=== PATIENT | male | born 1985 | race African-American/Black ===

== ENCOUNTER → 2019-05-29 | Outpatient (CLI) | payer SELFPAY ==
[~2019-05-29] MED LIST: BENZ200C70 PO; MUCI600T31 PO; VENTAER INH
== END ==
LOC: M OUTALCOH 08:19
PROVIDERS: ATTEND Psychiatry & Neurology Psychiatry
DX: Z13.39 Encounter for screening examination for other mental health and behavioral disorders (principal); F15.20 Other stimulant dependence, uncomplicated; F12.20 Cannabis dependence, uncomplicated

== ENCOUNTER 2019-07-02 16:00 | Outpatient (RCR) | payer SELFPAY | END 2019-07-03 | LOC: M OUTALCOH 16:00 | PROVIDERS: ATTEND Psychiatry & Neurology Psychiatry | DX: F15.20 Other stimulant dependence, uncomplicated (principal); F12.10 Cannabis abuse, uncomplicated ==

== ENCOUNTER 2019-07-08 15:48 | Outpatient (RCR) | payer MEDICAID, SELFPAY | END 2019-08-02 | LOC: M OUTALCOH 15:48 | PROVIDERS: ATTEND Psychiatry & Neurology Psychiatry | DX: F15.20 Other stimulant dependence, uncomplicated (principal); F12.10 Cannabis abuse, uncomplicated ==

== ENCOUNTER 2019-08-07 06:42 | Emergency (ER) | payer MEDICAID ==
[~2019-08-07] VITALS: Ht 180.3 cm; Wt 95.5 kg
--- NOTE | 2019-08-07 08:18 | REP ---
Two-view chest: 08/07/2019. Indication: Cough. Comparison: None. Findings: There is no air space consolidation. No pleural effusion or pneumothorax are detected. The cardiomediastinal silhouette is unremarkable. Impression: Clear lungs. Electronically Signed by Brian Gordon DO 08/07/2019 08:09 A
[2019-08-07] MEDS ORDERED: VENTAER INH (08:40)
[2019-08-07] MEDS ORDERED: BENZ200C70 PO (08:40)
[2019-08-07] MEDS ORDERED: MUCI600T31 PO (08:40)
[2019-08-07 08:46] VITALS: BP 154/102
== END 2019-08-07 08:54 | disposition home or self-care (01) ==
LOC: M ED 06:42
DX: J20.9 Acute bronchitis, unspecified (principal); F17.200 Nicotine dependence, unspecified, uncomplicated; F12.20 Cannabis dependence, uncomplicated; Z88.2 Allergy status to sulfonamides

== ENCOUNTER 2019-08-13 08:20 | Emergency (ER) | payer MEDICAID ==
[~2019-08-13] VITALS: Ht 180.3 cm; Wt 97.5 kg
[2019-08-13 08:21] VITALS: BP 167/110
== END 2019-08-13 09:42 | disposition left against medical advice (07) ==
LOC: M ED 08:20
DX: Z53.21 Procedure and treatment not carried out due to patient leaving prior to being seen by health care provider (principal)

== ENCOUNTER 2019-12-05 18:20 | Emergency (ER) | payer MEDICAID ==
[~2019-12-05] VITALS: Ht 185.4 cm; Wt 90.4 kg
[2019-12-05] MEDS ORDERED: NS 1,000 ML IV ONE ×2 (18:30→19:45)
[2019-12-05 18:44] LABS: BASO % 0.6 % (0.0-1.0); EOS % 0.6 % (0.0-3.0); HEMATOCRIT 40.6 % (42.0-52.0); HEMOGLOBIN 14.2 g/dl (13.5-17.5); LYMPH # 1.3 10^3/uL (1.5-5.0); LYMPH % 27.2 % (24.0-44.0); MEAN CORPUSCULAR HEMOGLOBIN 32.3 pg (27.0-33.0); MEAN CORPUSCULAR VOLUME 92.3 fl (80.0-96.0); MONO # 0.6 10^3/uL (0.0-0.8); MONO % 13.3 % (0.0-5.0); NEUTROPHILS # 2.8 10^3/uL (1.5-8.5); NEUTROPHILS % 58.1 % (36.0-66.0); PLATELET COUNT, AUTOMATED 238 10^3/uL (150-450); WHITE BLOOD COUNT 4.8 10^3/uL (4.0-10.0)
[2019-12-05 19:28] LABS: ACETAMINOPHEN LEVEL < 2.0 UG/ML (10.0-30.0); ALBUMIN 4.3 GM/DL (3.2-5.2); ALT/SGPT 20 U/L (12-78); BILIRUBIN,DIRECT 0.2 MG/DL (0.0-0.2); BILIRUBIN,TOTAL 0.7 MG/DL (0.2-1.0); BLOOD UREA NITROGEN 15 MG/DL (7-18); CALCIUM LEVEL 9.3 MG/DL (8.5-10.1); CARBON DIOXIDE LEVEL 29 MEQ/L (21-32); CHLORIDE LEVEL 105 MEQ/L (98-107); CPK CREATINE PHOSPHOKINASE 428 U/L (39-308); CREATININE FOR GFR 1.04 MG/DL (0.70-1.30); ETHYL ALCOHOL (ETHANOL) < 0.003 % (0.000-0.010); GLOMERULAR FILTRATION RATE > 60.0 (>60); GLUCOSE, FASTING 111 MG/DL (70-100); POTASSIUM SERUM 3.7 MEQ/L (3.5-5.1); SALICYLATE LEVEL < 1.7 MG/DL (5.0-30.0); SODIUM LEVEL 139 MEQ/L (136-145); THYROID STIMULATING HORMONE 0.574 uIU/ML (0.358-3.740); TOTAL PROTEIN 7.9 GM/DL (6.4-8.2)
[2019-12-05 20:10] LABS: AMPHETAMINES LEVEL URINE POSITIVE (NEGATIVE); BARBITURATES URINE NEGATIVE (NEGATIVE); BENZODIAZEPINES URINE NEGATIVE (NEGATIVE); CANNABINOIDS URINE POSITIVE (NEGATIVE); COCAINE METABOLITE URINE NEGATIVE (NEGATIVE); METHADONE URINE NEGATIVE (NEGATIVE); OPIATES URINE NEGATIVE (NEGATIVE); PHENCYCLIDINE URINE NEGATIVE (NEGATIVE)
[2019-12-05 21:53] VITALS: BP 168/103
--- NOTE | 2019-12-06 06:35 | REP ---
CT BRAIN WITHOUT IV CONTRAST: CT brain performed without IV contrast. Coronal reconstruction images are performed. Ventricles are normal in size and position with no midline shift of mass effect. Tinajero-white differentiation is well maintained. There is no acute intracranial hemorrhage. There is no extra-axial fluid collection. No skull fracture is seen. Paranasal sinuses and mastoid air cells are well aerated and clear. IMPRESSION: Negative noncontrast CT brain. A preliminary report was provided by [facility] at the time of the exam. Electronically Signed by Nick Tinajero MD 12/06/2019 12:34 P
== END 2019-12-05 21:56 | disposition home or self-care (01) ==
LOC: M ED 18:20
DX: F12.10 Cannabis abuse, uncomplicated (principal); F15.10 Other stimulant abuse, uncomplicated; Z88.1 Allergy status to other antibiotic agents; Z88.2 Allergy status to sulfonamides; F17.210 Nicotine dependence, cigarettes, uncomplicated
CPT/HCPCS: 70450; 80048; 80076; 80307; 82550; 84443; 85025; 93041; 94760; 96360; 96361; 99284; G0480

== ENCOUNTER 2019-12-06 03:25 | Inpatient (IN) | payer MEDICAID ==
[2019-12-06] VITALS (18 sets, daily range): BP systolic 133–163; BP diastolic 86–116; O2SAT 100
[~2019-12-06] VITALS: Ht 170.2 cm; Wt 92.1 kg
[2019-12-06] MEDS ORDERED: PROPOFOL 1,000 MG/100 ML VIAL As Ordered ONE ×2 (03:31→20:12)
[2019-12-06 03:57] LABS: ABG BASE EXCESS -4.5 (-2.0-2.0); ABG HCO3 21.6 MEQ/L (22.0-26.0); ABG O2 SATURATION 98.8 % (95.0-99.0); ABG PARTIAL PRESSURE CO2 43.1 mmHg (35.0-45.0); ABG PARTIAL PRESSURE O2 139.8 mmHg (75.0-100.0); ABG STANDARD HCO3 20.8 MEQ/L (22.0-26.0); ABG TOTAL CO2 22.9 MEQ/L (22.0-29.0); ABG pH (ARTERIAL) 7.317 UNITS (7.350-7.450)
[2019-12-06] MEDS ORDERED: ETOMIDATE INJ 20MG/10ML VIAL IV ONE (04:00)
[2019-12-06] MEDS ORDERED: SUCCINYLCHOLINE INJ 200 MG/10 ML VIAL (J0330) IV ONE (04:00)
[2019-12-06] MEDS ORDERED: LIDOCAINE 2% 5ML JELLY UROJET TOP ONE (04:00)
[2019-12-06] MEDS: propofoL 1,000 MG in IV 1 EA IV SCH ×9 (04:34→22:58)
[2019-12-06] MEDS ORDERED: AMIODARONE HCL 150 MG in IV 1 EA IV STA (04:44)
[2019-12-06] MEDS ORDERED: VECURONIUM BROMIDE 10 MG VIAL IV ONE ×2 (04:45)
[2019-12-06 04:57] LABS: APPEARANCE, CSF CLEAR (CLEAR); COLOR, CSF COLORLESS (COLORLESS); CSF TUBE# CELL CNT TUBE 2
[2019-12-06 04:58] LABS: APPEARANCE, CSF CLEAR (CLEAR); COLOR, CSF COLORLESS (COLORLESS); CSF TUBE# CELL CNT TUBE 4
[2019-12-06 05:05] LABS: BASO % 0.6 % (0.0-1.0); EOS % 0.4 % (0.0-3.0); HEMOGLOBIN 14.1 g/dl (13.5-17.5); LYMPH # 1.8 10^3/uL (1.5-5.0); LYMPH % 26.8 % (24.0-44.0); MEAN CORPUSCULAR HEMOGLOBIN 31.9 pg (27.0-33.0); MEAN CORPUSCULAR HGB CONC 34.4 g/dl (32.0-36.5); MEAN CORPUSCULAR VOLUME 92.8 fl (80.0-96.0); MONO # 0.7 10^3/uL (0.0-0.8); MONO % 10.9 % (0.0-5.0); NEUTROPHILS # 4.1 10^3/uL (1.5-8.5); PLATELET COUNT, AUTOMATED 274 10^3/uL (150-450); RED BLOOD COUNT 4.42 10^6/uL (4.30-6.10); WHITE BLOOD COUNT 6.7 10^3/uL (4.0-10.0)
[2019-12-06 05:15] LABS: AMORPHOUS SEDIMENT SMALL (NEGATIVE); APPEARANCE, URINE HAZY (CLEAR); BACTERIA, URINE AUTO NEGATIVE (NEGATIVE); BILIRUBIN, URINE AUTO NEGATIVE (NEGATIVE); BLOOD, URINE BLOOD 1+ (NEGATIVE); COLOR, URINE YELLOW (YELLOW); GLUCOSE, URINE (UA) AUTO NEGATIVE (NEGATIVE); KETONE, URINE AUTO TRACE mg/dL (NEGATIVE); LEUKOCYTE ESTERASE, URINE AUTO NEGATIVE (NEGATIVE); MUCUS, URINE SMALL (NEGATIVE); NITRITE, URINE AUTO NEGATIVE (NEGATIVE); PROTEIN, URINE AUTO NEGATIVE (NEGATIVE); RBC, URINE AUTO 8 /HPF (0-3); SPECIFIC GRAVITY URINE AUTO 1.011 (1.002-1.035); SQUAMOUS EPITHELIAL CELL UR AU 0 /HPF (0-6); UROBILINOGEN, URINE AUTO 0.2 mg/dL (0.0-2.0); WBC, URINE AUTO 5 /HPF (0-3)
[2019-12-06 05:17] LABS: CSF TUBE# GLU TUBE 1; CSF TUBE# TP TUBE 1; GLUCOSE CSF 75 MG/DL (40-75); TOTAL PROTEIN,CSF 34 MG/DL (15-45)
[2019-12-06 05:21] LABS: ALBUMIN 4.3 GM/DL (3.2-5.2); ALT/SGPT 19 U/L (12-78); BILIRUBIN,DIRECT 0.3 MG/DL (0.0-0.2); BLOOD UREA NITROGEN 11 MG/DL (7-18); CALCIUM LEVEL 8.8 MG/DL (8.5-10.1); CARBON DIOXIDE LEVEL 24 MEQ/L (21-32); CHLORIDE LEVEL 104 MEQ/L (98-107); CPK CREATINE PHOSPHOKINASE 477 U/L (39-308); CREATININE FOR GFR 1.21 MG/DL (0.70-1.30); ETHYL ALCOHOL (ETHANOL) < 0.003 % (0.000-0.010); GLOMERULAR FILTRATION RATE > 60.0 (>60); GLUCOSE, FASTING 114 MG/DL (70-100); POTASSIUM SERUM 3.5 MEQ/L (3.5-5.1); SODIUM LEVEL 137 MEQ/L (136-145)
[2019-12-06] MEDS ORDERED: NS 1,000 ML IV ONE ×2 (05:30→05:45)
[2019-12-06 05:34] LABS: AMPHETAMINES LEVEL URINE POSITIVE (NEGATIVE); BARBITURATES URINE NEGATIVE (NEGATIVE); BENZODIAZEPINES URINE NEGATIVE (NEGATIVE); CANNABINOIDS URINE POSITIVE (NEGATIVE); COCAINE METABOLITE URINE NEGATIVE (NEGATIVE); METHADONE URINE NEGATIVE (NEGATIVE); OPIATES URINE NEGATIVE (NEGATIVE); PHENCYCLIDINE URINE NEGATIVE (NEGATIVE)
[2019-12-06] MEDS ORDERED: MIDAZOLAM INJ 2 MG/2 ML VIAL (J2250) IV STA (06:10)
[2019-12-06] MEDS ORDERED: ALBUTEROL SULFATE 2.5 MG/0.5 ML INH NEB SOLN NEB PRN (06:45)
[2019-12-06] MEDS: NS 1,000 ML IV SCH ×3 (06:53→20:18)
[2019-12-06] MEDS: PANTOPRAZOLE 40MG INJ (PROTONIX) (C9113) IV SCH (08:27)
[2019-12-06] MEDS: ENOXAPARIN 30 MG/0.3 ML SYR (J1650) SC SCH (08:28)
[2019-12-06] MEDS: CHLORHEXIDINE GLUCONATE 0.12 % 15ML UDC (PERIDEX ORAL RINSE) MT SCH ×2 (08:28→20:16)
--- NOTE | 2019-12-06 08:36 | ECGEPIP ---
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
[2019-12-06 09:16] LABS: INFLUENZA A AMPLIFICATION NEGATIVE (NEGATIVE); INFLUENZA B AMPLIFICATION NEGATIVE (NEGATIVE)
--- NOTE | 2019-12-06 09:44 | HPE ---
DATE OF ADMISSION: 12/06/2019 HISTORY OF PRESENT ILLNESS: Mr. Miguel a 34-year-old male who was brought to the emergency department this evening by the police, he was very combative, he was very agitated in the emergency department and was spitting at staff. Decision was made to intubate. Because of his combativeness, it was felt necessary to intubate him to protect himself from harm. He was so combative that the police had him in four-points and he had to be paralyzed for intubation. Mr. Miguel had previously been to the emergency department this afternoon for altered mental status, felt secondary to amphetamines abuse. After he had been observed for a period of time and given an IV fluid bolus, he was felt ready for discharge and was discharged to home. His tox screen at that time was positive for amphetamine and cannabinoids but otherwise negative. Alcohol was less than 0.03. PAST MEDICAL HISTORY: No other history is obtainable secondary to agitation. MEDICATIONS ON ADMISSION: No known medications, but again history is not obtainable secondary to intubation. ALLERGIES: SULFA. SOCIAL HISTORY, FAMILY HISTORY AND REVIEW OF SYSTEMS: Unobtainable secondary to intubation. PHYSICAL EXAMINATION: General: Mr. Miguel is lying in bed synchronous with the ventilator. He is sedated. Vital signs: Temperature 99.9 with a maximum temperature (t-max) of 101, pulse 72, respiratory rate 16, blood pressure 152/91 with a MAP of 111, SPO2 100% on FIO2 of 0.4. HEENT: Anicteric, pupils 2-3 mm and reactive (had been reported as dilated when he came in). Nares: Patent bilaterally. Oropharynx: ET tube in place. Neck: Supple, without thyromegaly or masses. Without jugular venous distention (JVD), trachea is midline. Lymphatics: Without cervical or supraclavicular lymphadenopathy. Chest: Normal shape. Lungs: Symmetric excursion, good air entry. No wheeze, rhonchi, rhonchi or crackle on tidal excursion. Normal I to E. No accessory muscle usage or retractions. Cardiovascular: Regular rate and rhythm with normal S1, S2. No murmur, rub or gallop appreciated. Abdomen: Positive bowel sounds, soft, nondistended. No hepatosplenomegaly or masses appreciated. Extremities: Without clubbing, cyanosis or edema. Palpable pedal pulses bilaterally. Skin: Notable for some tattoos. No track weinbegr seen. LABORATORY DATA: CBC showed a hemoglobin of 14.1, hematocrit 41, platelet count 274,000, white blood cell count 6700 with a differential 61% neutrophils, 27% lymphocytes, 11% monocytes. Chemistries shows sodium 137, potassium 3.5, chloride 104, bicarbonate 24, anion gap 9, BUN 11, creatinine 1.2, glucose 114, lactic acid 6.3, calcium 8.8, total bilirubin 1.0, tract bilirubin 0.3, AST 23, ALT 19, alkaline phosphatase 43, CK 477, total protein 8.0, albumin 4.3. Urinalysis showed a pH of 6, specific gravity 1.01, trace ketones, 1+ blood, 5 WBCs, 8 RBCs, and negative for bacteria. CSF on the first tube was clear with 2 WBCs and less than two RBCs, glucose 75 and total protein of 34. Urine toxicology screen is again positive for amphetamines and cannabinoids. Alcohol was less than 0.0003. Arterial blood gas was 7.32 / 43/140 with a measured saturation of 99%, a base excess of -4.5. I do not know how much oxygen this was on, but I believe this was shortly after intubation. I reviewed his chest x-ray, which shows normal-appearing cardiac silhouette and pulmonary vascular shadows. No acute infiltrates. ET tube is in good position. His head CT reportedly showed no pathology, and I did not see any in my review of the film. IMPRESSION: 1. Acute respiratory failure leading to mechanical ventilation secondary to need for sedation. 2. Severe agitation leading to need for intubation, there is likely a contribution from amphetamines but given his level of agitation, I question if there is not a synthetic involved as well. 3. Amphetamine abuse. RECOMMENDATIONS: We will continue with intubation and sedation. Given his level of agitation, I would not be surprised that he does not require sedation for 1-2 days. We will follow lung protective strategy with the ventilator. Follow VAP protocol for the ventilator. Critical care time of 40 minutes, not including procedure time.
--- NOTE | 2019-12-06 10:41 | REP ---
CT BRAIN WITHOUT CONTRAST: CT brain performed without IV contrast. Coronal reconstruction images are performed. Comparison made with prior study of 12/05/2019. Ventricles are again normal in size and position. There is no midline shift or mass effect. Tinajero-white differentiation is well maintained. There is no acute intracranial hemorrhage. There is no extra-axial fluid collection. Bone window examination is unremarkable. IMPRESSION: Negative noncontrast CT brain. Preliminary report provided by [facility] at the time of the exam. Electronically Signed by Nick Tinajero MD 12/06/2019 12:36 P
--- NOTE | 2019-12-06 11:26 | REP ---
CHEST, SINGLE VIEW: Single view of the chest is performed and compared to a prior study of 08/07/2019. There is no acute infiltrate or pulmonary edema. Heart is normal in size. Mediastinal silhouette is unremarkable. Endotracheal tube is seen with the tip approximately 5 cm above the orion. Electronically Signed by Nick Tinajero MD 12/06/2019 12:48 P
[2019-12-06 11:47] LABS: ABG BASE EXCESS 0.4 (-2.0-2.0); ABG HCO3 25.3 MEQ/L (22.0-26.0); ABG O2 SATURATION 99.3 % (95.0-99.0); ABG PARTIAL PRESSURE CO2 41.9 mmHg (35.0-45.0); ABG PARTIAL PRESSURE O2 198.5 mmHg (75.0-100.0); ABG STANDARD HCO3 24.9 MEQ/L (22.0-26.0); ABG TOTAL CO2 26.6 MEQ/L (22.0-29.0); ABG pH (ARTERIAL) 7.399 UNITS (7.350-7.450)
[2019-12-06 17:29] LABS: CK-MB VALUE MASS 3.7 NG/ML (<3.6); CPK CREATINE PHOSPHOKINASE 377 U/L (39-308); MB/CK RELATIVE INDEX 0.98 (< OR =4); TROPONIN I < 0.02 NG/ML (< 0.10)
[2019-12-06] MEDS: MIDAZOLAM INJ 2 MG/2 ML VIAL (J2250) IV PRN ×2 (18:36→22:12)
[2019-12-07] VITALS (26 sets, daily range): BP systolic 113–181; BP diastolic 65–115; O2SAT 100
[2019-12-07] MEDS: propofoL 1,000 MG in IV 1 EA IV SCH ×10 (01:05→21:53)
[2019-12-07] MEDS: MIDAZOLAM INJ 2 MG/2 ML VIAL (J2250) IV PRN ×7 (02:07→16:03)
[2019-12-07 04:29] LABS: BASO % 0.7 % (0.0-1.0); EOS # 0.1 10^3/uL (0.0-0.5); EOS % 1.2 % (0.0-3.0); HEMATOCRIT 37.5 % (42.0-52.0); HEMOGLOBIN 12.8 g/dl (13.5-17.5); LYMPH # 1.1 10^3/uL (1.5-5.0); LYMPH % 25.8 % (24.0-44.0); MEAN CORPUSCULAR HEMOGLOBIN 31.9 pg (27.0-33.0); MEAN CORPUSCULAR HGB CONC 34.1 g/dl (32.0-36.5); MEAN CORPUSCULAR VOLUME 93.5 fl (80.0-96.0); MONO # 0.4 10^3/uL (0.0-0.8); NEUTROPHILS # 2.6 10^3/uL (1.5-8.5); NEUTROPHILS % 63.3 % (36.0-66.0); PLATELET COUNT, AUTOMATED 208 10^3/uL (150-450); RED BLOOD COUNT 4.01 10^6/uL (4.30-6.10); WHITE BLOOD COUNT 4.1 10^3/uL (4.0-10.0)
[2019-12-07 05:14] LABS: ALBUMIN 3.1 GM/DL (3.2-5.2); ALT/SGPT 13 U/L (12-78); BILIRUBIN,TOTAL 0.4 MG/DL (0.2-1.0); BLOOD UREA NITROGEN 6 MG/DL (7-18); CALCIUM LEVEL 8.3 MG/DL (8.5-10.1); CARBON DIOXIDE LEVEL 29 MEQ/L (21-32); CHLORIDE LEVEL 110 MEQ/L (98-107); CHOLESTEROL LEVEL 143 MG/DL (< 200); CPK CREATINE PHOSPHOKINASE 249 U/L (39-308); CREATININE FOR GFR 0.76 MG/DL (0.70-1.30); GLOMERULAR FILTRATION RATE > 60.0 (>60); GLUCOSE, FASTING 75 MG/DL (70-100); LDH LACTATE DEHYDROGENASE 172 U/L (87-241); MAGNESIUM LEVEL 2.2 MG/DL (1.8-2.4); PHOSPHORUS LEVEL 3.2 MG/DL (2.5-4.9); POTASSIUM SERUM 3.3 MEQ/L (3.5-5.1); SODIUM LEVEL 141 MEQ/L (136-145); TOTAL PROTEIN 6.4 GM/DL (6.4-8.2); TRIGLYCERIDES LEVEL 70 MG/DL (<150)
[2019-12-07] MEDS: MORPHINE 2 MG/ML 1ML VIAL (J2270) IV PRN ×2 (06:04→12:04)
[2019-12-07] MEDS: CHLORHEXIDINE GLUCONATE 0.12 % 15ML UDC (PERIDEX ORAL RINSE) MT SCH ×2 (08:09→20:11)
[2019-12-07] MEDS: PANTOPRAZOLE 40MG INJ (PROTONIX) (C9113) IV SCH (08:09)
[2019-12-07] MEDS: NS 1,000 ML IV SCH (08:10)
[2019-12-07] MEDS: ENOXAPARIN 30 MG/0.3 ML SYR (J1650) SC SCH (08:10)
--- NOTE | 2019-12-07 09:17 | ECGEPIP ---
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
--- NOTE | 2019-12-07 10:12 | REP ---
CHEST, SINGLE VIEW: Single view of the chest is performed. Comparison 12/06/2019. An endotracheal tube is seen with the tip 1.7 cm above the orion. Nasogastric tube traverses into the stomach. Heart is normal in size. No infiltrate is seen in either lung. Electronically Signed by Nick Tinajero MD 12/07/2019 11:01 A
[2019-12-07] MEDS ORDERED: REFRIGERATOR IV KEYS XX PRN (13:00)
[2019-12-07] MEDS ORDERED: MIDAZOLAM HCL 100 MG in D5W 80 ML IV SCH (14:00)
[2019-12-07] MEDS: KCL 20MEQ IN D5/0.45NS 1000ML 1,000 ML IV SCH (14:21)
[2019-12-07] MEDS: KCL 10MEQ/100ML SWI (KRUN) 10 MEQ in IV 1 EA IV SCH ×2 (14:21→15:25)
--- NOTE | 2019-12-07 17:56 | CCN ---
DATE: 12/07/2019 NOTE: Mr. Miguel remains critically ill with acute respiratory failure secondary to the need for sedation given agitation. He had some difficulty with hypertension throughout the day yesterday that was, in part, responsive to benzodiazepine. It is not known whether or not he has hypertension at baseline. This morning, on his sedation holiday, he actively struck out at nursing . It appeared to be a conscious movement. One of the therapists asking him if he had taken Dariana and he looked her in the eyes and nodded yes. It is not known if this is a true response to a synthetic. He has minimal secretions. No other events overnight. OBJECTIVE: PHYSICAL EXAMINATION: GENERAL: Mr. Miguel is lying in bed. He had a few moments of agitation when I was there that responded to increased sedation. VITAL SIGNS: Temperature 97.8, which is his maximum temperature (T-max), most recent blood pressure 162/106, which was around the time of his sedation trial, pulse 72, respiratory rate 18, SpO2 100% on FiO2 of 0.3. HEENT: Anicteric, pupils 3-4 mm and sluggish. Nares: Patent bilaterally. Oropharynx: Endotracheal (ET) tube and orogastric (OG) tube in place. NECK: Supple, without jugular venous distention (JVD), thyromegaly or masses, trachea is midline. LYMPHATICS: Without cervical or supraclavicular lymphadenopathy. LUNGS: Symmetric excursion, good air entry, no wheeze, rhonchi or crackle on tidal excursion. Normal inspiratory to expiratory ratio (I:E). No accessory muscle use retractions. CARDIOVASCULAR: Regular rate and rhythm with a normal S1, S2. No murmur, rub or gallop appreciated. ABDOMEN: Positive bowel sounds, soft, nondistended, no hepatosplenomegaly or masses appreciated. EXTREMITIES: Without clubbing, cyanosis or significant edema. Warm and well-perfused. LABORATORY DATA: Complete blood count (CBC) from this morning showed a hemoglobin of 12.8, hematocrit 37.5, platelet count 209,000, white blood cell count 4100, with a differential of 63% neutrophils, 26% lymphocytes, 9% monocytes. Chemistries from this morning showed a sodium 141, potassium 3.3, chloride 110, bicarbonate 29, anion gap 2, BUN 6, creatinine 0.8, glucose 75, calcium 8.3, phosphorus 3.2, magnesium 2.2. Total bilirubin 0.4, AST 17, ALT 13, alkaline phosphatase 34, LDH 172, CK 249, total protein 6.4, albumin 3.1. Yesterday afternoon, he had a CK of 377 (down from 477) and a troponin-I of less than 0.02. He had an EKG done yesterday afternoon which showed a sinus rhythm with a rate of 67. There were findings of early repolarization and no change compared to his EKG that was obtained at the time of admission. Yesterdays intake and output (I and O): 3567 in and 3625 out, making him negative 58. Thus far today, 69 in and 750 out, making him a negative 281. I reviewed his chest x-ray as well as the report from earlier today. That x-ray showed normal-appearing cardiac silhouette and pulmonary vascular shadows. Normal-appearing mediastinal and hilar regions. No consolidated regions. ET tube in good position. IMPRESSION: 1. Acute respiratory failure secondary to sedation needed for agitation related to an overdose. 2. Agitation felt secondary to drug usage. Toxicology screen was positive for amphetamines. It is suspected based on his level of agitation that he also has a synthetic involved as well. He appeared to indicate that is the case this morning when respiratory therapy was asking him questions. 3. Known amphetamine abuse. 4. Hypertension. RECOMMENDATIONS: 1. With his level of agitation, he is not yet ready for extubation. 2. He is maxed out on propofol. Therefore, we will add a Versed drip. I have asked that not be titrated, but rather be kept at 2 mg per hour with use of boluses on top of that. 3. In regards to his hypertension, would start with increasing benzodiazepine usage. 4. Hypertension. This may be in part secondary to amphetamine usage. It is also unknown whether he has underlying hypertension at baseline. Critical care time: 35 minutes.
[2019-12-08] VITALS (13 sets, daily range): BP systolic 119–159; BP diastolic 64–87
[2019-12-08] MEDS: propofoL 1,000 MG in IV 1 EA IV SCH ×4 (00:09→07:13)
[2019-12-08] MEDS: MIDAZOLAM INJ 2 MG/2 ML VIAL (J2250) IV PRN ×3 (00:32→06:03)
[2019-12-08] MEDS: KCL 20MEQ IN D5/0.45NS 1000ML 1,000 ML IV SCH (03:59)
[2019-12-08 06:17] LABS: BASO % 0.3 % (0.0-1.0); EOS % 0.6 % (0.0-3.0); HEMATOCRIT 36.9 % (42.0-52.0); HEMOGLOBIN 13.1 g/dl (13.5-17.5); LYMPH # 0.6 10^3/uL (1.5-5.0); LYMPH % 8.5 % (24.0-44.0); MEAN CORPUSCULAR HEMOGLOBIN 34.1 pg (27.0-33.0); MEAN CORPUSCULAR HGB CONC 35.5 g/dl (32.0-36.5); MEAN CORPUSCULAR VOLUME 96.1 fl (80.0-96.0); MONO # 0.5 10^3/uL (0.0-0.8); MONO % 7.2 % (0.0-5.0); NEUTROPHILS # 5.7 10^3/uL (1.5-8.5); NEUTROPHILS % 83.1 % (36.0-66.0); PLATELET COUNT, AUTOMATED 205 10^3/uL (150-450); RED BLOOD COUNT 3.84 10^6/uL (4.30-6.10); WHITE BLOOD COUNT 6.8 10^3/uL (4.0-10.0)
--- NOTE | 2019-12-08 07:58 | REP ---
Portable chest x-ray: Single view. History: Intubated patient. Comparison study December 07, 2019. Findings: The patient is rotated slightly to the left. Endotracheal tube is seen in good position just above the level of the transverse aorta. An NG tube is seen coursing into the gastric fundus. The lungs are symmetrically aerated and free of infiltrate. Pleural angles are sharp. Heart size is normal. No infiltrate is seen. Impression: No acute disease. Electronically Signed by Carroll Allen MD 12/08/2019 07:50 A
[2019-12-08 08:18] LABS: ALBUMIN 3.2 GM/DL (3.2-5.2); ALT/SGPT 16 U/L (12-78); BILIRUBIN,TOTAL 0.4 MG/DL (0.2-1.0); BLOOD UREA NITROGEN 3 MG/DL (7-18); CALCIUM LEVEL 8.5 MG/DL (8.5-10.1); CARBON DIOXIDE LEVEL 30 MEQ/L (21-32); CHLORIDE LEVEL 107 MEQ/L (98-107); CHOLESTEROL LEVEL 153 MG/DL (< 200); CPK CREATINE PHOSPHOKINASE 150 U/L (39-308); CREATININE FOR GFR 0.99 MG/DL (0.70-1.30); GLOMERULAR FILTRATION RATE > 60.0 (>60); GLUCOSE, FASTING 100 MG/DL (70-100); LDH LACTATE DEHYDROGENASE 197 U/L (87-241); MAGNESIUM LEVEL 1.9 MG/DL (1.8-2.4); PHOSPHORUS LEVEL 2.7 MG/DL (2.5-4.9); POTASSIUM SERUM 3.5 MEQ/L (3.5-5.1); SODIUM LEVEL 141 MEQ/L (136-145); TOTAL PROTEIN 6.6 GM/DL (6.4-8.2); TRIGLYCERIDES LEVEL 159 MG/DL (<150)
[2019-12-08] MEDS: PANTOPRAZOLE 40MG INJ (PROTONIX) (C9113) IV SCH (09:00)
[2019-12-08] MEDS: ENOXAPARIN 30 MG/0.3 ML SYR (J1650) SC SCH (09:00)
--- NOTE | 2019-12-08 11:45 | CCN ---
DATE: 12/08/2019 NOTE: Mr. Miguel stayed well overnight. He had improved blood pressures, either secondary to being on a Versed drip or time. He did have a temperature of 100.6. He had a small amount of discolored sputum this morning. On his sedation holiday he was alert, awake and following commands. He had a strong cough. At bedside, he was placed on a weaning trial with a pressure support of 5 and a PEEP of 5 and did well, taking in tidal volumes of 350-400, and rapid shallow breathing index in the 60s. It was therefore felt that he could be extubated. OBJECTIVE: PHYSICAL EXAMINATION: GENERAL: Mr. Miguel is intubated and synchronous with the ventilator. VITAL SIGNS: Temperature 98.7, pulse 86, respiratory rate 15, blood pressure 140/85. SPO2 100% on FiO2 of 0.3. HEENT: Anicteric, pupils 3 mm and brisk. Nares: Patent bilaterally. Oropharynx: ET tube and OG tube in place. NECK: Supple, without JVD, without thyromegaly or masses, trachea is midline. LYMPH: Without cervical or supraclavicular lymphadenopathy. LUNGS: Symmetric excursion, good air entry. No wheeze, rhonchi or crackle on tidaled excursion. Normal I:E. ABDOMEN: Positive bowel sounds, soft, no hepatosplenomegaly or masses appreciated. EXTREMITIES: Warm and well-perfused, palpable pedal pulses bilaterally. LABORATORY DATA: CBC from this morning showed a hemoglobin of 13.1, hematocrit 36.9, platelet count 205,000, white blood cell count 6800 with a differential of 83% neutrophils, 9% lymphocytes, and 7% monocytes. Chemistry showed sodium 141, potassium 3.5, chloride 107, bicarbonate 30, anion gap 4, BUN 3, creatinine 1.0, glucose 100, calcium 8.5, phosphorus 2.7, magnesium 1.9, total bilirubin 0.4, AST 20, ALT 16, alkaline phosphatase 42, LDH 197, CK 150 (down from 249), total protein 6.66, albumin 3.2. Yesterday's intake and output show 1730 in and 2425 out making him negative 695. Thus far today 1326 in and 1425 out making him negative 99. Weight 92.1 kg. I reviewed his chest x-ray was well as the report from earlier today. That x-ray showed normal appearing cardiac silhouette and pulmonary vascular shadows. Normal appearing mediastinal and hilar regions. No acute infiltrates. Endotracheal tube in good position. IMPRESSION: 1. Acute respiratory failure secondary to sedation required for agitation. 2. Agitation felt secondary did drug usage. Toxicology screen was positive for amphetamines. It was also suspected, based on his level agitation, that he also took a synthetic. 3. Known amphetamine abuse. 4. Hypertension. RECOMMENDATIONS: 1. As noted above, on a bedside weaning trial he appeared ready for extubation and we will proceed with extubation. 2. Given that there are reports that he was found in the community asking people to shoot, we will obtain a psychiatry consult. 3. In regards to his hypertension, will continue to monitor now once he is no longer on benzodiazepines. We will also be able to determine whether or not he has ever carried a diagnosis of hypertension. ADDENDUM: I saw Mr. Miguel a couple of hours after he was extubated. He is doing well. He passed his bedside swallow evaluation and is asking for food. He is beginning to recall the events that led up to his admission. He is hemodynamically stable following extubation with a blood pressure 139/80 (103), pulse 92, SPO2 98% on room air. CRITICAL CARE TIME: 35 minutes not including procedure time.
[2019-12-08] MEDS ORDERED: ACETAMINOPHEN TAB 650MG DOSE (2X325MG) PO PRN (12:15)
[2019-12-08] MEDS: DOXYCYCLINE HYCLATE 100 MG TAB PO SCH ×2 (12:44→21:25)
--- NOTE | 2019-12-08 13:47 | MHCRPDOC ---
[facility] Consultation Consultation DATE OF CONSULTATION: 12/08/19 CONSULTATION REQUESTED BY: REASON FOR CONSULTATION: . RELEVANT HISTORY: . PAST PSYCHIATRIC HISTORY: PAST MEDICAL HISTORY: FAMILY HISTORY: Mother: Father: Siblings: Children: PERSONAL AND SOCIAL HISTORY: The patient was born and raised in [place]. 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 MENTAL STATUS EXAMINATION: Patient is a [AGE]-year old male, who is . Speech is . Language skills are . Thought processes including: . Thought content: . Abstract reasoning, and computation: . Description of associations: . Description of abnormal or psychotic thoughts: . Judgment: . Insight: . Orientation to . Recent and remote memory: . Attention span and concentration: . Language: . Fund of knowledge: . Mood: . Affect: . DIAGNOSIS: 1. . PLAN: 1. . 2. . Vital Signs Vital Signs Date Time Temp Pulse Resp B/P (MAP) Pulse Ox O2 Delivery O2 Flow Rate FiO2 12/08/19 12:00 101.5 89 143/81 (101) 96 Room Air 12/08/19 09:00 28 12/08/19 07:13 15 Laboratory Data 24H Labs Laboratory Tests 2 12/08/19 05:47: Immature Granulocyte % (Auto) 0.3, Neutrophils (%) (Auto) 83.1H, Lymphocytes (%) (Auto) 8.5L, Monocytes (%) (Auto) 7.2H, Eosinophils (%) (Auto) 0.6, Basophils (%) (Auto) 0.3, Neutrophils # (Auto) 5.7, Lymphocytes # (Auto) 0.6L, Monocytes # (Auto) 0.5, Eosinophils # (Auto) 0.0, Basophils # (Auto) 0.0, Nucleated Red Blood Cells % (auto) 0.0 12/08/19 07:35: Anion Gap 4L, Glomerular Filtration Rate > 60.0, Calcium Level 8.5, Phosphorus Level 2.7, Magnesium Level 1.9, Total Bilirubin 0.4, Aspartate Amino Transf (AST/SGOT) 20, Alanine Aminotransferase (ALT/SGPT) 16, Alkaline Phosphatase 42L, Lactate Dehydrogenase 197, Total Creatine Kinase 150, Total Protein 6.6, Albumin 3.2, Albumin/Globulin Ratio 0.94L, Triglycerides Level 159H, Cholesterol Level 153 Home Medications Current Medications Current Medications Medications (Trade) Dose Ordered Sig/Elbert Route PRN Reason Start Time Stop Time Status Last Admin Dose Admin Acetaminophen (Tylenol Tab) 650 mg Q4HP PRN PO PAIN OR FEVER 12/08/19 12:15 12/08/19 12:20 Albuterol Sulfate (Proventil Neb) 2.5 mg Q6HP PRN NEB SHORTNESS OF BREATH 12/06/19 06:45 Amiodarone HCl 150 mg/IV Miscellaneous Supplies 100 ml @ 600 mls/hr STAT STAT IV 12/06/19 04:44 12/06/19 04:51 DC Chlorhexidine Gluconate (Peridex Oral Rinse) SWAB/BRUSH ORAL CAVITY BID MT 12/06/19 09:00 12/08/19 09:15 DC 12/07/19 20:11 Doxycycline Hyclate (Vibramycin) 100 mg BID PO 12/08/19 09:00 12/14/19 08:59 12/08/19 12:44 Enoxaparin Sodium (Lovenox) 30 mg DAILY SC 12/06/19 09:00 12/07/19 08:10 Home Med (Med Rec Complete!) ASDIRECTED XX 12/06/19 06:15 12/06/19 06:13 DC Midazolam HCl (Versed) 2 mg Q15MP PRN IV AGITATION 12/06/19 06:45 12/08/19 09:15 DC 12/08/19 06:03 Midazolam HCl (Versed) 5 mg STAT STAT IV 12/06/19 06:10 12/06/19 06:11 DC 12/06/19 06:16 Midazolam HCl 100 mg/Dextrose 100 ml @ 2 mls/hr Q24H IV 12/07/19 14:00 12/08/19 09:15 DC 12/07/19 13:40 Morphine Sulfate (Morphine Sulfate Inj) 2 mg Q2H PRN IV PAIN 12/06/19 06:45 12/08/19 09:15 DC 12/07/19 12:04 Non-Formulary Medication (Refrigerator Schaeffer) Q1M PRN XX SEE LABEL COMMENTS 12/07/19 13:00 Pantoprazole Sodium (Protonix) 40 mg DAILY IV 12/06/19 09:00 12/07/19 08:09 Potassium Chloride 10 meq/ IV Miscellaneous Supplies 100 ml @ 100 mls/hr Q1H IV 12/07/19 14:00 12/07/19 15:59 DC 12/07/19 15:25 Potassium Chloride/Dextrose/ Sod Cl 1,000 ml @ 75 mls/hr [id number] IV 12/07/19 16:00 12/08/19 09:15 DC 12/08/19 03:59 Propofol 1000 mg/ IV Miscellaneous Supplies 100 ml @ 5.37 mls/hr [id number] IV 12/06/19 06:43 12/08/19 09:15 DC 12/08/19 07:13 Propofol 1000 mg/ IV Miscellaneous Supplies 100 ml @ 13.425 mls/ hr [id number] IV 12/06/19 04:00 12/06/19 06:50 DC 12/06/19 06:11 Sodium Chloride 1,000 ml @ 75 mls/hr [id number] IV 12/06/19 06:43 12/07/19 13:23 DC 12/07/19 08:10 No Active Prescriptions or Reported Meds Allergies Coded Allergies: Sulfa (Sulfonamide Antibiotics) (Verified Allergy, Unknown, 08/07/19) SAMMIE WARREN DO Dec 08, 2019 13:47
--- NOTE | 2019-12-08 19:26 | MHCRPDOC ---
[facility] Consultation Consultation DATE OF CONSULTATION: 12/08/19 Initial Evaluation Justin Miguel Age 34 Male Date of : 1985 Date of Service: 12/08/2019 Chief Complaint "I don't remember anything" History of Present Illness Justin Miguel is a 34-year-old man with altered mental status in the context of substance use. He had been in the ER the day before this current presentation, arriving via EMS on 12/05/19. He presented with paranoid and bizarre delusions at that time. He was making comments such as that he was an "alien". He was not admitted to the hospital at that time. His toxicology was positive for cannabis and amphetamines. He is positive for these substances in this current presentation as well. He presented again the following day (12/06/19). sr. social media & mobile manager assessment indicated that the patient was "approaching people on the street and asking them to shoot him." The [facility] mental health evaluation on 12/06/19 reports that the patient was "found in community to be acting bizarre and agitated". While in the ER, he was markedly agitated to the point of requiring intubation. There was some initial difficulty extubating him due to trying to hit others during extubation trials. He was eventually successfully extubated and was awake and alert. On evaluation, Justin said that he was unable to remember what had transpired before coming to the hospital. He initially stated that he has ADHD when he was told of the circumstances of his presentation to the ER, including his urine toxicology being positive for cannabis and amphetamines. He later said that someone must have laced his coffee. Wil denies SI and HI at this time. He denies perceptual abnormalities, but does endorse paranoid thoughts of "people out to get me". Past Psychiatry History No controlled substance prescriptions were found reviewing I-STOP (reference number [id number]). Patient denied ever being in psychiatric treatment. However, he had presented to [facility] outpatient clinic for substance counseling in 2010. No evidence of inpatient hospitalizations were found in the EMR or in [facility]. Past Medical History Denies medical conditions, current prescription medications, or known drug allergies. Family, Social History (PFSH) Endorses a pervasive history of family substance use. Reports that he had been released from halfway around a week ago. He states that he has been in halfway "more than half my life". He says that his family is in [place] and [place]. Review of Systems Depression: Denies depressed mood, SI, or HI. Anxiety: Screened negative. PTSD: Screened negative. Colleen: Screened negative BPD: Screened negative Psychosis: Denies AVH, endorses paranoid thoughts. Physical Exam Vitals: See below General appearance: Appears staged age with good hygiene and grooming; dressed in seasonally-appropriate attire Speech: Within normal limits for volumes and amount, decreased rate Thought process (logical vs. illogical or disorganized): logical Thought content: No SI/HI/AVH elicited. Paranoid thoughts present Affect: euthymic Mood: "I'm not homicidal or suicidal" Orientation: AOx3 Memory: retrieval memory 2/3 objects, encoding memory intact, long-term and short-term memory intact Attention/concentration: Unable to spell the word "house" backwards, but he is able to name or list the days of the week backwards Insight: Fair in that he recognizes that he needs treatments Judgment: Poor Data Medical Records/Labs/Diagnostic Tests Reviewed Medical Decision Making Assessment: Justin presents with delusional thinking in the context of amphetamine, cannabis, and possibly other undetectable substance use. His prior suicidal thoughts were in the context of intoxication, and he denies these thoughts at this time. However, he still has paranoia. He is agreeable to go to [facility] once medically stabilized for continued treatment of paranoia with outpatient referral for substance use treatment. Diagnoses: 1. substance/medication-induced psychotic disorder 2. stimulant (amphetamine) use disorder, severe 3. cannabis use disorder, unspecified 4. rule-out primary psychotic disorder Plan: Reassess paranoia once medically stabilized (has one more day of observation); if still present, admit to [facility] Consultation Time Spent: 70 minutes, with greater than 50% of time spent in counseling/coordination of care. Nick Sanchez MD Vital Signs Vital Signs Date Time Temp Pulse Resp B/P (MAP) Pulse Ox O2 Delivery O2 Flow Rate FiO2 12/08/19 16:28 100.6 12/08/19 12:00 89 143/81 (101) 96 Room Air 12/08/19 09:00 28 12/08/19 07:13 15 Laboratory Data 24H Labs Laboratory Tests 2 12/08/19 05:47: Immature Granulocyte % (Auto) 0.3, Neutrophils (%) (Auto) 83.1H, Lymphocytes (%) (Auto) 8.5L, Monocytes (%) (Auto) 7.2H, Eosinophils (%) (Auto) 0.6, Basophils (%) (Auto) 0.3, Neutrophils # (Auto) 5.7, Lymphocytes # (Auto) 0.6L, Monocytes # (Auto) 0.5, Eosinophils # (Auto) 0.0, Basophils # (Auto) 0.0, Nucleated Red Blood Cells % (auto) 0.0 12/08/19 07:35: Anion Gap 4L, Glomerular Filtration Rate > 60.0, Calcium Level 8.5, Phosphorus Level 2.7, Magnesium Level 1.9, Total Bilirubin 0.4, Aspartate Amino Transf (AST/SGOT) 20, Alanine Aminotransferase (ALT/SGPT) 16, Alkaline Phosphatase 42L, Lactate Dehydrogenase 197, Total Creatine Kinase 150, Total Protein 6.6, Albumin 3.2, Albumin/Globulin Ratio 0.94L, Triglycerides Level 159H, Cholesterol Level 153 Home Medications Current Medications Current Medications Medications (Trade) Dose Ordered Sig/Elbert Route PRN Reason Start Time Stop Time Status Last Admin Dose Admin Acetaminophen (Tylenol Tab) 650 mg Q4HP PRN PO PAIN OR FEVER 12/08/19 12:15 12/08/19 12:20 Albuterol Sulfate (Proventil Neb) 2.5 mg Q6HP PRN NEB SHORTNESS OF BREATH 12/06/19 06:45 Amiodarone HCl 150 mg/IV Miscellaneous Supplies 100 ml @ 600 mls/hr STAT STAT IV 12/06/19 04:44 12/06/19 04:51 DC Chlorhexidine Gluconate (Peridex Oral Rinse) SWAB/BRUSH ORAL CAVITY BID MT 12/06/19 09:00 12/08/19 09:15 DC 12/07/19 20:11 Doxycycline Hyclate (Vibramycin) 100 mg BID PO 12/08/19 09:00 12/14/19 08:59 12/08/19 12:44 Enoxaparin Sodium (Lovenox) 30 mg DAILY SC 12/06/19 09:00 12/07/19 08:10 Home Med (Med Rec Complete!) ASDIRECTED XX 12/06/19 06:15 12/06/19 06:13 DC Midazolam HCl (Versed) 2 mg Q15MP PRN IV AGITATION 12/06/19 06:45 12/08/19 09:15 DC 12/08/19 06:03 Midazolam HCl (Versed) 5 mg STAT STAT IV 12/06/19 06:10 12/06/19 06:11 DC 12/06/19 06:16 Midazolam HCl 100 mg/Dextrose 100 ml @ 2 mls/hr Q24H IV 12/07/19 14:00 12/08/19 09:15 DC 12/07/19 13:40 Morphine Sulfate (Morphine Sulfate Inj) 2 mg Q2H PRN IV PAIN 12/06/19 06:45 12/08/19 09:15 DC 12/07/19 12:04 Non-Formulary Medication (Refrigerator Schaeffer) Q1M PRN XX SEE LABEL COMMENTS 12/07/19 13:00 Pantoprazole Sodium (Protonix) 40 mg DAILY IV 12/06/19 09:00 12/07/19 08:09 Potassium Chloride 10 meq/ IV Miscellaneous Supplies 100 ml @ 100 mls/hr Q1H IV 12/07/19 14:00 12/07/19 15:59 DC 12/07/19 15:25 Potassium Chloride/Dextrose/ Sod Cl 1,000 ml @ 75 mls/hr [id number] IV 12/07/19 16:00 12/08/19 09:15 DC 12/08/19 03:59 Propofol 1000 mg/ IV Miscellaneous Supplies 100 ml @ 5.37 mls/hr [id number] IV 12/06/19 06:43 12/08/19 09:15 DC 12/08/19 07:13 Propofol 1000 mg/ IV Miscellaneous Supplies 100 ml @ 13.425 mls/ hr [id number] IV 12/06/19 04:00 12/06/19 06:50 DC 12/06/19 06:11 Sodium Chloride 1,000 ml @ 75 mls/hr [id number] IV 12/06/19 06:43 12/07/19 13:23 DC 12/07/19 08:10 No Active Prescriptions or Reported Meds Allergies Coded Allergies: Sulfa (Sulfonamide Antibiotics) (Verified Allergy, Unknown, 08/07/19) GME ATTESTATION GME ATTESTATION My faculty preceptor for this patient encounter was physically present during the encounter and was fully available. All aspects of the patient interview, examination, medical decision making process, and medical care plan development were reviewed and approved by the faculty preceptor. The faculty preceptor is aware and concurs with the plan as stated in the body of this note and will attest to such by his/her cosignature. NICK SANCHEZ MD Dec 08, 2019 19:26
[2019-12-08] MEDS: guaiFENesin ER 600 MG TAB PO SCH (21:25)
[2019-12-09 04:00] VITALS: BP 146/82
[2019-12-09 04:50] LABS: BASO % 0.5 % (0.0-1.0); EOS % 0.3 % (0.0-3.0); HEMATOCRIT 38.1 % (42.0-52.0); HEMOGLOBIN 13.2 g/dl (13.5-17.5); LYMPH # 0.9 10^3/uL (1.5-5.0); LYMPH % 10.6 % (24.0-44.0); MEAN CORPUSCULAR HGB CONC 34.6 g/dl (32.0-36.5); MEAN CORPUSCULAR VOLUME 92.3 fl (80.0-96.0); MONO # 0.8 10^3/uL (0.0-0.8); MONO % 8.6 % (0.0-5.0); NEUTROPHILS % 79.4 % (36.0-66.0); PLATELET COUNT, AUTOMATED 212 10^3/uL (150-450); RED BLOOD COUNT 4.13 10^6/uL (4.30-6.10); WHITE BLOOD COUNT 8.9 10^3/uL (4.0-10.0)
[2019-12-09 05:16] LABS: ALBUMIN 3.1 GM/DL (3.2-5.2); ALT/SGPT 21 U/L (12-78); BILIRUBIN,TOTAL 0.9 MG/DL (0.2-1.0); BLOOD UREA NITROGEN 5 MG/DL (7-18); CALCIUM LEVEL 8.5 MG/DL (8.5-10.1); CARBON DIOXIDE LEVEL 26 MEQ/L (21-32); CHLORIDE LEVEL 108 MEQ/L (98-107); CHOLESTEROL LEVEL 143 MG/DL (< 200); CPK CREATINE PHOSPHOKINASE 131 U/L (39-308); GLOMERULAR FILTRATION RATE > 60.0 (>60); GLUCOSE, FASTING 91 MG/DL (70-100); LDH LACTATE DEHYDROGENASE 172 U/L (87-241); MAGNESIUM LEVEL 1.8 MG/DL (1.8-2.4); PHOSPHORUS LEVEL 2.7 MG/DL (2.5-4.9); SODIUM LEVEL 140 MEQ/L (136-145); TOTAL PROTEIN 7.2 GM/DL (6.4-8.2); TRIGLYCERIDES LEVEL 85 MG/DL (<150)
[2019-12-09] MEDS ORDERED: POTASSIUM CHLORIDE 10 MEQ SR TABLET PO ONE (05:45)
[2019-12-09] MEDS ORDERED: KCL 10MEQ/100ML SWI (KRUN) 10 MEQ in IV 1 EA IV ONE (05:45)
--- NOTE | 2019-12-09 07:58 | REP ---
REASON: Followup. COMPARISON: Multiple, the latest a portable examination of 12/08/2019. The endotracheal tube and nasogastric tube have been removed. There is a subtle opacity in the left lower lobe. This potentially represents a change from the prior portable exam, which poorly evaluates retrocardiac opacities due to no lateral view. The pleural angles are sharp and the lung limon are otherwise clear. The osseous structures are within normal limits. IMPRESSION: Subtle finding of possible left retrocardiac opacity seen today and best on the lateral view. Subtle subsegmental atelectatic change versus subtle pneumonia. This should correlated clinically with appropriate followup. Electronically Signed by Joseph Sumner DO 12/09/2019 11:37 A
[2019-12-09 08:00] VITALS: BP 141/80
[2019-12-09] MEDS: PANTOPRAZOLE 40MG INJ (PROTONIX) (C9113) IV SCH (09:00)
[2019-12-09] MEDS: ENOXAPARIN 30 MG/0.3 ML SYR (J1650) SC SCH (09:00)
[2019-12-09] MEDS: guaiFENesin ER 600 MG TAB PO SCH (10:05)
[2019-12-09] MEDS: DOXYCYCLINE HYCLATE 100 MG TAB PO SCH (10:06)
--- NOTE | 2019-12-09 10:14 | MHIPNPDOC ---
[facility] Progress Note Progress Note DATE OF SERVICE: 12/09/19 HISTORY: . VITAL SIGNS: See below. NEW TEST RESULTS: . CURRENT MEDICATIONS: See below. MENTAL STATUS EXAMINATION: Patient is a -year old male, who is . Speech: Is . Language skills are . Thought processes including: . Thought content: . Abstract reasoning, and computation: . Description of associations: . Description of abnormal or psychotic thoughts: . Judgment: . Insight: [very limited, good, fair. poor]. Orientation: . Recent and remote memory: . Attention span and concentration: . Language: . Fund of knowledge: . Mood: . Affect: . DIAGNOSES: 1. . 2. . 3. . ASSESSMENT: MANAGEMENT PLAN: . TIME SPENT: minutes. Vital Signs Vital Signs Date Time Temp Pulse Resp B/P (MAP) Pulse Ox O2 Delivery O2 Flow Rate FiO2 12/09/19 08:00 99.1 90 20 141/80 (100) 95 Room Air 12/08/19 09:00 28 Laboratory Data 24H Labs Laboratory Tests 2 12/09/19 04:26: Immature Granulocyte % (Auto) 0.6, Neutrophils (%) (Auto) 79.4H, Lymphocytes (%) (Auto) 10.6L, Monocytes (%) (Auto) 8.6H, Eosinophils (%) (Auto) 0.3, Basophils (%) (Auto) 0.5, Neutrophils # (Auto) 7.0, Lymphocytes # (Auto) 0.9L, Monocytes # (Auto) 0.8, Eosinophils # (Auto) 0.0, Basophils # (Auto) 0.0, Nucleated Red Blood Cells % (auto) 0.0, Anion Gap 6L, Glomerular Filtration Rate > 60.0, Calcium Level 8.5, Phosphorus Level 2.7, Magnesium Level 1.8, Total Bilirubin 0.9#, Aspartate Amino Transf (AST/SGOT) 19, Alanine Aminotransferase (ALT/SGPT) 21, Alkaline Phosphatase 45, Lactate Dehydrogenase 172, Total Creatine Kinase 131, Total Protein 7.2, Albumin 3.1L, Albumin/Globulin Ratio 0.76L, Triglycerides Level 85, Cholesterol Level 143 CBC/BMP Laboratory Tests 12/09/19 04:26 Current Medications Current Medications Medications (Trade) Dose Ordered Sig/Elbert Route PRN Reason Start Time Stop Time Status Last Admin Dose Admin Acetaminophen (Tylenol Tab) 650 mg Q4HP PRN PO PAIN OR FEVER 12/08/19 12:15 12/08/19 12:20 Albuterol Sulfate (Proventil Neb) 2.5 mg Q6HP PRN NEB SHORTNESS OF BREATH 12/06/19 06:45 Amiodarone HCl 150 mg/IV Miscellaneous Supplies 100 ml @ 600 mls/hr STAT STAT IV 12/06/19 04:44 12/06/19 04:51 DC Chlorhexidine Gluconate (Peridex Oral Rinse) SWAB/BRUSH ORAL CAVITY BID MT 12/06/19 09:00 12/08/19 09:15 DC 12/07/19 20:11 Doxycycline Hyclate (Vibramycin) 100 mg BID PO 12/08/19 09:00 12/14/19 08:59 12/09/19 10:06 Enoxaparin Sodium (Lovenox) 30 mg DAILY SC 12/06/19 09:00 12/07/19 08:10 Guaifenesin (Mucinex Tab Er) 1,200 mg BID PO 12/08/19 21:00 12/09/19 10:05 Home Med (Med Rec Complete!) ASDIRECTED XX 12/06/19 06:15 12/06/19 06:13 DC Midazolam HCl (Versed) 2 mg Q15MP PRN IV AGITATION 12/06/19 06:45 12/08/19 09:15 DC 12/08/19 06:03 Midazolam HCl (Versed) 5 mg STAT STAT IV 12/06/19 06:10 12/06/19 06:11 DC 12/06/19 06:16 Midazolam HCl 100 mg/Dextrose 100 ml @ 2 mls/hr Q24H IV 12/07/19 14:00 12/08/19 09:15 DC 12/07/19 13:40 Morphine Sulfate (Morphine Sulfate Inj) 2 mg Q2H PRN IV PAIN 12/06/19 06:45 12/08/19 09:15 DC 12/07/19 12:04 Non-Formulary Medication (Refrigerator Schaeffer) Q1M PRN XX SEE LABEL COMMENTS 12/07/19 13:00 Pantoprazole Sodium (Protonix) 40 mg DAILY IV 12/06/19 09:00 12/07/19 08:09 Potassium Chloride 10 meq/ IV Miscellaneous Supplies 100 ml @ 100 mls/hr Q1H IV 12/07/19 14:00 12/07/19 15:59 DC 12/07/19 15:25 Potassium Chloride/Dextrose/ Sod Cl 1,000 ml @ 75 mls/hr [id number] IV 12/07/19 16:00 12/08/19 09:15 DC 12/08/19 03:59 Propofol 1000 mg/ IV Miscellaneous Supplies 100 ml @ 5.37 mls/hr [id number] IV 12/06/19 06:43 12/08/19 09:15 DC 12/08/19 07:13 Propofol 1000 mg/ IV Miscellaneous Supplies 100 ml @ 13.425 mls/ hr [id number] IV 12/06/19 04:00 12/06/19 06:50 DC 12/06/19 06:11 Sodium Chloride 1,000 ml @ 75 mls/hr [id number] IV 12/06/19 06:43 12/07/19 13:23 DC 12/07/19 08:10 Allergies Coded Allergies: Sulfa (Sulfonamide Antibiotics) (Verified Allergy, Unknown, 08/07/19) SAMMIE WARREN DO Dec 09, 2019 10:14
[2019-12-09] MEDS ORDERED: DOXY100T PO (10:34)
[2019-12-09] MEDS ORDERED: MUCI600T31 PO (10:34)
--- NOTE | 2019-12-09 13:01 | DSES ---
DATE OF ADMISSION: 12/06/2019 DATE OF DISCHARGE: 12/09/2019 DISCHARGE DIAGNOSES: 1. Acute respiratory failure secondary to sedation required because of significant agitation leading to mechanical ventilation. 2. Significant agitation felt secondary to amphetamine overdose with possible synthetic on board. 3. Psychosis. HOSPITAL COURSE: Mr. Miguel was brought to the emergency department on the morning of 12/06/2019 by the police in restraints after being found on the street apparently stating that he wanted someone to shoot him. In the emergency department, he was very agitated, swinging and spitting at healthcare providers. Because of his agitation, it was felt necessary for his safety to sedate him heavily, and that required intubation. Mr. Miguel continued to show some level agitation until the morning 12/08/2019. He was maxed out on propofol and also required a Versed drip and as needed Versed dosages. By the morning of 12/08/2019, his symptoms had resolved, and he was able to be successfully extubated. Additional difficulties that he had while intubated were hypertension possibly related to his overdose, and he appeared to respond appropriately to benzodiazepines. Not surprisingly, after extubation, he had a cough productive of a small amount of greenish sputum that has decreased over the past 24 hours. He also had fevers starting 12/08/2019 with a maximum temperature (Tmax) of 101.5. He was started on antibiotics. A chest x-ray was obtained which showed possibly a left retrocardiac infiltrate. His fever curve had improved, and that was not secondary to antipyretics. He was moving easily around his room and eating a regular diet, and he was felt medically cleared to be discharged to inpatient mental health unit (IM). DISCHARGE MEDICATIONS: - doxycycline 100 mg by mouth twice a day for a total 7 days - guaifenesin 1200 mg by mouth twice a day DISPOSITION: [facility]. edited: 12/10/2019 0721 tkleo RAMÍREZ
[2019-12-09 14:00] VITALS: BP 141/81
== END 2019-12-09 14:39 | DRG 812 ==
LOC: M ED 03:25 → M ED INP 06:32 → M ICU 08:10
PROVIDERS: ADMIT Internal Medicine Pulmonary Disease; ATTEND Internal Medicine Pulmonary Disease
PROC: 5A1945Z Respiratory Ventilation, 24-96 Consecutive Hours (ICD-10-PCS; principal; 2019-12-06)
PROC: 0BH17EZ Insertion of Endotracheal Airway into Trachea, Via Natural or Artificial Opening (ICD-10-PCS; 2019-12-06)
DX: T43.621A Poisoning by amphetamines, accidental (unintentional), initial encounter (principal); J96.00 Acute respiratory failure, unspecified whether with hypoxia or hypercapnia; F15.259 Other stimulant dependence with stimulant-induced psychotic disorder, unspecified; F15.229 Other stimulant dependence with intoxication, unspecified; I10 Essential (primary) hypertension; R45.1 Restlessness and agitation; Z65.2 Problems related to release from prison

== ENCOUNTER 2019-12-09 11:23 | Inpatient (IN) | payer MEDICAID ==
[~2019-12-09 11:23] MED LIST changes: +DOXY100T PO
[2019-12-09] MEDS ORDERED: ACETAMINOPHEN TAB 650MG DOSE (2X325MG) PO PRN (11:30)
[2019-12-09] MEDS ORDERED: MOM 30ML SUSPENSION UDC PO PRN (11:30)
[2019-12-09] MEDS ORDERED: MAALOX 30 ML SUSP *UDC PO PRN (11:30)
[2019-12-09] MEDS ORDERED: OLANZapine ORAL DISINTEGRATING TAB 5MG PO PRN (11:30)
[2019-12-09] MEDS ORDERED: ALBUTEROL SULFATE 2.5 MG/0.5 ML INH NEB SOLN NEB PRN (11:30)
[2019-12-09 15:30] VITALS: BP 140/88
--- NOTE | 2019-12-09 15:32 | IPN ---
DATE: 12/09/2019 NOTE: Mr. Miguel did well overnight. He still has an occasional cough and it can be productive of greenish sputum. This morning, he did not cough during our evaluation, he had small cough for nursing that produced a very tiny piece of mucus. He denies shortness of breath. No chest pain or pressure. He has had no nausea or emesis. He had a maximum temperature (t-max) of 100.8 at midnight. He has not taken any Tylenol since noon yesterday. He is very concerned with his cough. No other concerns expressed except that he stated that he wants to treat his drug usage and live in a nursing home house. There are times when he was not making sense in terms of the doctors he thought had visited him. He also mentioned being in detention and it should be known that this was in October. OBJECTIVE: PHYSICAL EXAMINATION General: Mr. Miguel is lying in bed in no acute distress. He can complete full sentences. No cough during our evaluation. Vital signs: Temperature 99.1, pulse 90, respiratory rate 20, blood pressure 141/80 with a MAP of 100, SPO2 95% on room air. Maximum temperature (t-max) 100.8. HEENT: Anicteric Lungs: Symmetric excursion, good air entry. No wheeze, rhonchi or crackle on tidal excursion. Normal I to E. No accessory muscle usage or retractions. Cardiovascular: Regular rate and rhythm with a normal S1, S2. No murmur, rub or gallop appreciated. Abdomen: Positive bowel sounds. Soft, nondistended, nontender. No hepatosplenomegaly or mass appreciated. Extremities: Warm and well-perfused, without clubbing, cyanosis or edema, palpable pedal pulses bilaterally. LABORATORY DATA: CBC from this morning showed a hemoglobin of 13.2, hematocrit 38.1, platelet count 212,000, white blood cell count 8900. Differential was 79% neutrophils, 11% lymphocytes, 9% monocytes. Chemistry shows sodium 140, potassium 3.0, chloride 108, bicarbonate 26, anion gap 6, BUN 5, creatinine 0.9, glucose 91, calcium 8.5, phosphorus 2.7, magnesium 1.8, total bilirubin 0.9, AST 19, ALT 21, alkaline phosphatase 45, LDH 172, CK 131, total protein 7.2, albumin 3.1. Yesterday's input and output showed 2583 in and 2200 out making him positive 383. Weight 92.1 kg. I reviewed his chest x-ray as well as report. X-ray showed normal-appearing cardiac silhouette and pulmonary vascular shadows. Normal-appearing mediastinal and hilar region. No consolidated region. There may be a retrocardiac infiltrate, though that cannot be definitively stated. Sputum culture from 12/06/2019 showed many WBCs, few gram-positive cocci and a few gram-negative rods. IMPRESSION: 1. Acute respiratory failure secondary to agitation requiring significant sedation that led to mechanical ventilation. Doing well post extubation yesterday. He has had no agitation since extubation. 2. Agitation felt secondary to drug use. 3. Known amphetamine abuse. 4. Hypertension. 5. Cough. Differential would include just clearing of his secretions that would be expected post mechanical ventilation, particularly when it required heavy sedation. A differential would also include bronchitis. There is a possible small retrocardiac infiltrate on chest x-ray from today. 6. Decreased potassium. RECOMMENDATIONS: 1. At this time, Mr. Miguel is doing well and I feel he is medically cleared to go to inpatient mental health unit. 2. Would recommend continuing doxycycline for a total of 7 days. 3. His potassium was replaced this morning and he is now eating regular diet. 4. He does not require a pulmonary follow up after discharge from inpatient mental health unit.
--- NOTE | 2019-12-09 15:57 | HPEPDOC ---
General Date of Admission Dec 09, 2019 at 14:40 Date of Service: Dec 09, 2019 Chief Complaint The patient is a 34-year-old male who was transferred to inpatient mental health after an inpatient stay for drug overdose History of Present Illness Patient is a 34-year-old male with no significant past medical history who was admitted to [facility] on 12/06/19 after he was found to be intoxicated with methamphetamine. In the emergency room, patient was agitated and combative. He was subsequently sedated and intubated. Patient was admitted to ICU under the care of the director of search engine optimization. Patient remained there and was ultimately extubated on 12/08/2019 and transferred to [facility] on 12/09/2019. It was noted the patient began to experience fevers throughout the inpatient hospitalization while in ICU. Patient was started on doxycycline for suspected upper respiratory tract infection. His blood cultures and urinalysis have all been negative. And x-ray on 12/09/2019 does reveal a questionable opacification that was noted retrocardiac. Patient was admitted to the inpatient mental health unit on 12/09/2019 and hospitalist service was consult for medical screening evaluation. Currently patient denies any chest pain, shortness of breath or palpitations. He does report a productive cough with yellowish sputum. Patient denies nausea, vomiting, abdominal pain, constipation, diarrhea, or urinary discomfort. Reports that his appetite is normal and denies any significant changes in his weight. Home Medications Scheduled Doxycycline Hyclate (Doxycycline Hyclate) 100 Mg Tablet, 100 MG PO BID Guaifenesin (Mucinex) 600 Mg Tab.er.12h, 1,200 MG PO BID Allergies Coded Allergies: Sulfa (Sulfonamide Antibiotics) (Verified Allergy, Unknown, 08/07/19) Past Medical History Medical History No significant past medical history Surgical History Patient has denied any prior surgeries Family History - No history of malignancies Social History - Denies the use of alcohol, reports that he smokes 2-3 cigarettes a day, reports that he uses illicit substances, most recent of which was methamphetamine - Denies recent travel or sick contacts - Lives with roommate Review of Systems Other systems 10 point review of systems complete, all negative otherwise stated in HPI Vital Signs - Vitals: BP 141/81, HR 80, RR 20, Sat 95%RA, Temp 98.4F - General: Lying in bed, No acute distress, Speaking in full sentences, AAOx3 - HEENT: NC, AT, PERRLA - CVS: RRR, +S1S2 - Lungs: Fair air entry bilaterally, No appreciable wheezing / rales / rhonchi - Abdomen: Soft, Non-distended, Non-tender - Extremities: No lower extremity edema, No calf tenderness - Neuro: No focal motor or sensory deficit - Skin: No visible rashes Plan / VTE VTE Prophylaxis Ordered?: Yes Plan Plan Fever / Productive cough - possibly 2/2 URTI / possibly 2/2 subtle retrocardiac PNA - Was transferred to inpatient mental health unit after requiring mechanical ventilation in the ICU for drug overdose - Currently patient reports a productive cough. He denies any shortness of breath - No fevers documented since arrival at [facility] - Saturations have been well at 95% on room air - Will continue with the doxycycline Drug overdose with methamphetamines - Patient has completed an inpatient course in the ICU - Was intubated on 12/05 and extubated on 12/07 Normocytic anemia - No evidence of bleeding - Hemoglobin appears to be stable over last reviewed hours DVT prophylaxis - Will start early ambulation Female district claims manager was present throughout the duration of this history and physical examination Thank you for this consultation; please reconsult as needed RABIA CLARKE MD Dec 09, 2019 15:57
[2019-12-09] MEDS: guaiFENesin ER 600 MG TAB PO SCH (21:00)
[2019-12-09] MEDS: DOXYCYCLINE HYCLATE 100MG TABLET PO SCH (21:00)
[2019-12-10 06:29] VITALS: BP 150/86
[2019-12-10] MEDS: DOXYCYCLINE HYCLATE 100MG TABLET PO SCH ×2 (10:24→21:34)
[2019-12-10] MEDS: guaiFENesin ER 600 MG TAB PO SCH ×2 (10:24→21:33)
[2019-12-10] MEDS ORDERED: OLANZapine ORAL DISINTEGRATING TAB 5MG PO ONE (10:30)
--- NOTE | 2019-12-10 14:45 | MHHPEPDOC ---
[facility] History & Physical History and Physical DATE OF ADMISSION: Dec 09, 2019 at 14:40 LEGAL STATUS AT ADMISSION: 9.39 Date of : 1985 Date of Service: 12/10/2019 Chief Complaint "I want to get help." History of Present Illness Justin Miguel is a 34-year-old man who presented sequentially on 12/04 and 12/05 for AMS in the setting of substance use. He was admitted to medicine due to intubation for agitation with subsequent difficulty in extubation. Once extubated, he continued to demonstrate paranoid delusions. He was medically- cleared for psychiatry, being managed with doxycycline for PNA. Today, staff note that Justin continues to demonstrate paranoia regarding things such as eating or taking medications. On evaluation, he reports improvement in paranoia, minimizing the reports from staff. Nonetheless, he was focused on receiving substance use treatment upon discharge. He endorsed Flakka use in addition to amphetamine and cannabis. He also agreed to begin olanzapine to treat his paranoid thoughts. Review of Systems 1. Constitutional: Denies fever and chills. 2. Eyes: negative. 3. Ears/Nose/Mouth/Throat: negative. 4. Cardiovascular: negative. 5. Respiratory: Positive for cough. 6. Gastrointestinal: negative. 7. Genitourinary: negative. 8. Muscular: negative. 9. Integumentary: negative. 10. Neurological: negative. 11. Endocrine: negative. 12. Hemotologic/Lymphatic: negative. 13. Allergies/Immune: negative. 14. Psychiatric: denies SI/HI/AVH. Endorses paranoia. Past History Self, family and social history reviewed. No change in all areas from consultation. Physical Exam Vitals: See below General appearance: Appears staged age with good hygiene and grooming; dressed in seasonally-appropriate attire Speech: Within normal limits for volumes and amount, decreased rate Thought process: linear Thought content: No SI/HI/AVH elicited. Paranoid thoughts present Affect: euthymic Mood: "better" Cognition: grossly intact Insight: [id number] Judgment: [id number] Data Medical Records/Labs/Diagnostic Tests Reviewed Medical Decision Making Assessment: Justin presents with delusional thinking in the context of amphetamine, cannabis, and possibly other undetectable substance use. He continues to have paranoia, though with less salience than before. He is agree able with outpatient referral for substance use treatment. Diagnoses: 1. substance/medication-induced psychotic disorder 2. stimulant (amphetamine) use disorder, severe 3. cannabis use disorder, unspecified 4. rule-out primary psychotic disorder Plan: continue doxycycline for PNA, start olanzapine ODT 5mg QHS The patient was informed of the possible side effects of antipsychotic medications, namely GI upset, weight gain, blood sugar and cholesterol problems, tremors and muscle stiffness and sexual dysfunction. They were additionally warned of rare complications of Tardive dyskinesia, and NMS especially in combination with other antipsychotics and prolonged use over time. They were advised that illegal drugs could effect their medications in unpredictable ways and could be potentially dangerous. Additionally, advised patient to report all natural supplements and herbs as they could also effect their medicine in atypical ways. Consultation Time Spent: 60 minutes, with greater than 50% of time spent in counseling/coordination of care. INITIAL TREATMENT PLAN: 1. Patient was admitted on a 9.39 2. Complete history was obtained. 3. With patients permission, family will be contacted and database will be expanded. 4. Patients medication regimen will be reviewed and changed accordingly. 5. Patient will be provided with protected environment. 6. Patient will be treated with individual, group, and milieu therapies. 7. Patient will receive supportive psych-education. 8. Discharge planning will commence immediately. 9. Outpatient follow-up treatment will be strongly recommended. 10. The initial treatment plan will focus initially on: * Depression. * Risk for suicide. * Substance abuse. ESTIMATED LENGTH OF STAY: 2-3 DAYS. Vital Signs Vital Signs Date Time Temp Pulse Resp B/P (MAP) Pulse Ox O2 Delivery O2 Flow Rate FiO2 12/10/19 06:29 98.9 78 14 150/86 (107) 97 Room Air Medications Scheduled Doxycycline Hyclate (Doxycycline Hyclate) 100 Mg Tablet, 100 MG PO BID Guaifenesin (Mucinex) 600 Mg Tab.er.12h, 1,200 MG PO BID Allergies Coded Allergies: Sulfa (Sulfonamide Antibiotics) (Verified Allergy, Unknown, 08/07/19) GME ATTESTATION GME ATTESTATION My faculty preceptor for this patient encounter was physically present during the encounter and was fully available. All aspects of the patient interview, examination, medical decision making process, and medical care plan development were reviewed and approved by the faculty preceptor. The faculty preceptor is aware and concurs with the plan as stated in the body of this note and will attest to such by his/her cosignature. HAYES CHILDRESS MD Dec 10, 2019 10:26
[2019-12-10 16:00] VITALS: BP 141/91
[2019-12-10] MEDS ORDERED: OLANZapine ORAL DISINTEGRATING TAB 5MG PO SCH (21:00)
[2019-12-11 06:28] VITALS: BP 132/88
[2019-12-11] MEDS: DOXYCYCLINE HYCLATE 100MG TABLET PO SCH (08:57)
[2019-12-11] MEDS: guaiFENesin ER 600 MG TAB PO SCH (08:57)
[2019-12-11] MEDS ORDERED: OLAN5ZYD PO (11:02)
[2019-12-11] MEDS ORDERED: DOXY100T PO (11:02)
--- NOTE | 2019-12-11 14:12 | MHDSPDOC ---
[facility] Discharge Summary Discharge Summary DATE OF ADMISSION: Dec 09, 2019 at 14:40 DATE OF DISCHARGE: 12/11/19 Reason for Admission Substance-induced psychosis. Discharge Diagnoses Substance/medication-induced psychotic disorder. Stimulant use disorder, severe. Treatment and progress on the unit: Justin was admitted on a 9.39 legal status. He was continued on doxycycline for pneumonia. Olanzapine was initiated for paranoid delusions in the setting of substance use. Justin endorsed subjective fever and chills, but his temperature remained afebrile. His blood pressure had also begun to stabilize and was in the prehypertensive range on the day of discharge. When Justin was initially admitted, he had refused medications and was suspicious with regards to eating. There was a noticeable improvement in these signs, and Justin also reported improvement in his thinking. He stated that he could still get somewhat suspicious, but he believed that it was at a level that was appropriate for outpatient follow up. He denied safety concerns going home. Discharge assessment: Justin denied SI/HI/AVH. He denied explicit paranoid thoughts, such as people trying to track him or harm him. He did endorse some subjective feeling of suspiciousness while on the unit, but he reported that these were not particularly distressing. He denied safety concerns. He was agreeable to arranging DSS housing if he decided not to stay with another friend (not the friend that he was doing drugs with). He was counseled on the need to take his prescriptions he would be sent home with, namely the doxycycline and olanzapine. He would then follow up with his primary care doctor that will be arranged for him. He was also counseled on the need to continue treatment with the olanzapine until outpatient follow-up so that his mental status could be reassessed at that time. On the day of discharge, the patient denied any further symptoms of depression, terrell, anxiety and psychosis, including changes in sleep, mood, anhedonia, fatigue, anxiety, active/passive SI, HI, AH, VH, and PI. Patient denied any side effects from medications, including CALVERT, n/v, rash, etc and stated that the medications had helped. Understanding was expressed of the risks and benefits. The patient at the time of discharge did not meet criteria for involuntary admission/extension due to having a normal mental status exam, fair insight into the situation, They are engaged in the discharge process, as well as being friendly and amenable in behavioral control and havent been engaging in any observed concerning behavior or ideation recently. They decline voluntary extension/admission at this time and must be discharged in good shania, as Im unable to make a case for holding the patient against their will. They may have historical risk factors of admissions and other interactions with psychiatry however, those are not modifiable from a clinical perspective. The patient will need to be discharged in good shania. Psychiatric Review of Systems Depression: negative Anxiety: negative Terrell: negative Psychosis: negative Physical Exam Vitals: See below General appearance: Appears staged age with good hygiene and grooming; dressed in seasonally-appropriate attire Speech: Within normal limits for volume, amount, and rate Thought process: linear Thought content: No SI/HI/AVH elicited. Paranoid thoughts present with improved saliency Affect: euthymic Mood: "good" Cognition: grossly intact Insight: fair Judgment: good Medical Review of Systems Constitutional: Negative Cardiovascular: Negative Respiratory: Negative Gastrointestinal: Negative Genitourinary: Negative Muscular: Negative Neurological: Negative Endocrine: Negative Allergies/Immune: Negative The amount of time spent in the coordination of care for this patient was approximately 30 minutes. Vital Signs/I&Os Vital Signs Date Time Temp Pulse Resp B/P (MAP) Pulse Ox O2 Delivery O2 Flow Rate FiO2 12/11/19 06:28 98.6 78 16 132/88 (103) 98 Room Air Medications Scheduled Doxycycline Hyclate (Doxycycline Hyclate) 100 Mg Tablet, 100 MG PO BID for infection for 4 Days, #14 Guaifenesin (Mucinex) 600 Mg Tab.er.12h, 1,200 MG PO BID, #10 Olanzapine (Olanzapine Odt) 5 Mg Tab.rapdis, 5 MG PO QHS for thought for 7 Days, #7 Allergies Coded Allergies: Sulfa (Sulfonamide Antibiotics) (Verified Allergy, Unknown, 08/07/19) GME ATTESTATION GME ATTESTATION My faculty preceptor for this patient encounter was physically present during the encounter and was fully available. All aspects of the patient interview, examination, medical decision making process, and medical care plan development were reviewed and approved by the faculty preceptor. The faculty preceptor is aware and concurs with the plan as stated in the body of this note and will attest to such by his/her cosignature. ATTENDING NOTE I agree with Dr. Sanchez's assessment and plan for discharge, my assessment as below The patient at the time of discharge did not meet criteria for involuntary admission/extension due to having a normal mental status exam, fair insight into the situation, They are engaged in the discharge process, as well as being friendly and amenable in behavioral control and havent been engaging in any observed concerning behavior or ideation recently. They decline voluntary extension/admission at this time and must be discharged in good shania, as Im unable to make a case for holding the patient against their will. They may have historical risk factors of admissions and other interactions with psychiatry however, those are not modifiable from a clinical perspective. The patient will need to be discharged in good shania. HAYES SANCHEZ MD Dec 11, 2019 11:07 SAMMIE WARREN DO Dec 11, 2019 16:08
[2019-12-12] MEDS ORDERED: OLAN5TAB PO (09:41)
== END 2019-12-11 13:04 | disposition home or self-care (01) | DRG 776 ==
LOC: M PSY 14:40 → EEVIPCON 14:40
PROVIDERS: ADMIT Psychiatry & Neurology Addiction Medicine; ATTEND Psychiatry & Neurology Addiction Medicine
DX: F19.94 Other psychoactive substance use, unspecified with psychoactive substance-induced mood disorder (principal); J18.9 Pneumonia, unspecified organism; F15.90 Other stimulant use, unspecified, uncomplicated; Z88.2 Allergy status to sulfonamides; Z79.899 Other long term (current) drug therapy; D64.9 Anemia, unspecified

== ENCOUNTER 2019-12-13 14:55 | Emergency (ER) | payer MEDICAID, OTHER ==
[~2019-12-13] VITALS: Ht 177.8 cm; Wt 90.9 kg
[~2019-12-13 14:55] MED LIST changes: +OLAN5TAB PO; +OLAN5ZYD PO
[2019-12-13] MEDS ORDERED: LORazepam 1 MG TAB PO STA (15:07)
[2019-12-13 15:23] LABS: HEMATOCRIT 41.7 % (42.0-52.0); HEMOGLOBIN 14.4 g/dl (13.5-17.5); MEAN CORPUSCULAR HEMOGLOBIN 31.7 pg (27.0-33.0); MEAN CORPUSCULAR HGB CONC 34.5 g/dl (32.0-36.5); MEAN CORPUSCULAR VOLUME 91.9 fl (80.0-96.0); PLATELET COUNT, AUTOMATED 353 10^3/uL (150-450); RED BLOOD COUNT 4.54 10^6/uL (4.30-6.10); WHITE BLOOD COUNT 6.7 10^3/uL (4.0-10.0)
[2019-12-13 15:58] LABS: AMPHETAMINES LEVEL URINE POSITIVE (NEGATIVE); BARBITURATES URINE NEGATIVE (NEGATIVE); BENZODIAZEPINES URINE NEGATIVE (NEGATIVE); CANNABINOIDS URINE POSITIVE (NEGATIVE); COCAINE METABOLITE URINE NEGATIVE (NEGATIVE); METHADONE URINE NEGATIVE (NEGATIVE); OPIATES URINE NEGATIVE (NEGATIVE); PHENCYCLIDINE URINE NEGATIVE (NEGATIVE)
[2019-12-13 16:14] LABS: ACETAMINOPHEN LEVEL < 2.0 UG/ML (10.0-30.0); ALT/SGPT 35 U/L (12-78); BILIRUBIN,DIRECT 0.2 MG/DL (0.0-0.2); BILIRUBIN,TOTAL 0.6 MG/DL (0.2-1.0); BLOOD UREA NITROGEN 14 MG/DL (7-18); CALCIUM LEVEL 9.1 MG/DL (8.5-10.1); CARBON DIOXIDE LEVEL 28 MEQ/L (21-32); CHLORIDE LEVEL 101 MEQ/L (98-107); CREATININE FOR GFR 1.04 MG/DL (0.70-1.30); ETHYL ALCOHOL (ETHANOL) < 0.003 % (0.000-0.010); GLOMERULAR FILTRATION RATE > 60.0 (>60); GLUCOSE, FASTING 97 MG/DL (70-100); POTASSIUM SERUM 4.1 MEQ/L (3.5-5.1); SALICYLATE LEVEL < 1.7 MG/DL (5.0-30.0); SODIUM LEVEL 137 MEQ/L (136-145); TOTAL PROTEIN 8.5 GM/DL (6.4-8.2)
[2019-12-13 17:31] VITALS: BP 158/90
--- NOTE | 2019-12-13 19:30 | ECGEPIP ---
[facility] - ED Test Date: 2019-12-13 Pat Name: JOÃO VILLA Department: Room: - Gender: Male Spud Driller: cherryian : 1985 Requested By: Romaine He Order Number: [id number] Reading MD: Catrachita Roldan Measurements Intervals Henderson Rate: 92 P: 57 MN: 178 QRS: 48 QRSD: 85 T: 14 QT: 343 QTc: 424 Interpretive Statements SINUS RHYTHM INCREASED RATE 12/06/19 Electronically Signed on 12-13-2019 19:29:46 EDT by Catrachita Roldan
== END 2019-12-13 17:55 | disposition home or self-care (01) ==
LOC: EDBD 14:55 → M ED 14:55
DX: F15.129 Other stimulant abuse with intoxication, unspecified (principal); Z88.1 Allergy status to other antibiotic agents; Z88.2 Allergy status to sulfonamides; F17.210 Nicotine dependence, cigarettes, uncomplicated
CPT/HCPCS: 36415; 80048; 80076; 80307; 84443; 85027; 93005; 99284; G0480

== ENCOUNTER 2019-12-14 20:31 | Emergency (ER) | payer MEDICAID ==
[~2019-12-14] VITALS: Ht 177.8 cm; Wt 90.9 kg
[2019-12-14 20:48] VITALS: BP 118/75
== END 2019-12-14 22:39 | disposition home or self-care (01) ==
LOC: M ED 20:31
DX: F15.10 Other stimulant abuse, uncomplicated (principal); Z59.5 Extreme poverty; Z88.1 Allergy status to other antibiotic agents; Z88.2 Allergy status to sulfonamides

== ENCOUNTER 2019-12-15 02:02 | Emergency (ER) | payer MEDICAID | END 2019-12-15 02:29 | disposition home or self-care (01) | LOC: M ED 02:02 | DX: Z60.9 Problem related to social environment, unspecified (principal); Z59.5 Extreme poverty; F19.10 Other psychoactive substance abuse, uncomplicated; Z79.899 Other long term (current) drug therapy; Z88.2 Allergy status to sulfonamides ==

== ENCOUNTER → 2019-12-24 | Outpatient (REF) | payer MEDICAID ==
[2019-12-24 18:57] LABS: BASO # 0.1 10^3/uL (0.0-0.2); BASO % 1.5 % (0.0-1.0); EOS % 0.7 % (0.0-3.0); HEMATOCRIT 41.1 % (42.0-52.0); HEMOGLOBIN 14.4 g/dl (13.5-17.5); LYMPH % 37.4 % (24.0-44.0); MEAN CORPUSCULAR HEMOGLOBIN 32.2 pg (27.0-33.0); MEAN CORPUSCULAR VOLUME 91.9 fl (80.0-96.0); MONO # 0.6 10^3/uL (0.0-0.8); MONO % 11.8 % (0.0-5.0); NEUTROPHILS # 2.6 10^3/uL (1.5-8.5); NEUTROPHILS % 48.4 % (36.0-66.0); PLATELET COUNT, AUTOMATED 424 10^3/uL (150-450); RED BLOOD COUNT 4.47 10^6/uL (4.30-6.10); WHITE BLOOD COUNT 5.4 10^3/uL (4.0-10.0)
[2019-12-24 19:14] LABS: ALBUMIN 4.2 GM/DL (3.2-5.2); ALT/SGPT 21 U/L (12-78); BILIRUBIN,TOTAL 0.6 MG/DL (0.2-1.0); BLOOD UREA NITROGEN 16 MG/DL (7-18); CALCIUM LEVEL 9.3 MG/DL (8.5-10.1); CARBON DIOXIDE LEVEL 28 MEQ/L (21-32); CHLORIDE LEVEL 100 MEQ/L (98-107); CHOLESTEROL LEVEL 201 MG/DL (<200); CHOLESTEROL RISK RATIO 2.392 (<5); CREATININE FOR GFR 1.12 MG/DL (0.70-1.30); GLOMERULAR FILTRATION RATE > 60.0 (>60); GLUCOSE, FASTING 106 MG/DL (70-100); HDL CHOLESTEROL 84 MG/DL (>40); HEMOGLOBIN A1c 5.7 %; LDL CHOLESTEROL 108 MG/DL (<100); NON-HDL-C 117 MG/DL; SODIUM LEVEL 134 MEQ/L (136-145); THYROID STIMULATING HORMONE 0.717 uIU/ML (0.358-3.740); TOTAL 25(OH) VITAMIN D 15.7 NG/ML (30.0-100.0); TOTAL PROTEIN 8.2 GM/DL (6.4-8.2); TRIGLYCERIDES LEVEL 46 MG/DL (<150)
== END ==
LOC: M LAB REF 18:42
PROVIDERS: ATTEND Nurse Practitioner Family
DX: F12.10 Cannabis abuse, uncomplicated (principal); F41.1 Generalized anxiety disorder; K02.9 Dental caries, unspecified

== ENCOUNTER 2020-01-29 19:51 | Inpatient (IN) | payer MEDICAID ==
[~2020-01-29] VITALS: Ht 160 cm; Wt 82.0 kg
[2020-01-29 20:33] LABS: HEMATOCRIT 41.3 % (42.0-52.0); HEMOGLOBIN 14.1 g/dl (13.5-17.5); MEAN CORPUSCULAR HEMOGLOBIN 31.1 pg (27.0-33.0); MEAN CORPUSCULAR HGB CONC 34.1 g/dl (32.0-36.5); PLATELET COUNT, AUTOMATED 297 10^3/uL (150-450); RED BLOOD COUNT 4.54 10^6/uL (4.30-6.10); WHITE BLOOD COUNT 6.6 10^3/uL (4.0-10.0)
[2020-01-29 21:03] LABS: AMPHETAMINES LEVEL URINE NEGATIVE (NEGATIVE); BARBITURATES URINE NEGATIVE (NEGATIVE); BENZODIAZEPINES URINE NEGATIVE (NEGATIVE); CANNABINOIDS URINE POSITIVE (NEGATIVE); COCAINE METABOLITE URINE NEGATIVE (NEGATIVE); METHADONE URINE NEGATIVE (NEGATIVE); OPIATES URINE NEGATIVE (NEGATIVE); PHENCYCLIDINE URINE NEGATIVE (NEGATIVE)
[2020-01-29 21:09] LABS: ACETAMINOPHEN LEVEL < 2.0 UG/ML (10.0-30.0); ALBUMIN 4.3 GM/DL (3.2-5.2); ALT/SGPT 26 U/L (12-78); BILIRUBIN,DIRECT 0.3 MG/DL (0.0-0.2); BILIRUBIN,TOTAL 1.1 MG/DL (0.2-1.0); BLOOD UREA NITROGEN 25 MG/DL (7-18); CALCIUM LEVEL 9.4 MG/DL (8.5-10.1); CARBON DIOXIDE LEVEL 26 MEQ/L (21-32); CHLORIDE LEVEL 105 MEQ/L (98-107); CREATININE FOR GFR 1.18 MG/DL (0.70-1.30); ETHYL ALCOHOL (ETHANOL) < 0.003 % (0.000-0.010); GLOMERULAR FILTRATION RATE > 60.0 (>60); GLUCOSE, FASTING 107 MG/DL (70-100); SALICYLATE LEVEL < 1.7 MG/DL (5.0-30.0); SODIUM LEVEL 139 MEQ/L (136-145); THYROID STIMULATING HORMONE 0.908 uIU/ML (0.358-3.740)
[2020-01-29] MEDS ORDERED: MOM 30ML SUSPENSION UDC PO PRN (23:15)
[2020-01-29] MEDS ORDERED: ACETAMINOPHEN TAB 650MG DOSE (2X325MG) PO PRN (23:15)
[2020-01-29] MEDS ORDERED: MAALOX 30 ML SUSP *UDC PO PRN (23:15)
[2020-01-29] MEDS ORDERED: OLANZapine ORAL DISINTEGRATING TAB 5MG PO PRN (23:15)
[2020-01-29] MEDS ORDERED: traZODone 50 MG TAB PO PRN (23:15)
[2020-01-30 01:30] VITALS: BP 118/76
--- NOTE | 2020-01-30 09:36 | MHHPEPDOC ---
General Date Of Admission: January 29, 2020 Legal Status: 9.39 Chief Complaint "Your trying to alter my thoughts" History of Present Illness HISTORY OF THE PRESENT ILLNESS: Patient is a 34 -year-old , male, who Presents to [facility] after becoming bizarre and delusional. He had attempted to hand a merchant police a bag of powder claiming it was fentanyl. He was brought in and admitted as he was quite psychotic. In the patient was met with the interview was wholly unproductive, as he was so paranoid and agitated that he nearly needed to be sedated in order to be removed from the room. He is extraordinarily psychotic talking about bizarre delusions and conspiracy theories. Information is taken from previous chart. Psychiatric Review of Systems Colleen (4 or more days of): expansive mood, grandiosity, decreased need for sleep Psychosis: delusions, paranoia, disorganization Past Psychiatric History Previous Psychiatric Diagnosis: substance abuse psychosis. Previous Psychiatric Admissions: multiple previous admissions. Suicide Attempts: unknown. Psychiatric Follow-up: none. Psychiatric medications: none. Past Medical History Medical Problems Noncontributory Family Medical/Psychiatric HX Medical Problems Unknown at this time Addiction History amphetamines, methamphetamines Social History Current Living Situation: lives with mother. Education: high school. Employment: unemployed. Social Support: unknown. Legal: unknown. Marital: unknown. Mental Status Examination General Appearance: disheveled Build: average Demeanor: hostile Eye Contact: intense Activity: agitated Behavior: aggressive Speech: pressured Mood: angry Affect: labile Thought Process: incoherent Thought Content (Delusions): grandiose, persecutory, bizarre, paranoia Thought Content (Other): preoccupied Insight: improving Psychosis: Psychotic Perceptions A-FIB/CHADSVASC A-FIB History Current/History of A-Fib/PAF?: No Assessment 34-year-old man with history of psychotic episodes related to substance use presents horribly psychotic, he will likely need to be treated as he is highly distorted Problem List Problems: (1) Psychosis Status: Acute Response to Treatment: Uncontrolled Problem Text: Will offer Zyprexa 5 mg nightly (2) Amphetamine abuse Status: Chronic Problem Text: Referral to outpatient substance abuse once stable (3) Cannabis abuse Status: Chronic Problem Text: Referral to outpatient substance abuse once stable Initial Treatment Plan 1. Patient was admitted on a [9.39] status. 2. Complete history was obtained. 3. With patients permission, family will be contacted and database will be expanded. 4. Patients medication regimen will be reviewed and changed accordingly. 5. Patient will be provided with protected environment. 6. Patient will be treated with individual, group, and milieu therapies. 7. Patient will receive supportive psych-education. 8. Discharge planning will commence immediately. 9. Outpatient follow-up treatment will be strongly recommended. 10. The initial treatment plan will focus initially on: * altered thoughts ESTIMATED LENGTH OF STAY: 4-5 DAYS. TIME SPENT COUNSELING AND COORDINATING INITIAL CARE:70 minutes. Vital Signs Vital Signs Date Time Temp Pulse Resp B/P (MAP) Pulse Ox O2 Delivery O2 Flow Rate FiO2 01/30/20 01:30 96.9 77 16 118/76 (90) 91 Room Air Laboratory Data 24H Labs Laboratory Tests 2 01/29/20 20:11: Nucleated Red Blood Cells % (auto) 0.0, Anion Gap 8, Glomerular Filtration Rate > 60.0, Calcium Level 9.4, Total Bilirubin 1.1H, Direct Bilirubin 0.3H, Aspartate Amino Transf (AST/SGOT) 22, Alanine Aminotransferase (ALT/SGPT) 26, Alkaline Phosphatase 41L, Total Protein 8.0, Albumin 4.3, Albumin/Globulin Ratio 1.2, Thyroid Stimulating Hormone (TSH) 0.908, Salicylates Level < 1.7L, Urine Opiates Screen NEGATIVE, Urine Methadone Screen NEGATIVE, Acetaminophen Level < 2.0L, Urine Barbiturates Screen NEGATIVE, Urine Phencyclidine Screen NEGATIVE, Urine Amphetamines Screen NEGATIVE, Urine Benzodiazepines Screen NEGATIVE, Urine Cocaine Metabolite Screen NEGATIVE, Urine Cannabinoids Screen POSITIVEH, Ethyl Alcohol Level < 0.003 CBC/BMP Laboratory Tests 01/29/20 20:11 Medications Unable to Obtain Active Prescriptions or Reported Meds Allergies Coded Allergies: Sulfa (Sulfonamide Antibiotics) (Verified Allergy, Unknown, 08/07/19) SAMMIE WARREN DO January 30, 2020 09:36
[2020-01-30] MEDS ORDERED: LORazepam 2 MG TAB PO STA (13:33)
--- NOTE | 2020-01-30 13:44 | HPEPDOC ---
[facility] Medical History & Physical Date of Admission January 30, 2020 Date of Service: January 30, 2020 Attending Physician: SCOTT CORTEZ MD History and Physical CHIEF COMPLAINT: Psychosis HISTORY OF PRESENT ILLNESS: 34-year-old M who was recently admitted to [facility] substance induced psychosis (met hamphetamine) in 12/2019 requiring intubation and later discharge to the [facility], with no other significant past medical history for whom hospitalist service is consulted for medical screening evaluation. He is currently agitated and has security present and uncooperative. Briefly this encounter began with the patient approaching police and handing them a substance that he asked them to test it for fentanyl and then went on asking them to kill him. He was brought to the ED where he was paranoid and refusing care citing that people were trying to harm him. CBC, BMP were wnl and tox screen was positive for marijuana. He is now admitted to the [facility] where he is actively agitated and psychotic, at times speaking to himself. Past Medical History No significant past medical history Surgical History No note prior surgeries in [facility] records, and patient currently not cooperative Family History - No history of malignancies per EMR Social History per EMR - Denies the use of alcohol, smokes cigarettes, noted history of prior methamphetamine and currently positive for marijuana Review of Systems: could not complete given agitation Vital Signs - Vitals: HDS, afebrile - General: Standing up, breathing comfortably - HEENT: NCAT, EOMI, MMM - CVS: not examined due to agitation - Lungs: breathing comfortably on room air, speaking in full sentences - Abdomen: non distended. - Extremities: No lower extremity edema - Neuro: No focal motor or sensory deficit from observation, no droops, asymmetry, normal gait - Skin: No visible rashes Assessment: 34 yo M with a history of PSUD who presents with likely substance induced psychosis with agitation. Plan Psychosis with agitation: likely 2/2 substances with tox screen positive for marijuana -plan per primary psych team Thank you for this consultation; please reconsult as needed Vital Signs Vital Signs Date Time Temp Pulse Resp B/P (MAP) Pulse Ox O2 Delivery O2 Flow Rate FiO2 01/30/20 01:30 96.9 77 16 118/76 (90) 91 Room Air Laboratory Data Labs 24H Laboratory Tests 2 01/29/20 20:11: Nucleated Red Blood Cells % (auto) 0.0, Anion Gap 8, Glomerular Filtration Rate > 60.0, Calcium Level 9.4, Total Bilirubin 1.1H, Direct Bilirubin 0.3H, Aspartate Amino Transf (AST/SGOT) 22, Alanine Aminotransferase (ALT/SGPT) 26, Alkaline Phosphatase 41L, Total Protein 8.0, Albumin 4.3, Albumin/Globulin Ratio 1.2, Thyroid Stimulating Hormone (TSH) 0.908, Salicylates Level < 1.7L, Urine Opiates Screen NEGATIVE, Urine Methadone Screen NEGATIVE, Acetaminophen Level < 2.0L, Urine Barbiturates Screen NEGATIVE, Urine Phencyclidine Screen NEGATIVE, U rine Amphetamines Screen NEGATIVE, Urine Benzodiazepines Screen NEGATIVE, Urine Cocaine Metabolite Screen NEGATIVE, Urine Cannabinoids Screen POSITIVEH, Ethyl Alcohol Level < 0.003 CBC/BMP Laboratory Tests 01/29/20 20:11 Home Medications Unable to Obtain Active Prescriptions or Reported Meds Allergies Coded Allergies: Sulfa (Sulfonamide Antibiotics) (Verified Allergy, Unknown, 08/07/19) A-FIB/CHADSVASC A-FIB History Current/History of A-Fib/PAF?: No Current PO Anticoag Therapy: No Age/Risk Factor Scoring CHADSVASC: CHADSVASC Response (Comments) Value Age Risk Factor Age < 65 years old 0 Gender Risk Factor Male 0 Hx of CHF No 0 Hx of HTN No 0 Hx of Stroke/TIA/or VTE No 0 Hx of Diabetes No 0 Hx of Vascular Disease No 0 Total 0 Treatment Treatment ordered: NONE Reason Anticoagulant not given: Not indicated/[id number] SCOTT CORTEZ MD January 30, 2020 13:44
[2020-01-30] MEDS ORDERED: diphenhydrAMINE 50MG CAP PO ONE (13:45)
[2020-01-30 17:07] VITALS: BP 161/95
[2020-01-30] MEDS: OLANZapine ORAL DISINTEGRATING TAB 5MG PO SCH (20:14)
[2020-01-31 06:05] VITALS: BP 144/82
[2020-01-31] MEDS: OLANZapine ORAL DISINTEGRATING TAB 5MG PO SCH (20:28)
[2020-02-01 16:42] VITALS: BP 139/85
[2020-02-01] MEDS: OLANZapine ORAL DISINTEGRATING TAB 5MG PO SCH ×2 (20:55→21:00)
[2020-02-02 06:33] VITALS: BP 116/66
--- NOTE | 2020-02-02 08:37 | MHIPN ---
DATE: 01/31/2020 This is a video assessment that is being done because of the virus pandemic, he is aware of it. CHIEF COMPLAINT: Feels upset. SUBJECTIVE: Seen for followup in the presence of staff. He is upset, says he is incarcerated, wishes to leave, but then unable to engage in a conversation as he gets quite irritated, agitated, verbally so, and later somewhat physically, with staff, also asking to leave. MENTAL STATUS EXAMINATION: He is lying in bed. He is easily irritated. Speech somewhat rapid, tangential, labile affect. Denies suicidal thoughts or intents. Denies any overt thoughts of harming anyone else. He is deluded. No fluctuation of consciousness. Does not appear to be internally preoccupied. Judgment and insight remain quite compromised. ASSESSMENT: Psychotic disorder, not otherwise specified. Rule out substance induced psychosis. Given past history, it is quite possible that the current state is not wholly the result of substance abuse. PLAN: Continue current care, observations, precautions. He has been offered olanzapine 5 mg at night, has refused it. He displays quite poor judgment and insight. Will continue with current observations. VITAL SIGNS: Blood pressure 144/82, pulse 68, temperature 98.1.
--- NOTE | 2020-02-02 10:04 | MHDSPDOC ---
[facility] Discharge Summary Discharge Summary DATE OF ADMISSION: January 30, 2020 at 01:20 DATE OF DISCHARGE: Feb 02, 2020 at 13:00 DISCHARGE DIAGNOSES: 1. Unspecified psychotic disorder/likely substance induced. 2. Methamphetamine use disorder, severe. REASON FOR ADMISSION: 34-year-old well-known individual presents psychotic distorted after likely using synthetics CONSULTANTS INVOLVED: none TREATMENT AND PROGRESS ON THE UNIT : patient was admitted to the inpatient unit where he was notably agitated, as would be expected with stimulant/synthetic intoxication. He was offered Zyprexa but she generally refused and required as needed medication in order to calm down. The patient eventually start taking the Zyprexa and calmed down significantly and resolved down to a normal mental status exam where he was pleasant and engaged. DISCHARGE ASSESSMENT: 34-year-old man with a notable substance use problem presents after likely becoming intoxicated on synthetics, he resolves with the tincture of time in addition to a very small dose of Zyprexa. he patient at the time of discharge did not meet criteria for involuntary admission/extension due to having a normal mental status exam, fair insight into the situation, They are engaged in the discharge process, as well as being friendly and amenable in behavioral control and havent been engaging in any observed concerning behavior or ideation recently. They decline voluntary extension/admission at this time and must be discharged in good shania, as Im unable to make a case for holding the patient against their will. They may have historical risk factors of admissions and other interactions with psychiatry however, those are not modifiable from a clinical perspective. The patient will need to be discharged in good shania. MENTAL STATUS EXAMINATION ON DISCHARGE: General: Well dressed with good hygiene Speech: Spontaneous and fluid Thought processes: Linear and logical Thought content: Future orientated Abstract reasoning, and computation: Intact Description of associations: Intact Description of abnormal or psychotic thoughts:Denies any suicidal or homicidal ideation. Denies any auditory or visual hallucinations. Does not appear to be responding to internal stimuli. Does not appear to be endorsing any bizarre or paranoid ideation. Judgment: fair Insight: fair Orientation: Alert and orientated 3 Recent and remote memory: Intact Attention span and concentration: Intact Fund of knowledge: Adequate Mood: "okay" Affect: Euthymic with a full range PLAN/FOLLOWUP ARRANGEMENTS: follow-up appointments made. The amount of time spent in the coordination of care for this patient was approximately 45 minutes. Vital Signs/I&Os Vital Signs Date Time Temp Pulse Resp B/P (MAP) Pulse Ox O2 Delivery O2 Flow Rate FiO2 02/02/20 06:33 97.6 53 14 116/66 (83) 96 Room Air Medications Scheduled Olanzapine (Zyprexa) 5 Mg Tablet, 1 TAB PO QPM for mood for 7 Days, #7 Allergies Coded Allergies: Sulfa (Sulfonamide Antibiotics) (Verified Allergy, Unknown, 08/07/19) SAMMIE WARREN DO Feb 02, 2020 10:04
[2020-02-02] MEDS ORDERED: ZYPR5TAB2 PO (10:23)
--- NOTE | 2020-02-02 13:53 | MHIPN ---
DATE OF SERVICE: 02/01/2020 VITAL SIGNS: Blood pressure 139/85, pulse 83, temperature 98.7. CHIEF COMPLAINT: Says feels okay. SUBJECTIVE: He is seen for followup in the presence of staff. This is a telemedicine video assessment. The patient is aware of this. He says he has been doing okay and apologized for his being upset yesterday. He says he was going through a lot. I informed him that an apology is not necessary but appreciated. Acknowledges he had been going through quite a bit. Says had been using marijuana but that his drug of choice is methamphetamines. Denies he was using any prior to coming in. Says the last time he did any was just before last admission. This was in December. He suggests slept okay. MENTAL STATUS EXAMINATION: Fair hygiene. Cooperative but is a bit guarded. Less irritable. No psychomotor retardation. Coherent for the most part. Somewhat tangential at times. Denies any suicidal thoughts or intents. No evidence of any thoughts of harming anyone else. No overt delusions elicited. Judgment and insight remain compromised. 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 Consider substance-induced psychosis. Cannabis use disorder. Amphetamine use disorder. PLAN: Continue current care. Continue offering antipsychotic, in this case olanzapine, which he has continued to refuse, and says he is not interested in taking medicines. 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 We will continue to offer him olanzapine. He will see the assigned psychiatrist tomorrow, and further recommendations will be made, including the discharge planning and followup will be important.
== END 2020-02-02 13:00 | disposition home or self-care (01) | DRG 776 ==
LOC: M ED 19:51 → M PSY 01-30 01:20
PROVIDERS: ADMIT Psychiatry & Neurology Psychiatry; ATTEND Psychiatry & Neurology Addiction Medicine
DX: F19.94 Other psychoactive substance use, unspecified with psychoactive substance-induced mood disorder (principal); F17.210 Nicotine dependence, cigarettes, uncomplicated; F15.90 Other stimulant use, unspecified, uncomplicated

== ENCOUNTER 2020-02-10 17:48 | Inpatient (IN) | payer MEDICAID ==
[~2020-02-10] VITALS: Ht 177.8 cm; Wt 86.1 kg
[~2020-02-10 17:48] MED LIST changes: +ZYPR5TAB2 PO
[2020-02-10] MEDS ORDERED: LORazepam 2 MG TAB PO ONE (18:00)
[2020-02-10] MEDS ORDERED: OLANZapine ORAL DISINTEGRATING TAB 5MG PO ONE (18:00)
[2020-02-10 18:58] LABS: HEMATOCRIT 37.8 % (42.0-52.0); HEMOGLOBIN 13.1 g/dl (13.5-17.5); MEAN CORPUSCULAR HEMOGLOBIN 31.4 pg (27.0-33.0); MEAN CORPUSCULAR HGB CONC 34.7 g/dl (32.0-36.5); MEAN CORPUSCULAR VOLUME 90.6 fl (80.0-96.0); PLATELET COUNT, AUTOMATED 238 10^3/uL (150-450); RED BLOOD COUNT 4.17 10^6/uL (4.30-6.10); WHITE BLOOD COUNT 5.8 10^3/uL (4.0-10.0)
[2020-02-10 19:27] LABS: AMPHETAMINES LEVEL URINE NEGATIVE (NEGATIVE); BARBITURATES URINE NEGATIVE (NEGATIVE); BENZODIAZEPINES URINE NEGATIVE (NEGATIVE); CANNABINOIDS URINE POSITIVE (NEGATIVE); COCAINE METABOLITE URINE NEGATIVE (NEGATIVE); METHADONE URINE NEGATIVE (NEGATIVE); OPIATES URINE NEGATIVE (NEGATIVE); PHENCYCLIDINE URINE NEGATIVE (NEGATIVE)
[2020-02-10 19:34] LABS: ACETAMINOPHEN LEVEL < 2.0 UG/ML (10.0-30.0); ALBUMIN 4.2 GM/DL (3.2-5.2); ALT/SGPT 23 U/L (12-78); BILIRUBIN,DIRECT 0.2 MG/DL (0.0-0.2); BILIRUBIN,TOTAL 0.8 MG/DL (0.2-1.0); BLOOD UREA NITROGEN 10 MG/DL (7-18); CALCIUM LEVEL 9.1 MG/DL (8.5-10.1); CARBON DIOXIDE LEVEL 28 MEQ/L (21-32); CHLORIDE LEVEL 106 MEQ/L (98-107); CREATININE FOR GFR 0.98 MG/DL (0.70-1.30); ETHYL ALCOHOL (ETHANOL) < 0.003 % (0.000-0.010); GLOMERULAR FILTRATION RATE > 60.0 (>60); GLUCOSE, FASTING 97 MG/DL (70-100); POTASSIUM SERUM 3.5 MEQ/L (3.5-5.1); SALICYLATE LEVEL < 1.7 MG/DL (5.0-30.0); SODIUM LEVEL 139 MEQ/L (136-145); THYROID STIMULATING HORMONE 0.463 uIU/ML (0.358-3.740); TOTAL PROTEIN 7.5 GM/DL (6.4-8.2)
[2020-02-11] MEDS ORDERED: NEOSPORIN OINT 0.9 GM PKT TOP ONE (14:30)
[2020-02-11 16:11] LABS: CPK CREATINE PHOSPHOKINASE 224 U/L (39-308)
[2020-02-11] MEDS ORDERED: ACETAMINOPHEN TAB 650MG DOSE (2X325MG) PO PRN (16:45)
[2020-02-11] MEDS ORDERED: IBUPROFEN 400 MG TAB PO PRN (16:45)
[2020-02-11 20:30] VITALS: BP 133/90
[2020-02-11] MEDS: OLANZapine ORAL DISINTEGRATING TAB 5MG PO PRN (21:05)
[2020-02-12 06:37] VITALS: BP 138/97
--- NOTE | 2020-02-12 15:47 | MHHPEPDOC ---
[facility] History & Physical History and Physical DATE OF ADMISSION: Feb 11, 2020 at 16:34 THE PATIENT REFUSED TO MEET WITH ME, I COULDN'T ASSESS HIM TIME SPENT COUNSELING AND COORDINATING INITIAL CARE: 0 minutes. Vital Signs Vital Signs Date Time Temp Pulse Resp B/P (MAP) Pulse Ox O2 Delivery O2 Flow Rate FiO2 02/12/20 06:37 97.2 53 14 138/97 (111) 100 Room Air Medications No Active Prescriptions or Reported Meds Allergies Coded Allergies: Sulfa (Sulfonamide Antibiotics) (Verified Allergy, Unknown, 08/07/19) A-FIB/CHADSVASC A-FIB History Current/History of A-Fib/PAF?: No Current PO Anticoag Therapy: No Age/Risk Factor Scoring CHADSVASC: CHADSVASC Response (Comments) Value Age Risk Factor Age < 65 years old 0 Gender Risk Factor Male 0 Hx of CHF No 0 Hx of HTN No 0 Hx of Stroke/TIA/or VTE No 0 Hx of Diabetes No 0 Hx of Vascular Disease No 0 Total 0 Treatment Treatment ordered: NONE Reason Anticoagulant not given: Not indicated/[id number] JULIANNA OROZCO MD Feb 12, 2020 15:47
[2020-02-12 17:54] VITALS: BP 144/77
[2020-02-13 06:48] VITALS: BP 134/100
[2020-02-13] MEDS: OLANZapine ORAL DISINTEGRATING TAB 5MG PO SCH ×2 (09:00→20:26)
--- NOTE | 2020-02-13 09:23 | MHIPNPDOC ---
[facility] Progress Note Progress Note DOS: 02/13/2020 Patient met with today with nurse present for telehealth evaluation due to COVID Crisis Events Overnight:[none] Group Attendance:: none Symptom changes (psych ROS): Affective: unable to determine Psychotic: bizarre or paranoid Anxiety: none. Notable Staff Report: bizarre and paranoid her staff Medical ROS: complaints of scratch MSE: Vitals: Below General: poor Speech: rapid Thought processes: tangential Thought content: psychotic delusions Abstract reasoning, and computation: impaired Description of associations: imparied Description of abnormal or psychotic thoughts:Unclear, appears to have psychotic processes going on. Judgment: poor Insight: poor Orientation: Alert and orientated 3 Recent and remote memory: Intact Attention span and concentration: impaired secondary to thought process Fund of knowledge: unable to determine Mood: "my skin" Affect: flat, little reactivity Vital Signs Vital Signs Date Time Temp Pulse Resp B/P (MAP) Pulse Ox O2 Delivery O2 Flow Rate FiO2 02/13/20 06:48 97.7 63 16 134/100 (111) 99 Room Air Current Medications Current Medications Medications (Trade) Dose Ordered Sig/Elbert Route PRN Reason Start Time Stop Time Status Last Admin Dose Admin Acetaminophen (Tylenol Tab) 650 mg Q6HP PRN PO HEADACHE or DISCOMFORT 02/11/20 16:45 Home Med (Med Rec Complete!) ASDIRECTED XX 02/11/20 14:30 02/11/20 14:27 DC Ibuprofen (Advil) 400 mg Q6HP PRN PO PAIN 02/11/20 16:45 Olanzapine (ZyPREXA ZYDIS) 10 mg Q4HP PRN PO AGITATION 02/11/20 16:45 02/11/20 21:05 Trazodone HCl (Desyrel) 50 mg QHSP PRN PO INSOMNIA 02/11/20 16:45 Allergies Coded Allergies: Sulfa (Sulfonamide Antibiotics) (Verified Allergy, Unknown, 08/07/19) Problems (1) Psychosis Status: Acute Response to Treatment: Improving Problem Text: Continue to offer Zyprexa (2) Amphetamine abuse Status: Chronic (3) Cannabis abuse Status: Chronic Plan / VTE VTE Prophylaxis Ordered?: No Plan Diet: Continue Current Activity: Continue Current Anticipated Discharge: Home With Services (Once he resolves, likely in a few days) SAMMIE WARREN DO Feb 13, 2020 09:23
[2020-02-13 17:21] VITALS: BP 134/81
[2020-02-14] MEDS: OLANZapine ORAL DISINTEGRATING TAB 5MG PO SCH ×2 (08:54→20:23)
[2020-02-14 16:22] VITALS: BP 122/84
--- NOTE | 2020-02-14 18:15 | MHIPNPDOC ---
[facility] Progress Note Progress Note DATE OF SERVICE: 02/14/20 HISTORY: As per ED report: "Pt brought to ED by EMS, was found in the community acting bizarre/agitated, has long hx of polysubstance abuse and psychosis with prior psych admissions. Pt making bizarre statements prior to and after arrival to ED, fairly agitated and was provided with Ativan and Zyprexa." VITAL SIGNS: See below. NEW TEST RESULTS: See below CURRENT MEDICATIONS: See below. MENTAL STATUS EXAMINATION: Patient is a 35-year old male, who is alert, cooperative, dressed in hospital clothes. Speech: Is tangential Language skills are fair Thought processes including: tangential, disorganized. Thought content: positive for paranoid and bizarre delusions, reports visual hallucinations, he says he sees the "vibes" from people Description of associations: Loose Description of abnormal or psychotic thoughts: Paranoid, bizarre delusions, he says he sees other people vibrations Judgment: poor Insight: poor Orientation: Recent and remote memory: Patient is not able to focus, he is internally preoccupied and his thought process is disorganized Attention span and concentration: Poor Fund of knowledge: Unable to assess, patient is too disorganized Mood: " I'm worried" Affect: Congruent with mood, labile, anxious DIAGNOSES: 1. Unspecified Psychotic disorder 2. Amphetamine abuse 3. Cannabis abuse 4. R/O Amphetamine induced psychotic disorder ASSESSMENT: The patient continues to be psychotic. He is paranoid and he explains this is because he feels "the vibes" and that, he can see other people's "vibes". It scares him most of the time because when he feels their "vibes" he realizes if they are good or not good people. He starts talking about Budhism and meditation and he says he practices meditation because it cleanses him from other people's "vibes". MANAGEMENT PLAN: Continue with current treatment plan TIME SPENT: 20 minutes. Vital Signs Vital Signs Date Time Temp Pulse Resp B/P (MAP) Pulse Ox O2 Delivery O2 Flow Rate FiO2 02/13/20 17:21 98.0 79 16 134/81 (98) 02/13/20 06:48 99 Room Air Current Medications Current Medications Medications (Trade) Dose Ordered Sig/Elbert Route PRN Reason Start Time Stop Time Status Last Admin Dose Admin Acetaminophen (Tylenol Tab) 650 mg Q6HP PRN PO HEADACHE or DISCOMFORT 02/11/20 16:45 Home Med (Med Rec Complete!) ASDIRECTED XX 02/11/20 14:30 02/11/20 14:27 DC Ibuprofen (Advil) 400 mg Q6HP PRN PO PAIN 02/11/20 16:45 Olanzapine (ZyPREXA ZYDIS) 5 mg BID PO 02/13/20 09:00 02/13/20 20:26 Olanzapine (ZyPREXA ZYDIS) 10 mg Q4HP PRN PO AGITATION 02/11/20 16:45 02/11/20 21:05 Trazodone HCl (Desyrel) 50 mg QHSP PRN PO INSOMNIA 02/11/20 16:45 Allergies Coded Allergies: Sulfa (Sulfonamide Antibiotics) (Verified Allergy, Unknown, 08/07/19) JULIANNA OROZCO MD Feb 14, 2020 12:23
[2020-02-15] MEDS: OLANZapine ORAL DISINTEGRATING TAB 5MG PO SCH (08:48)
--- NOTE | 2020-02-15 13:09 | MHIPNPDOC ---
[facility] Progress Note Progress Note DATE OF SERVICE: 02/15/20 HISTORY: As per ED report: "Pt brought to ED by EMS, was found in the community acting bizarre/agitated, has long hx of polysubstance abuse and psychosis with prior psych admissions. Pt making bizarre statements prior to and after arrival to ED, fairly agitated and was provided with Ativan and Zyprexa." VITAL SIGNS: See below. NEW TEST RESULTS: See below CURRENT MEDICATIONS: See below. MENTAL STATUS EXAMINATION: Patient is a 35-year old male, who is alert, cooperative, dressed in hospital clothes. Speech: Is tangential Language skills are fair Thought processes including: less tangential and less circumstantial today, he is not talking very fast today. His speech is less pressured Thought content: positive for paranoid and bizarre delusions, he felt as if the "feds" are following him and he feels as if he feel the vibes of other people. Description of associations: Loose Description of abnormal or psychotic thoughts: Paranoid, bizarre delusions, he says he sees other people vibrations Judgment: poor Insight: poor Orientation: Recent and remote memory: Patient is not able to focus, he is internally preoccupied and his thought process is disorganized Attention span and concentration: Poor Fund of knowledge: Unable to assess, patient is too disorganized Mood: "Nervous" Affect: Congruent with mood, he is laughing and joking through the interview but he is still a little bit restless and fidgety DIAGNOSES: 1. Unspecified Psychotic disorder 2. Amphetamine abuse 3. Cannabis abuse 4. R/O Amphetamine induced psychotic disorder ASSESSMENT: He is still anxious, heis still paranoid but he is improved. Today he has not been so tangential and so circumstantial. Yesterday he was really derailed and his speech was faster and more pressured. MANAGEMENT PLAN: Continue with current treatment plan TIME SPENT: 20 minutes. Vital Signs Vital Signs Date Time Temp Pulse Resp B/P (MAP) Pulse Ox O2 Delivery O2 Flow Rate FiO2 02/14/20 16:22 98.3 82 18 122/84 (97) 02/13/20 06:48 99 Room Air Current Medications Current Medications Medications (Trade) Dose Ordered Sig/Elbert Route PRN Reason Start Time Stop Time Status Last Admin Dose Admin Acetaminophen (Tylenol Tab) 650 mg Q6HP PRN PO HEADACHE or DISCOMFORT 02/11/20 16:45 Home Med (Med Rec Complete!) ASDIRECTED XX 02/11/20 14:30 02/11/20 14:27 DC Ibuprofen (Advil) 400 mg Q6HP PRN PO PAIN 02/11/20 16:45 Olanzapine (ZyPREXA ZYDIS) 5 mg BID PO 02/13/20 09:00 02/14/20 20:23 Olanzapine (ZyPREXA ZYDIS) 10 mg Q4HP PRN PO AGITATION 02/11/20 16:45 02/11/20 21:05 Trazodone HCl (Desyrel) 50 mg QHSP PRN PO INSOMNIA 02/11/20 16:45 Allergies Coded Allergies: Sulfa (Sulfonamide Antibiotics) (Verified Allergy, Unknown, 08/07/19) JULIANNA OROZCO MD Feb 15, 2020 13:08
[2020-02-15 16:24] VITALS: BP 130/90
[2020-02-15] MEDS: traZODone 50 MG TAB PO PRN (20:30)
[2020-02-15] MEDS: OLANZapine ORAL DISINTEGRATING TAB 5MG PO PRN (20:30)
[2020-02-16] MEDS ORDERED: OLANZapine ORAL DISINTEGRATING TAB 5MG PO SCH ×2 (09:00→21:00)
--- NOTE | 2020-02-16 13:32 | MHIPNPDOC ---
[facility] Progress Note Progress Note DATE OF SERVICE: 02/16/20 Subjective DIFFICULT TO HEAR PATIENT still fairly tangental . Justin presents today for a follow up. Currently taking Zyprexa which has been causing side effects, such as feeling hyper and anxious. Staff reports still hypersexual and distorted. Objective General: poor Speech: rapid Thought processes: tangential Thought content: psychotic delusions Abstract reasoning, and computation: impaired Description of associations: imparied Description of abnormal or psychotic thoughts:Unclear, appears to have psychotic processes going on. Judgment: poor Insight: poor Orientation: Alert and orientated 3 Recent and remote memory: Intact Attention span and concentration: impaired secondary to thought process Fund of knowledge: unable to determine Mood: "fine" Affect: flat, little reactivity Assessment F29 Unspecified psychosis not due to a substance or known physiological condition F19.988 Other psychoactive substance use, unspecified with other psychoactive substance-induced disorder Plan Patient still quite psychotic. Unable to really get a full sense of his review of systems. Change Zyprexa to Invega 3mg ideally for an injection. Hes still quite psychotic and well need to retain on an involuntary. Vital Signs Vital Signs Date Time Temp Pulse Resp B/P (MAP) Pulse Ox O2 Delivery O2 Flow Rate FiO2 02/15/20 16:24 97.4 82 18 130/90 (103) 02/13/20 06:48 99 Room Air Current Medications Current Medications Medications (Trade) Dose Ordered Sig/Elbert Route PRN Reason Start Time Stop Time Status Last Admin Dose Admin Acetaminophen (Tylenol Tab) 650 mg Q6HP PRN PO HEADACHE or DISCOMFORT 02/11/20 16:45 Home Med (Med Rec Complete!) ASDIRECTED XX 02/11/20 14:30 02/11/20 14:27 DC Ibuprofen (Advil) 400 mg Q6HP PRN PO PAIN 02/11/20 16:45 Olanzapine (ZyPREXA ZYDIS) 5 mg BID PO 02/13/20 09:00 02/15/20 16:50 DC 02/14/20 20:23 Olanzapine (ZyPREXA ZYDIS) 5 mg QAM PO 02/16/20 09:00 02/15/20 18:13 DC Olanzapine (ZyPREXA ZYDIS) 5 mg QHS PO 6/15/20 21:00 Olanzapine (ZyPREXA ZYDIS) 10 mg Q4HP PRN PO AGITATION 02/11/20 16:45 02/15/20 20:30 Trazodone HCl (Desyrel) 50 mg QHSP PRN PO INSOMNIA 02/11/20 16:45 02/15/20 20:30 Allergies Coded Allergies: Sulfa (Sulfonamide Antibiotics) (Verified Allergy, Unknown, 08/07/19) SAMMIE WARREN DO Feb 16, 2020 13:32
[2020-02-16 15:39] VITALS: BP 138/68
[2020-02-16] MEDS ORDERED: BACITRACIN OINTMENT 30GM TUBE TOP PRN (16:30)
[2020-02-16] MEDS: traZODone 50 MG TAB PO PRN (20:17)
[2020-02-16] MEDS ORDERED: PALIPERIDONE 3 MG ER TAB (INVEGA) PO SCH (21:00)
[2020-02-17 06:00] VITALS: BP 110/70
--- NOTE | 2020-02-17 09:25 | MHIPNPDOC ---
[facility] Progress Note Progress Note DATE OF SERVICE: 02/17/20 HISTORY: . VITAL SIGNS: See below. NEW TEST RESULTS: . CURRENT MEDICATIONS: See below. MENTAL STATUS EXAMINATION: Patient is a -year old male, who is . Speech: Is . Language skills are . Thought processes including: . Thought content: . Abstract reasoning, and computation: . Description of associ ations: . Description of abnormal or psychotic thoughts: . Judgment: . Insight: [very limited, good, fair. poor]. Orientation: . Recent and remote memory: . Attention span and concentration: . Language: . Fund of knowledge: . Mood: . Affect: . DIAGNOSES: 1. . 2. . 3. . ASSESSMENT: MANAGEMENT PLAN: . TIME SPENT: minutes. Vital Signs Vital Signs Date Time Temp Pulse Resp B/P (MAP) Pulse Ox O2 Delivery O2 Flow Rate FiO2 02/17/20 06:00 97.7 81 12 110/70 (83) 99 Room Air Current Medications Current Medications Medications (Trade) Dose Ordered Sig/Elbert Route PRN Reason Start Time Stop Time Status Last Admin Dose Admin Acetaminophen (Tylenol Tab) 650 mg Q6HP PRN PO HEADACHE or DISCOMFORT 02/11/20 16:45 Bacitracin (Bacitracin Oint) APPLY TO LEFT SHOUL... BIDP PRN TOP REDNESS/IRRITATION 02/16/20 16:30 Home Med (Med Rec Complete!) ASDIRECTED XX 02/11/20 14:30 02/11/20 14:27 DC Ibuprofen (Advil) 400 mg Q6HP PRN PO PAIN 02/11/20 16:45 Olanzapine (ZyPREXA ZYDIS) 5 mg BID PO 02/13/20 09:00 02/15/20 16:50 DC 02/14/20 20:23 Olanzapine (ZyPREXA ZYDIS) 5 mg QAM PO 02/16/20 09:00 02/15/20 18:13 DC Olanzapine (ZyPREXA ZYDIS) 5 mg QHS PO 02/16/20 21:00 02/16/20 13:53 DC Olanzapine (ZyPREXA ZYDIS) 10 mg Q4HP PRN PO AGITATION 02/11/20 16:45 02/15/20 20:30 Paliperidone (Invega) 3 mg QHS PO 02/16/20 21:00 02/16/20 20:17 Trazodone HCl (Desyrel) 50 mg QHSP PRN PO INSOMNIA 02/11/20 16:45 02/16/20 20:17 Allergies Coded Allergies: Sulfa (Sulfonamide Antibiotics) (Verified Allergy, Unknown, 08/07/19) SAMMIE WARREN 16, 2020 09:25
--- NOTE | 2020-02-17 10:31 | MHDSPDOC ---
[facility] Discharge Summary Discharge Summary DATE OF ADMISSION: Feb 11, 2020 at 16:34 DATE OF DISCHARGE: Feb 17, 2020 at 12:41 DISCHARGE DIAGNOSES: See Problem list below REASON FOR ADMISSION: 35-year-old man admitted after using various substances becoming psychotic CONSULTANTS INVOLVED:[ None (basic hospitalist screening)] TREATMENT AND PROGRESS ON THE UNIT : Medication changes: treat initially was Zyprexa with positive results, however he reported having erections on it were he was change to in Torres 3 mg the produce very quick positive results in his psychosis resolving quite precipit ously Behavior on unit: initially aggressive and irritable, then he became more demeaning and misogynistic, however, it appears that even when he is doing well. He is still quite misogynistic Treatment attendance: attended times Notable issues on presentation: no major State on discharge: [improved] DISCHARGE ASSESSMENT: The patient a 35 year old man, with likely substance induced psychosis, presented to [facility], where they treated with appropriate agents and resolve. Legal status considerations: The patient at the time of discharge did not meet criteria for involuntary admission/extension due to having a baseline mental status exam, baseline insight into the situation, They are engaged in the discharge process, as well as being friendly and amenable in behavioral control and havent been engaging in any observed concerning behavior or ideation recently. They decline voluntary extension/admission at this time and must be discharged in good shania, as Im unable to make a case for holding the patient against their will. They may have historical risk factors of admissions and other interactions with psychiatry however, those are not modifiable from a clinical perspective. The patient will need to be discharged in good shania. MENTAL STATUS EXAMINATION ON DISCHARGE: General: [Well dressed with good hygiene] Speech: [Spontaneous and fluid] Thought processes: [Linear and logical] Thought content: [Future orientated] Abstract reasoning, and computation: [Intact] Description of associations: [Intact] Description of abnormal or psychotic thoughts:[Denies any suicidal or homicidal ideation. Denies any auditory or visual hallucinations. Does not appear to be responding to internal stimuli. Does not appear to be endorsing any bizarre or paranoid ideation.] Judgment: chronically limited Insight: chronically limited Orientation: [Alert and orientated 3] Recent and remote memory: [Intact] Attention span and concentration: [Intact] Fund of knowledge: [Adequate] Mood: ["okay"] Affect: [Euthymic with a full range] PLAN/FOLLOWUP ARRANGEMENTS: Follow up appointments made (PCP and MH in 5 days of D/C date) and safety plan completed. Safety Planning aspects completed prior to discharge [SAFE ACT reported on initial invol admission in ER] [Medication supplies limited to 7 days with 4 refills to prevent accumulation to OD] [RN reviewed crisis hotline information and other aspects to empower patient to access care in interim before next appointment.] The amount of time spent in the coordination of care for this patient was approximately 30 minutes. Vital Signs/I&Os Vital Signs Date Time Temp Pulse Resp B/P (MAP) Pulse Ox O2 Delivery O2 Flow Rate FiO2 02/17/20 06:00 97.7 81 12 110/70 (83) 99 Room Air Medications Scheduled Paliperidone (Paliperidone ER) 3 Mg Tab.er.24, 3 MG PO QHS for thoughts for 7 Days, #7 Allergies Coded Allergies: Sulfa (Sulfonamide Antibiotics) (Verified Allergy, Unknown, 08/07/19) Problems (1) Psychosis Status: Resolved (2) Amphetamine abuse Status: Chronic (3) Cannabis abuse Status: Chronic Plan / VTE VTE Prophylaxis Ordered?: No SAMMIE WARREN DO Feb 17, 2020 10:31
[2020-02-17] MEDS ORDERED: PALI1TAB2 PO (10:37)
== END 2020-02-17 12:41 | disposition home or self-care (01) | DRG 776 ==
LOC: M ED 17:48 → EDBD 17:48 → M ED INP 02-11 16:34 → M PSY 02-11 20:13
PROVIDERS: ADMIT Psychiatry & Neurology Addiction Medicine; ATTEND Psychiatry & Neurology Addiction Medicine
DX: F15.14 Other stimulant abuse with stimulant-induced mood disorder (principal); F12.10 Cannabis abuse, uncomplicated; Z88.2 Allergy status to sulfonamides

== ENCOUNTER 2020-03-08 21:01 | Emergency (ER) | payer MEDICAID ==
[~2020-03-08 21:01] MED LIST changes: +PALI1TAB2 PO; +RISP0.5T3 PO
[2020-03-08] MEDS ORDERED: ZYPR5TAB2 PO (21:17)
[2020-03-08] MEDS ORDERED: HALOPERIDOL 5MG/ML VIAL (J1630 PER 1) IM STA (22:08)
[2020-03-08] MEDS ORDERED: HALOPERIDOL 5MG/ML VIAL (J1630 PER 1) As Ordered ONE (22:11)
[2020-03-08] MEDS ORDERED: diphenhydrAMINE 50MG/ML VIAL (J1200) As Ordered ONE (22:12)
[2020-03-08] MEDS ORDERED: LORazepam 2 MG/ML VIAL As Ordered ONE (22:13)
[2020-03-08] MEDS ORDERED: diphenhydrAMINE 50MG/ML VIAL (J1200) IM ONE (22:15)
[2020-03-08] MEDS ORDERED: LORazepam 2 MG/ML VIAL IM ONE (22:15)
[2020-03-08 22:44] LABS: HEMATOCRIT 41.1 % (42.0-52.0); HEMOGLOBIN 14.3 g/dl (13.5-17.5); MEAN CORPUSCULAR HEMOGLOBIN 31.5 pg (27.0-33.0); MEAN CORPUSCULAR HGB CONC 34.8 g/dl (32.0-36.5); MEAN CORPUSCULAR VOLUME 90.5 fl (80.0-96.0); PLATELET COUNT, AUTOMATED 258 10^3/uL (150-450); RED BLOOD COUNT 4.54 10^6/uL (4.30-6.10); WHITE BLOOD COUNT 6.5 10^3/uL (4.0-10.0)
[2020-03-08 23:11] LABS: AMPHETAMINES LEVEL URINE NEGATIVE (NEGATIVE); BARBITURATES URINE NEGATIVE (NEGATIVE); BENZODIAZEPINES URINE NEGATIVE (NEGATIVE); CANNABINOIDS URINE NEGATIVE (NEGATIVE); COCAINE METABOLITE URINE NEGATIVE (NEGATIVE); METHADONE URINE NEGATIVE (NEGATIVE); OPIATES URINE NEGATIVE (NEGATIVE); PHENCYCLIDINE URINE NEGATIVE (NEGATIVE)
[2020-03-08 23:19] LABS: ALBUMIN 4.1 GM/DL (3.2-5.2); ALT/SGPT 38 U/L (12-78); BILIRUBIN,DIRECT < 0.1 MG/DL (0.0-0.2); BILIRUBIN,TOTAL 0.4 MG/DL (0.2-1.0); BLOOD UREA NITROGEN 19 MG/DL (7-18); CALCIUM LEVEL 9.1 MG/DL (8.5-10.1); CARBON DIOXIDE LEVEL 25 MEQ/L (21-32); CHLORIDE LEVEL 105 MEQ/L (98-107); CREATININE FOR GFR 1.16 MG/DL (0.70-1.30); ETHYL ALCOHOL (ETHANOL) < 0.003 % (0.000-0.010); GLOMERULAR FILTRATION RATE > 60.0 (>60); GLUCOSE, FASTING 99 MG/DL (70-100); POTASSIUM SERUM 3.9 MEQ/L (3.5-5.1); SALICYLATE LEVEL < 1.7 MG/DL (5.0-30.0); SODIUM LEVEL 141 MEQ/L (136-145); TOTAL PROTEIN 7.9 GM/DL (6.4-8.2)
[2020-03-08 23:20] LABS: ACETAMINOPHEN LEVEL < 2.0 UG/ML (10.0-30.0)
[2020-03-09 00:47] VITALS: BP 124/74
== END 2020-03-09 01:01 | disposition home or self-care (01) ==
LOC: M ED 21:01 → EDBD 21:01 → EDSEX 21:01 → M ED 03-09 01:01
DX: F20.9 Schizophrenia, unspecified (principal); Z91.19 Patient's noncompliance with other medical treatment and regimen; Z79.899 Other long term (current) drug therapy; Z88.1 Allergy status to other antibiotic agents; Z88.2 Allergy status to sulfonamides; F17.210 Nicotine dependence, cigarettes, uncomplicated
CPT/HCPCS: 36415; 80048; 80076; 80307; 84443; 85027; 96372; 99285; G0480; J1200; J1630; J2060

== ENCOUNTER 2021-06-29 22:30 | Inpatient (IN) | payer OTHER ==
[~2021-06-29] VITALS: Ht 177.8 cm; Wt 98.9 kg
[~2021-06-29 22:30] MED LIST changes: +OLAN1TAB16 PO; -OLAN5TAB PO; +RISP-7 PO; -RISP0.5T3 PO
--- OUTSIDE RECORDS SUMMARY | 2021-06-29 22:33 | CCD ---
Author Author [facility] Organization [facility] Address Unknown Phone Unavailable Support Name Relationship Address Phone TYLER TOBIAS Next Of Kin [address] [place] [address] UE Next Of Kin Unknown Unavailable [place] [address] V[place] [address] [employer]AD[employer] ATTEND[employer], [employer] Next Of Kin [address] [place] [address] Re-disclosure Warning The records that you are about to access may contain information from federally-assisted alcohol or drug abuse programs. If such information is present, then the following federally mandated warning applies: This information has been disclosed to you from records protected by federal confidentiality rules (42 CFR part 2). The federal rules prohibit you from making any further disclosure of this information unless further disclosure is expressly permitted by the written consent of the person to whom it pertains or as otherwise permitted by 42 CFR part 2. A general authorization for the release of medical or other information is NOT sufficient for this purpose. The Federal rules restrict any use of the information to criminally investigate or prosecute any alcohol or drug abuse patient.The records that you are about to access may contain highly sensitive health information, the redisclosure of which is protected by Article 27-F of the [facility] Public Health law. If you continue you may have access to information: Regarding HIV / AIDS; Provided by facilities licensed or operated by the [facility] Office of Mental Health; or Provided by the [facility] Office for People With Developmental Disabilities. If such information is present, then the following [facility] mandated warning applies: This information has been disclosed to you from confidential records which are protected by state law. State law prohibits you from making any further disclosure of this information without the specific written consent of the person to whom it pertains, or as otherwise permitted by law. Any unauthorized further disclosure in violation of state law may result in a fine or usp sentence or both. A general authorization for the release of medical or other information is NOT sufficient authorization for further disc losure. Medications No Information Insurance Providers Payer name Policy type / Coverage type Policy ID Covered democrat ID Covered democrat's relationship to correa Policy Correa Plan Information Medicaid P [id number] S [id number] [place] [id number] SP [id number] MEDICAID [id number] SP [id number] Medicaid P [id number] S [id number] Medicaid Dental S [id number] S [id number] ARIS [id number] SP [id number] SELF PAY ONLY NONE SP NONE SELF PAY UNAVAILABLE SP UNAVAILA BLE [facility] CATH LAB TECHNOLOGIST DEPT [id number] SP [id number] [facility] NURSING PROGRAM MANAGER DEP [id number] SP [id number] DEPARTMENT OF CORRECTIONS [id number] S [id number] DEPARTMENT OF CORRECTIONS UNAVAILABLE S UNAVAILABLE [facility] CATH LAB TECHNOLOGIST DEPT [id number] SP [id number] Problems, Conditions, and Diagnoses No Information Surgeries/Procedures No Information Results ID Date Data Source [id number] 03/23/2021 06:00:00 AM EDT [facility] Name Value Range Interpretation Code Description Data Mary rce(s) Supporting Document(s) SARS-CoV-2 (COVID-19) RNA [Presence] in Respiratory specimen by ANA M with probe detection Not Detected [facility] This lab was ordered by [facility] [employer] and reported by [email or web address]. ID Date Data Source [id number] 12/16/2020 06:00:00 AM EDT [facility] Name Value Range Interpretation Code Description Data Mary rce(s) Supporting Document(s) SARS-CoV-2 (COVID-19) RNA [Presence] in Respiratory specimen by ANA M with probe detection Not Detected [facility] This lab was ordered by [facility] and reported by [email or web address]. ID Date Data Source [id number] 10/05/2020 12:00:00 AM EST [facility] Name Value Range Interpretation Code Description Data Mary rce(s) Supporting Document(s) SARS-CoV-2 (COVID-19) RNA [Presence] in Respiratory specimen by ANA M with probe detection Not Detected [facility] This lab was ordered by [facility] and reported by [employer] Procedure Social History No Information
[2021-06-29 23:36] LABS: HEMATOCRIT 45.9 % (42.0-52.0); HEMOGLOBIN 15.5 g/dl (13.5-17.5); MEAN CORPUSCULAR HEMOGLOBIN 31.4 pg (27.0-33.0); MEAN CORPUSCULAR HGB CONC 33.8 g/dl (32.0-36.5); MEAN CORPUSCULAR VOLUME 93.1 fl (80.0-96.0); PLATELET COUNT, AUTOMATED 259 10^3/uL (150-450); RED BLOOD COUNT 4.93 10^6/uL (4.30-6.10)
[2021-06-29] MEDS ORDERED: LORazepam 2 MG/ML VIAL IM STA (23:48)
[2021-06-30 00:17] LABS: ACETAMINOPHEN LEVEL < 2.0 UG/ML (10.0-30.0); ALBUMIN 5.1 GM/DL (3.2-5.2); ALT/SGPT 39 U/L (12-78); BILIRUBIN,DIRECT 0.3 MG/DL (0.0-0.2); BILIRUBIN,TOTAL 1.4 MG/DL (0.2-1.0); BLOOD UREA NITROGEN 24 MG/DL (7-18); CALCIUM LEVEL 9.8 MG/DL (8.5-10.1); CARBON DIOXIDE LEVEL 25 MEQ/L (21-32); CHLORIDE LEVEL 100 MEQ/L (98-107); CPK CREATINE PHOSPHOKINASE 2069 U/L (39-308); CREATININE FOR GFR 1.38 MG/DL (0.70-1.30); ETHYL ALCOHOL (ETHANOL) < 0.003 % (0.000-0.010); GLOMERULAR FILTRATION RATE > 60.0 (>60); GLUCOSE, FASTING 92 MG/DL (70-100); POTASSIUM SERUM 4.1 MEQ/L (3.5-5.1); SALICYLATE LEVEL < 1.7 MG/DL (5.0-30.0); SODIUM LEVEL 133 MEQ/L (136-145); THYROID STIMULATING HORMONE 0.776 uIU/ML (0.358-3.740)
--- OUTSIDE RECORDS SUMMARY | 2021-06-30 00:42 | CCD ---
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 If you continue you may have access to information: Regarding HIV / AIDS; Provided by facilities licensed or operated by the [facility] Office of Mental Health; or Provided by the [facility] Office for People With Developmental Disabilities. If such information is present, then the following [facility] mandated warning applies: This information has [...] law may result in a fine or fci sentence or both. A general authorization for the release of medical or other information is NOT sufficient authorization for further disc losure. Medications No Information Insurance Providers Payer name Policy type / Coverage type Policy ID Covered democrat ID Covered democrat's relationship to correa Policy [place] Plan Information Medicaid P [id number] S [id number] EMEDNY [id number] SP [id number] MEDICAID [id number] SP [id number] Medicaid P [id number] Medicaid Dental S [id number] S [id number] ARIS [id number] SP [id number] SELF PAY ONLY NONE SP NONE SELF PAY UNAVAILABLE SP UNAVAILA BLE [facility] TECHNOLOGY TRAINING ASSOCIATE DEPT [id number] SP [id number] [facility] TECHNOLOGY TRAINING ASSOCIATE DEP [id number] SP [id number] DEPARTMENT OF CORRECTIONS [id number] S [id number] DEPARTMENT OF CORRECTIONS UNAVAILABLE S UNAVAILABLE [facility] TECHNOLOGY TRAINING ASSOCIATE DEPT [id number] SP [id number] Problems, Conditions, and Diagnoses No Information Surgeries/Procedures No Information Results ID Date Data Source [id number] 03/23/2021 06:00:00 AM EDT [facility] Name Value Range Interpretation Code Description Data Mary rce(s) Supporting Document(s) SARS-CoV-2 (COVID-19) RNA [Presence] in Respiratory specimen by ANA M with probe detection Not Detected [facility] This lab was ordered by [facility] and reported by [employer]. ID Date Data Source [id number] 12/16/2020 06:00:00 AM EDT [facility] Name Value Range Interpretation Code Description Data Mary rce(s) Supporting Document(s) SARS-CoV-2 (COVID-19) RNA [Presence] in Respiratory specimen by ANA M with probe detection Not Detected [facility] This lab was ordered by [facility] [employer] and reported by [employer]. ID Date Data Source [id number] 10/05/2020 12:00:00 AM EST [facility] Name Value Range Interpretation Code Description Data Mary rce(s) Supporting Document(s) SARS-CoV-2 (COVID-19) RNA [Presence] in Respiratory specimen by ANA M with probe detection Not Detected [facility] This lab was ordered by [facility] and reported by [employer] Procedure Social History No Information
[2021-06-30] MEDS ORDERED: LORazepam 2 MG/ML VIAL IV STA ×2 (01:26→03:52)
[2021-06-30] MEDS ORDERED: NS 1,000 ML IV ONE (01:30)
[2021-06-30 02:00] LABS: AMPHETAMINES LEVEL URINE POSITIVE (NEGATIVE); BARBITURATES URINE NEGATIVE (NEGATIVE); BENZODIAZEPINES URINE NEGATIVE (NEGATIVE); CANNABINOIDS URINE POSITIVE (NEGATIVE); COCAINE METABOLITE URINE POSITIVE (NEGATIVE); METHADONE URINE NEGATIVE (NEGATIVE); OPIATES URINE NEGATIVE (NEGATIVE); PHENCYCLIDINE URINE NEGATIVE (NEGATIVE)
[2021-06-30] MEDS ORDERED: LORazepam 2 MG/ML VIAL As Ordered ONE (02:07)
[2021-06-30] MEDS ORDERED: NS 2,000 ML in IV 1 EA IV ONE (02:30)
[2021-06-30 02:49] LABS: RSV AMPLIFICATION NEGATIVE (NEGATIVE)
[2021-06-30] MEDS ORDERED: HALOPERIDOL 5MG/ML VIAL (J1630 PER 1) IM STA (03:02)
[2021-06-30] MEDS ORDERED: ACETAMINOPHEN TAB 650MG DOSE (2X325MG) PO PRN (13:10)
[2021-06-30] MEDS ORDERED: MAALOX 30 ML SUSP *UDC PO PRN (13:10)
[2021-06-30] MEDS ORDERED: MOM 30ML SUSPENSION UDC PO PRN (13:10)
[2021-06-30] MEDS ORDERED: risperiDONE 1 MG TAB PO PRN (13:10)
--- OUTSIDE RECORDS SUMMARY | 2021-06-30 13:19 | CCD ---
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 If you continue you may have access to information: Regarding HIV / AIDS; Provided by facilities licensed or operated by the [facility] Office of Mental Health; or Provided by the [facility] Office for People With Developmental Disabilities. If such information is present, then the following [facility] mandated warning applies: This information has been [...] law may result in a fine or mcfp sentence or both. A general authorization for the release of medical or other information is NOT sufficient authorization for further disc losure. Medications No Information Insurance Providers Payer name Policy type / Coverage type Policy ID Covered constitution party ID Covered constitution party's relationship to correa Policy [place] Plan Information Medicaid P [id number] S [id number] EMEDNY [id number] SP [id number] MEDICAID [id number] SP [id number] Medicaid P [id number] S [id number] Medicaid Dental S [id number] S [id number] ARIS [id number] SP [id number] SELF PAY ONLY NONE SP NONE SELF PAY UNAVAILABLE SP UNAVAILA BLE [facility] DIRECTOR OF LABOR AND DELIVERY DEPT [id number] SP [id number] [facility] MANAGER USER EXPERIENCE DEP [id number] SP [id number] DEPARTMENT OF CORRECTIONS [id number] S [id number] DEPARTMENT OF CORRECTIONS UNAVAILABLE S UNAVAILABLE [facility] DIRECTOR OF LABOR AND DELIVERY DEPT [id number] SP [id number] Problems, Conditions, and Diagnoses No Information Surgeries/Procedures No Information Results ID Date Data Source [id number] 03/23/2021 06:00:00 AM EDT [facility] Name Value Range Interpretation Code Description Data Mary rce(s) Supporting Document(s) SARS-CoV-2 (COVID-19) RNA [Presence] in Respiratory specimen by ANA M with probe detection Not Detected [facility] This lab was ordered by [facility] [employer] and reported by [employer]. ID Date Data Source [id number] 12/16/2020 06:00:00 AM EDT [facility] Name Value Range Interpretation Code Description Data Mary rce(s) Supporting Document(s) SARS-CoV-2 (COVID-19) RNA [Presence] in Respiratory specimen by ANA M with probe detection Not Detected [facility] This lab was ordered by [facility] [employer] [facility] [employer] and reported by [employer]. ID Date Data Source [id number] 10/05/2020 12:00:00 AM EST [facility] Name Value Range Interpretation Code Description Data Mary rce(s) Supporting Document(s) SARS-CoV-2 (COVID-19) RNA [Presence] in Respiratory specimen by ANA M with probe detection Not Detected [facility] This lab was ordered by [facility] and reported by [employer] Procedure Social History No Information
[2021-06-30] MEDS ORDERED: HOME MED LIST COMPLETE! XX SCH (14:15)
[2021-06-30 14:36] VITALS: BP 138/82
[2021-06-30] MEDS: PALIPERIDONE 3 MG ER TAB (INVEGA) PO SCH (20:23)
[2021-07-01] MEDS: NICOTINE 21MG/24HR 1 EA TRANSDERMAL TD SCH (09:00)
--- NOTE | 2021-07-01 13:12 | MHHPEPDOC ---
General Date Of Admission: Jun 30, 2021 Legal Status: 9.39 Chief Complaint "I see dark angry clouds" History of Present Illness HISTORY OF THE PRESENT ILLNESS: Patient is a 36 -year-old , male, who is a history of psychosis, amphetamine use, patient was brought to the ED via EMS after police were called to [employer] because patient was acting bizarrely. Patient reported to EMS that he had taken drugs that he fell on the ground, arrived to the ED with paranoia fearing that people organize shoot him, patient was disorganized, tangential, talking to people that were not in the room per chart review. Patient denied SI, HI, when asked about the date, per chart review reported it was "the year of the " and was somewhat cooperative to interview, but due to level disorganization did not comply with all questioning, screenings. Patient states that she has auditory hallucinations of people telling the gun to kill him, also reports paranoia, reports he hears 1 good voice and tells him do good things, and one bad voice that tells him to do bad things including violence, but does not elaborate, states he does not want to hurt anyone and w ould not act on these voices. He then goes on to talk about how he wants to remain into another dimension does not want to take medications offered when describing alternatives and treatments. Then goes on to talk about how there is a black mist in his room when she is angry, asks if I see this missed and later in the hallway was asking to go check out the mist in his room. Reports that Zyprexa and Invega did not work for him, however per most recent discharge from [facility] on February 11, 2020 had a good response to paliperidone 3 mg nightly for psychotic symptoms. Patient currently denies SI, HI, depression or anxiety symptoms. Was seen sleeping in his bed, reports sleep is okay and denies symptoms of colleen. Toxicology screen is positive for cocaine, cannabis, amphetamines. When asked about drug use states that he only takes stimulants including Adderall he can find on the street, meth. Denies acute physical complaints. Denies alcohol or benzodiazepine use. Psychiatric Review of Systems Depression (2 or more weeks): denies Colleen (4 or more days of): denies Psychosis: auditory hallucination, visual hallucination, delusions, paranoia, disorganization PTSD: history of trauma Anxiety: gen/non-specific anxiety Anxiety/ 6 months or more of: difficulty concentrating, sleep disturbance, personality cluster A,BC (History of stimulant use, history of fdc time reported) Past Psychiatric History Previous Psychiatric Diagnosis: See HPI Previous Psychiatric Admissions: At least 4 to [facility] for psychosis in usual context of amphetamine use Suicide Attempts: Denies, none indicated per chart review, unknown Psychiatric Follow-up: Denies Psychiatric medications: Reports poor response to Zyprexa, paliperidone, says has not tried other medications Past Medical History Medical Problems Denies Head Injury: No Seizures: No Hospitalizations: No Surgeries: No Family Medical/Psychiatric HX Medical Problems Denies, unknown, history of polysubstance abuse Addiction History cocaine, methamphetamines, other (Cannabis) Social History Childhood: Unclear reality based, grew up in [place] with 5 siblings and was the oldest child reportedly Abuse/Trauma: Unknown Current Living Situation: Reports homeless Education: Unknown Employment: Reports unemployed Social Support: Denies any close contacts Legal: Reports history of fdc time, is vague, unclear reality based Marital: Reports , currently single Mental Status Examination General Appearance: disheveled, other (Shaved half his head and patchy pattern) Build: average Demeanor: preoccupied, guarded Eye Contact: avoidant Activity: slowed Behavior: cooperative, hyperactive Speech: clear, spontaneous, slow, low in volume Mood: anxious Mood " Okay I guess" Affect: inappropriate, labile, incongruent, disorganized Thought Process: tangential, other (Disorganized) Thought Content (Delusions): persecutory, bizarre, paranoia, delusions Thought Content (Other): preoccupied, guarded, internal-stimuli, appears paranoid Thought Content (Aggressive): aggressive (assess), other (Report voices of telling him to do violent things, that he would not act on these thoughts, has no plan or intent) Perception (Hallucinations): auditory, visual Perception (Other): none reported Cognition (Impairment of): attention/concentration, other (A/O x3) Cognition(Intelligence Est.): other (Unable to fully assess) Oriented: Awake, Alert, Oriented times three Insight: poor Judgment: Poor Psychosis: Psychotic Perceptions Diagnoses Schizophrenia per history Amphetamine use disorder Cannabis use disorder Cocaine use disorder Tobacco use disorder Rule out substance-induced psychotic disorder A-FIB/CHADSVASC A-FIB History Current/History of A-Fib/PAF?: No Current PO Anticoag Therapy: No Age/Risk Factor Scoring CHADSVASC: CHADSVASC Response (Comments) Value Age Risk Factor Age < 65 years old 0 Gender Risk Factor Male 0 Hx of CHF No 0 Hx of HTN No 0 Hx of Stroke/TIA/or VTE No 0 Hx of Diabetes No 0 Hx of Vascular Disease No 0 Total 0 Treatment Treatment ordered: NONE Reason Anticoagulant not given: Not indicated/[id number] Assessment Patient is a 36-year-old man who is a history of psychosis, amphetamine use and stimulant use, presents with bizarre behavior at a gas station in context of polysubstance abuse including cocaine, cannabis, amphetamines per toxicology screen. Patient is bizarre, delusional, paranoid, experiences auditory visual hallucinations, internally preoccupied and disorganized, states he refuses medication options and discussion of treatments because he wants to interact with another dimension, sees things such as dark clouds in his room which are angry, reports hears command auditory hallucinations that are both positive and negative telling him to do violent things, that he would not act out on these thoughts, has no plans. Denies SI or HI. Will start patient on paliperidone 3 mg nightly, has taken 1 dose. Initial Treatment Plan 1. Patient was admitted on a [9.39] status. 2. Complete history was obtained. 3. With patients permission, family will be contacted and database will be expanded. 4. Patients medication regimen will be reviewed and changed accordingly. 5. Patient will be provided with protected environment. 6. Patient will be treated with individual, group, and milieu therapies. 7. Patient will receive supportive psych-education. 8. Discharge planning will commence immediately. 9. Outpatient follow-up treatment will be strongly recommended. 10. The initial treatment plan will focus initially on: * Depression. * Risk for suicide. ESTIMATED LENGTH OF STAY: 4-10 DAYS. TIME SPENT COUNSELING AND COORDINATING INITIAL CARE: 60 minutes. Tobacco Cessation Screen Tobacco Cessation Tx Ordered?: Yes Ordered/Pending Vital Signs Vital Signs Date Time Temp Pulse Resp B/P (MAP) Pulse Ox O2 Delivery O2 Flow Rate FiO2 06/30/21 14:36 99.3 92 20 138/82 (100) 98 Room Air Medications Unable to Obtain Active Prescriptions or Reported Meds Allergies Coded Allergies: Sulfa (Sulfonamide Antibiotics) (Verified Allergy, Unknown, 08/07/19) ANDRZEJ RODGERS MD Jul 01, 2021 13:12
[2021-07-01 16:10] VITALS: BP 139/92
[2021-07-01] MEDS: PALIPERIDONE 3 MG ER TAB (INVEGA) PO SCH (21:34)
[2021-07-02 06:43] VITALS: BP 145/87
[2021-07-02] MEDS: NICOTINE 21MG/24HR 1 EA TRANSDERMAL TD SCH (09:00)
[2021-07-02 13:25] LABS: CHOLESTEROL RISK RATIO 3.14 (<5)
--- NOTE | 2021-07-02 15:49 | MHIPNPDOC ---
[facility] Progress Note Progress Note DATE OF SERVICE: 07/02/21 HISTORY: As per Dr. Brady notes: "HISTORY OF THE PRESENT ILLNESS: Patient is a 36 -year-old , male, who is a history of psychosis, amphet amine use, patient was brought to the ED via EMS after police were called to [employer] because patient was acting bizarrely. Patient reported to EMS that he had taken drugs that he fell on the ground, arrived to the ED with paranoia fearing that people organize shoot him, patient was disorganized, tangential, talking to people that were not in the room per chart review. Patient denied SI, HI, when asked about the date, per chart review reported it was "the year of the " and was somewhat cooperative to interview, but due to level disorganization did not comply with all questioning, screenings. Patient states that she has auditory hallucinations of people telling the gun to kill him, also reports paranoia, reports he hears 1 good voice and tells him do good things, and one bad voice that tells him to do bad things including violence, but does not elaborate, states he does not want to hurt anyone and would not act on these voices. He then goes on to talk about how he wants to remain into another dimension does not want to take medications offered when describing alternatives and treatments. Then goes on to talk about how there is a black mist in his room when she is angry, asks if I see this missed and later in the hallway was asking to go check out the mist in his room. Reports that Zyprexa and Invega did not work for him, however per most recent discharge from [facility] on February 11, 2020 had a good response to paliperidone 3 mg nightly for psychotic symptoms. Patient currently denies SI, HI, depression or anxiety symptoms. Was seen sleeping in his bed, reports sleep is okay and denies symptoms of terrell. Toxicology screen is positive for cocaine, cannabis, amphetamines. When asked about drug use states that he only takes stimulants including Adderall he can find on the street, meth. Denies acute physical complaints. Denies alcohol or benzodiazepine use." VITAL SIGNS: See below. NEW TEST RESULTS: See belos CURRENT MEDICATIONS: See below. MENTAL STATUS EXAMINATION: General Appearance: disheveled, other (Shaved half his head and patchy pattern) Build: average Demeanor: preoccupied, anxious, psychotic Eye Contact: good Activity: slowed Behavior: cooperative, fidgety Speech: clear, spontaneous, slow, low in volume Mood: anxious Mood " OK" Affect: anxious Thought Process: tangential, disorganized Thought Content (Delusions): has bizarre delusions, related to New Age spiritual theories, he has paranoid delusions Thought Content (Other): preoccupied, guarded, internal-stimuli, appears paranoid Thought Content (Aggressive): he reports entities re trying to kill him, he sys he would show the entities that he is tough, that he can survive Perception (Hallucinations): auditory, visual Perception (Other): none reported Cognition (Impairment of): attention/concentration, other (A/O x3) Cognition(Intelligence Est.): other (Unable to fully assess) Oriented: Awake, Alert, Oriented times three Insight: poor Judgment: Poor Psychosis: Psychotic Perceptions Diagnoses Schizophrenia per history Amphetamine use disorder Cannabis use disorder Cocaine use disorder Tobacco use disorder Rule out substance-induced psychotic disorder ASSESSMENT: He is very psychotic, convinced he sees ghsts, he has bben reading about the 7 Dimensions, about the [place], about "entities". He says [place] protects him. He says [place] protects the [place] and protects him and other people. MANAGEMENT PLAN: Will increase Paliperidone to 3 mgs PO BID TIME SPENT: 30 minutes. Vital Signs Vital Signs Date Time Temp Pulse Resp B/P (MAP) Pulse Ox O2 Delivery O2 Flow Rate FiO2 07/02/21 06:43 97.1 73 18 145/87 (106) Room Air 07/01/21 16:10 96 Laboratory Data 24H Labs Laboratory Tests 2 07/02/21 12:12: Triglycerides Level 126, Total Cholesterol 223H, LDL Cholesterol 127H, Non-HDL Cholesterol (LDL + VLDL) 152, Total HDL Cholesterol 71, Cholesterol/HDL Ratio 3.140 Current Medications Current Medications Medications (Trade) Dose Ordered Sig/Elbret Route PRN Reason Start Time Stop Time Status Last Admin Dose Admin Acetaminophen (Tylenol Tab) 650 mg Q6HP PRN PO HEADACHE or MILD DISCOMFORT 06/30/21 13:10 Al Hydrox/Mg Hydrox/Simethicone (Mylanta) 30 ml Q4HP PRN PO HEARTBURN/INDIGESTION 06/30/21 13:10 Haloperidol (Haldol) 5 mg STAT STAT IM 06/30/21 03:02 06/30/21 03:11 DC Home Med (Home Med List Complete!) ASDIRECTED XX 06/30/21 14:15 06/30/21 14:34 DC Lorazepam (Ativan) 2 mg STAT STAT IM 06/29/21 23:48 06/29/21 23:49 DC 06/30/21 00:11 Lorazepam (Ativan) 2 mg STAT STAT IV 06/30/21 01:26 06/30/21 01:27 DC 06/30/21 02:10 Lorazepam (Ativan) 2 mg STAT STAT IV 06/30/21 03:52 06/30/21 03:55 DC 06/30/21 03:05 Magnesium Hydroxide (Milk Of Magnesia) 30 ml DAILYPRN PRN PO CONSTIPATION 06/30/21 13:10 07/02/21 09:59 Nicotine (Nicoderm Cq 21mg) 1 patch DAILY TD 07/01/21 09:00 Paliperidone (Invega) 3 mg QHS PO 06/30/21 21:00 07/01/21 21:34 Risperidone (RisperDAL) 1 mg Q2HP PRN PO AGITATION 06/30/21 13:10 Trazodone HCl (Desyrel) 50 mg QHSP PRN PO INSOMNIA 06/30/21 13:10 Allergies Coded Allergies: Sulfa (Sulfonamide Antibiotics) (Verified Allergy, Unknown, 08/07/19) JULIANNA OROZCO MD Jul 02, 2021 15:26
[2021-07-02 16:22] VITALS: BP 156/94
[2021-07-02] MEDS: PALIPERIDONE 3 MG ER TAB (INVEGA) PO SCH (21:45)
[2021-07-03 07:03] VITALS: BP 146/91
[2021-07-03] MEDS: NICOTINE 21MG/24HR 1 EA TRANSDERMAL TD SCH (09:00)
[2021-07-03] MEDS: PALIPERIDONE 3 MG ER TAB (INVEGA) PO SCH ×2 (09:00→21:11)
--- NOTE | 2021-07-03 11:31 | MHIPNPDOC ---
[facility] Progress Note Progress Note DATE OF SERVICE: 07/03/21 HISTORY: As per Dr. Brady notes: "HISTORY OF THE PRESENT ILLNESS: Patient is a 36 -year-old , male, who is a history of psychosis, amphet amine use, patient was brought to the ED via EMS after police were called to [employer] because patient was acting bizarrely. Patient reported to EMS that he had taken drugs that he fell on the ground, arrived to the ED with paranoia fearing that people organize shoot him, patient was disorganized, tangential, talking to people that were not in the room per chart review. Patient denied SI, HI, when asked about the date, per chart review reported it was "the year of the " and was somewhat cooperative to interview, but due to level disorganization did not comply with all questioning, screenings. Patient states that she has auditory hallucinations of people telling the gun to kill him, also reports paranoia, reports he hears 1 good voice and tells him do good things, and one bad voice that tells him to do bad things including violence, but does not elaborate, states he does not want to hurt anyone and would not act on these voices. He then goes on to talk about how he wants to remain into another dimension does not want to take medications offered when describing alternatives and treatments. Then goes on to talk about how there is a black mist in his room when she is angry, asks if I see this missed and later in the hallway was asking to go check out the mist in his room. Reports that Zyprexa and Invega did not work for him, however per most recent discharge from [facility] on February 11, 2020 had a good response to paliperidone 3 mg nightly for psychotic symptoms. Patient currently denies SI, HI, depression or anxiety symptoms. Was seen sleeping in his bed, reports sleep is okay and denies symptoms of terrell. Toxicology screen is positive for cocaine, cannabis, amphetamines. When asked about drug use states that he only takes stimulants including Adderall he can find on the street, meth. Denies acute physical complaints. Denies alcohol or benzodiazepine use." VITAL SIGNS: See below. NEW TEST RESULTS: See belos CURRENT MEDICATIONS: See below. MENTAL STATUS EXAMINATION: General Appearance: hygiene is good, dressed in hospital scrubs, good eye contact Build: average Demeanor: preoccupied, but less anxious, not responding to internal stimuli Eye Contact: good Activity: less slow at this time Behavior: cooperative, less restless Speech: clear, spontaneous, normal rate, normal rhythm, normal volume Mood: slightly anxious Mood " OK" Affect: anxious Thought Process: more disorganized Thought Content (Delusions): He still has bizarre delusions but denies paranoid delusions Thought Content (Other): less preoccupied, less guarded, less paranoid Thought Content (Aggressive): Denies SI/HI, denies visual/auditory hallucinations Perception (Hallucinations): auditory, visual Perception (Other): none reported Cognition (Impairment of): attention/concentration, other (A/O x3) Cognition(Intelligence Est.): average Oriented: Awake, Alert, Oriented times three Insight: improving Judgment: improving Psychosis: bizarre delusions Diagnoses Schizophrenia per history Amphetamine use disorder Cannabis use disorder Cocaine use disorder Tobacco use disorder Rule out substance-induced psychotic disorder ASSESSMENT: He says he slept well, he had lots of dreams, he can't remember. He says he woke up in the middle of the night but was able to go to sleep. He says he was still feeling a little paranoid last night but he was able to overcome. MANAGEMENT PLAN: Will increase Paliperidone to 3 mgs PO BID TIME SPENT: 30 minutes. Vital Signs Vital Signs Date Time Temp Pulse Resp B/P (MAP) Pulse Ox O2 Delivery O2 Flow Rate FiO2 07/03/21 07:03 98.3 62 18 146/91 (109) 99 07/02/21 16:22 Room Air Laboratory Data 24H Labs Laboratory Tests 2 07/02/21 12:12: Triglycerides Level 126, Total Cholesterol 223H, LDL Cholesterol 127H, Non-HDL Cholesterol (LDL + VLDL) 152, Total HDL Cholesterol 71, Cholesterol/HDL Ratio 3.140 Current Medications Current Medications Medications (Trade) Dose Ordered Sig/Elbert Route PRN Reason Start Time Stop Time Status Last Admin Dose Admin Acetaminophen (Tylenol Tab) 650 mg Q6HP PRN PO HEADACHE or MILD DISCOMFORT 06/30/21 13:10 Al Hydrox/Mg Hydrox/Simethicone (Mylanta) 30 ml Q4HP PRN PO HEARTBURN/INDIGESTION 06/30/21 13:10 Haloperidol (Haldol) 5 mg STAT STAT IM 06/30/21 03:02 06/30/21 03:11 DC Home Med (Home Med List Complete!) ASDIRECTED XX 06/30/21 14:15 06/30/21 14:34 DC Lorazepam (Ativan) 2 mg STAT STAT IM 06/29/21 23:48 06/29/21 23:49 DC 06/30/21 00:11 Lorazepam (Ativan) 2 mg STAT STAT IV 06/30/21 01:26 06/30/21 01:27 DC 06/30/21 02:10 Lorazepam (Ativan) 2 mg STAT STAT IV 06/30/21 03:52 06/30/21 03:55 DC 06/30/21 03:05 Magnesium Hydroxide (Milk Of Magnesia) 30 ml DAILYPRN PRN PO CONSTIPATION 06/30/21 13:10 07/02/21 09:59 Nicotine (Nicoderm Cq 21mg) 1 patch DAILY TD 07/01/21 09:00 Paliperidone (Invega) 3 mg BID PO 07/02/21 21:00 07/03/21 09:00 Paliperidone (Invega) 3 mg QHS PO 06/30/21 21:00 07/02/21 15:45 DC 07/01/21 21:34 Risperidone (RisperDAL) 1 mg Q2HP PRN PO AGITATION 06/30/21 13:10 07/02/21 15:46 DC Trazodone HCl (Desyrel) 50 mg QHSP PRN PO INSOMNIA 06/30/21 13:10 Allergies Coded Allergies: Sulfa (Sulfonamide Antibiotics) (Verified Allergy, Unknown, 08/07/19) JULIANNA OROZCO MD Jul 03, 2021 11:31
[2021-07-03 16:14] VITALS: BP 140/81
[2021-07-03] MEDS: traZODone 50 MG TAB PO PRN (21:14)
[2021-07-04 06:48] VITALS: BP 133/74
[2021-07-04] MEDS: NICOTINE 21MG/24HR 1 EA TRANSDERMAL TD SCH (09:00)
[2021-07-04] MEDS: PALIPERIDONE 3 MG ER TAB (INVEGA) PO SCH ×2 (09:40→21:13)
--- NOTE | 2021-07-04 11:19 | MHIPNPDOC ---
[facility] Progress Note Progress Note DATE OF SERVICE: 07/04/21 HISTORY: Patient is a 36 -year-old , male, who is a history of psychosis, amphetamine use, patient was brought to the ED via EMS after police were called to a gas station in [place] because patient was acting bizarrely. Patient reported to EMS that he had taken drugs that he fell on the ground, arrived to the ED with paranoia fearing that people organized to shoot him, patient was disorganized, tangential, talking to people that were not in the room per chart review. Patient denied SI, HI, when asked about the date, per chart review reported it was "the year of the " and was somewhat cooperative to interview, but due to level disorganization did not comply with all questioning, screenings. Patient stated that she had auditory hallucinations of people telling the gun to kill him, also reports paranoia, reports he hears 1 good voice and tells him do good things, and one bad voice that tells him to do bad things including violence, but does not elaborate, states he does not want to hurt anyone and would not act on these voices. He then went on to talk about how he wanted to remain in another dimension, does not want to take medications offered when describing alternatives and treatments. Then goes on to talk about how there is a black mist in his room when she is angry, asks if I see this missed and later in the hallway was asking to go check out the mist in his room. Reports that Zyprexa and Invega did not work for him, however per most recent discharge from [facility] on February 11, 2020 had a good response to paliperidone 3 mg nightly for psychotic symptoms. Patient currently denies SI, HI, depression or anxiety symptoms. Was seen sleeping in his bed, reports sleep is okay and denies symptoms of terrell. Toxicology screen was positive for cocaine, cannabis, amphetamines. When asked about drug use states that he only takes stimulants including Adderall he can find on the street, meth. Denies acute physical complaints. Denies alcohol or benzodiazepine use. Interval: Patient calmly lying in bed sleeping in late, patient sit up in bed, states he no longer has auditory hallucinations, no longer sees a dark mist, reports mood is improved, has been attending some groups, denies acute physical complaints, denies medication side effects, states he wants to continue on the oral paliperidone, when asked about taking the IM QUINTANA, refuses at this time. Does report some feelings of hot and cold which are improving since starting the medication. Vitals are stable, no fever. VITAL SIGNS: See below. NEW TEST RESULTS: See below CURRENT MEDICATIONS: See below. MENTAL STATUS EXAMINATION: Patient is a 36-year old male, who is sitting on bed, somewhat avoidant eye contact, improved hygiene, appears stated age Speech: Is lower volume, somewhat slowed. Language skills are intact. Thought processes including: Linear, logical. Thought content: Denies suicidal thoughts, auditory visual hallucination abstract reasoning, and computation: Fair description of associations: Fair Description of abnormal or psychotic thoughts: Denies today Judgment: Fair, improved Insight: Fair Orientation: X4. Recent and remote memory: Intact. Attention span and concentration: Decreased attention and concentration. Language: [place]. Fund of knowledge: Average based on interview. Mood: Feeling good. Affect: Mildly blunted, does not smile or laugh, appropriate, mildly paranoid DIAGNOSES: Schizophrenia per history Amphetamine use disorder Cannabis use disorder Cocaine use disorder Tobacco use disorder Rule out substance-induced psychotic disorder ASSESSMENT: Patient continues to be mildly paranoid, significantly improved since medication change yesterday increasing paliperidone to 3 mg p.o. twice orlin ly, patient denies SI or HI but continues to require stay for acute stabilization of psychotic symptoms. Possible discharge by Sunday or if continues to improve and adequate safety planning to be arranged. MANAGEMENT PLAN: Continue paliperidone 3 mg p.o. twice daily, patient refuses IM QUINTANA TIME SPENT: 15 minutes. Vital Signs Vital Signs Date Time Temp Pulse Resp B/P (MAP) Pulse Ox O2 Delivery O2 Flow Rate FiO2 07/04/21 06:48 98.6 64 16 133/74 (93) 97 Room Air Current Medications Current Medications Medications (Trade) Dose Ordered Sig/Elbert Route PRN Reason Start Time Stop Time Status Last Admin Dose Admin Acetaminophen (Tylenol Tab) 650 mg Q6HP PRN PO HEADACHE or MILD DISCOMFORT 06/30/21 13:10 Al Hydrox/Mg Hydrox/Simethicone (Mylanta) 30 ml Q4HP PRN PO HEARTBURN/INDIGESTION 06/30/21 13:10 Haloperidol (Haldol) 5 mg STAT STAT IM 06/30/21 03:02 06/30/21 03:11 DC Home Med (Home Med List Complete!) ASDIRECTED XX 06/30/21 14:15 06/30/21 14:34 DC Lorazepam (Ativan) 2 mg STAT STAT IM 06/29/21 23:48 06/29/21 23:49 DC 06/30/21 00:11 Lorazepam (Ativan) 2 mg STAT STAT IV 06/30/21 01:26 06/30/21 01:27 DC 06/30/21 02:10 Lorazepam (Ativan) 2 mg STAT STAT IV 06/30/21 03:52 06/30/21 03:55 DC 06/30/21 03:05 Magnesium Hydroxide (Milk Of Magnesia) 30 ml DAILYPRN PRN PO CONSTIPATION 06/30/21 13:10 07/02/21 09:59 Nicotine (Nicoderm Cq 21mg) 1 patch DAILY TD 07/01/21 09:00 Paliperidone (Invega) 3 mg BID PO 07/02/21 21:00 07/04/21 09:40 Paliperidone (Invega) 3 mg QHS PO 06/30/21 21:00 07/02/21 15:45 DC 07/01/21 21:34 Risperidone (RisperDAL) 1 mg Q2HP PRN PO AGITATION 06/30/21 13:10 07/02/21 15:46 DC Trazodone HCl (Desyrel) 50 mg QHSP PRN PO INSOMNIA 06/30/21 13:10 07/03/21 21:14 Allergies Coded Allergies: Sulfa (Sulfonamide Antibiotics) (Verified Allergy, Unknown, 08/07/19) ANDRZEJ RODGERS MD Jul 04, 2021 11:19
[2021-07-04 15:53] VITALS: BP 142/70
[2021-07-04] MEDS: traZODone 50 MG TAB PO PRN (21:13)
[2021-07-05 07:06] VITALS: BP 150/92
[2021-07-05] MEDS: NICOTINE 21MG/24HR 1 EA TRANSDERMAL TD SCH (09:00)
[2021-07-05] MEDS: PALIPERIDONE 3 MG ER TAB (INVEGA) PO SCH ×2 (10:19→21:23)
[2021-07-05 11:34] VITALS: BP 142/88
--- NOTE | 2021-07-05 12:57 | MHIPNPDOC ---
[facility] Progress Note Progress Note DATE OF SERVICE: 07/05/21 HISTORY: Patient is a 36 -year-old , male, who is a history of psychosis, amphetamine use, patient was brought to the ED via EMS after police were called to a gas station in [place] because patient was acting bizarrely. Patient reported to EMS that he had taken drugs that he fell on the ground, arrived to the ED with paranoia fearing that people organized to shoot him, patient was disorganized, tangential, talking to people that were not in the room per chart review. Patient denied SI, HI, when asked about the date, per chart review reported it was "the year of the " and was somewhat cooperative to interview, but due to level disorganization did not comply with all questioning, screenings. Patient stated that she had auditory hallucinations of people telling the gun to kill him, also reports paranoia, reports he hears 1 good voice and tells him do good things, and one bad voice that tells him to do bad things including violence, but does not elaborate, states he does not want to hurt anyone and would not act on these voices. He then went on to talk about how he wanted to remain in another dimension, does not want to take medications offered when describing alternatives and treatments. Then goes on to talk about how there is a black mist in his room when she is angry, asks if I see this missed and later in the hallway was asking to go check out the mist in his room. Reports that Zyprexa and Invega did not work for him, however per most recent discharge from [facility] on February 11, 2020 had a good response to paliperidone 3 mg nightly for psychotic symptoms. Patient currently denies SI, HI, depression or anxiety symptoms. Was seen sleeping in his bed, reports sleep is okay and denies symptoms of terrell. Toxicology screen was positive for cocaine, cannabis, amphetamines. When asked about drug use states that he only takes stimulants including Adderall he can find on the street, meth. Denies acute physical complaints. Denies alcohol or benzodiazepine use. Interval: Has been attending some groups, reports good response to paliperidone 3 mg twice daily, says he feels less paranoid, no longer is having visual hallucinations, but continues to have weird dreams of others being violent, not himself being violent, denies side effects or acute physical symptoms apart from chronic right elbow pain which is worsened on supination, states he hit it possibly on the hard metal previously a month ago and the pain is been getting worse, no significant swelling or redness, reports tenderness in the medial aspect. Call hospitalist team to evaluate as patient also had noticed that his blood pressures been elevated in the 150s/90s, pulse in the 60s, nursing made a calvert to get manual blood pressure, patient reports being asymptomatic, no chest pain or shortness of breath, no neurological changes. VITAL SIGNS: See below. NEW TEST RESULTS: See below CURRENT MEDICATIONS: See below. MENTAL STATUS EXAMINATION: Patient is a 36-year old male, who is sitting on bed, improved eye contact, improved hygiene, appears stated age Speech: Is lower volume, somewhat slowed. Language skills are intact. Thought processes including: Linear, logical. Thought content: Denies suicidal thoughts, auditory visual hallucination abstract reasoning, and computation: Fair description of associations: Fair Description of abnormal or psychotic thoughts: Denies today Judgment: Fair, improved Insight: Fair Orientation: X4. Recent and remote memory: Intact. Attention span and concentration: Decreased attention and concentration. Language: [place]onian. Fund of knowledge: Average based on interview. Mood: "Pretty good". Affect: Full, smiles and laughs, less paranoid DIAGNOSES: Schizophrenia per history Amphetamine use disorder Cannabis use disorder Cocaine use disorder Tobacco use disorder Rule out substance-induced psychotic disorder ASSESSMENT: Patient continues to improve on paliperidone 3 mg twice daily, continues to have some anxiety, paranoia is improved, no longer experiencing auditory or visual hallucinations, continues to have some bizarre thought process at times and aggressive dreams. He is excited to stay to allow for medication to stabilize condition in context of schizophrenia. MANAGEMENT PLAN: Continue paliperidone 3 mg p.o. twice daily, patient refuses IM QUINTANA, ordered x-ray for right elbow due to reported pain after hitting his elbow, spoke with hospitalist team to evaluate patient for elevated blood pressure and other medical comorbidities. TIME SPENT: 25 minutes. Vital Signs Vital Signs Date Time Temp Pulse Resp B/P (MAP) Pulse Ox O2 Delivery O2 Flow Rate FiO2 07/05/21 07:06 99.0 62 20 150/92 (111) 96 Room Air Current Medications Current Medications Medications (Trade) Dose Ordered Sig/Elbert Route PRN Reason Start Time Stop Time Status Last Admin Dose Admin Acetaminophen (Tylenol Tab) 650 mg Q6HP PRN PO HEADACHE or MILD DISCOMFORT 06/30/21 13:10 07/04/21 18:51 Al Hydrox/Mg Hydrox/Simethicone (Mylanta) 30 ml Q4HP PRN PO HEARTBURN/INDIGESTION 06/30/21 13:10 Haloperidol (Haldol) 5 mg STAT STAT IM 06/30/21 03:02 06/30/21 03:11 DC Home Med (Home Med List Complete!) ASDIRECTED XX 06/30/21 14:15 06/30/21 14:34 DC Lorazepam (Ativan) 2 mg STAT STAT IM 06/29/21 23:48 06/29/21 23:49 DC 06/30/21 00:11 Lorazepam (Ativan) 2 mg STAT STAT IV 06/30/21 01:26 06/30/21 01:27 DC 06/30/21 02:10 Lorazepam (Ativan) 2 mg STAT STAT IV 06/30/21 03:52 06/30/21 03:55 DC 06/30/21 03:05 Magnesium Hydroxide (Milk Of Magnesia) 30 ml DAILYPRN PRN PO CONSTIPATION 06/30/21 13:10 07/02/21 09:59 Nicotine (Nicoderm Cq 21mg) 1 patch DAILY TD 07/01/21 09:00 Paliperidone (Invega) 3 mg BID PO 07/02/21 21:00 07/05/21 10:19 Paliperidone (Invega) 3 mg QHS PO 06/30/21 21:00 07/02/21 15:45 DC 07/01/21 21:34 Risperidone (RisperDAL) 1 mg Q2HP PRN PO AGITATION 06/30/21 13:10 07/02/21 15:46 DC Trazodone HCl (Desyrel) 50 mg QHSP PRN PO INSOMNIA 06/30/21 13:10 07/04/21 21:13 Allergies Coded Allergies: Sulfa (Sulfonamide Antibiotics) (Verified Allergy, Unknown, 08/07/19) ANDRZEJ RODGERS MD Jul 05, 2021 12:57
[2021-07-05 15:30] LABS: BLOOD UREA NITROGEN 18 MG/DL (7-18); CALCIUM LEVEL 9.7 MG/DL (8.5-10.1); CARBON DIOXIDE LEVEL 27 MEQ/L (21-32); CHLORIDE LEVEL 104 MEQ/L (98-107); CREATININE FOR GFR 1.06 MG/DL (0.70-1.30); GLOMERULAR FILTRATION RATE > 60.0 (>60); GLUCOSE, FASTING 94 MG/DL (70-100); POTASSIUM SERUM 4.4 MEQ/L (3.5-5.1); SODIUM LEVEL 138 MEQ/L (136-145)
--- NOTE | 2021-07-05 15:58 | REP ---
INDICATION: elbow pain on supination. COMPARISON: None TECHNIQUE: AP and lateral views only FINDINGS: There is no gross osseous abnormality or evidence of a joint effusion. IMPRESSION: Negative limited two view exam. <Electronically signed by Joseph Sumner > 07/05/21 [id number]
--- NOTE | 2021-07-05 18:54 | HPEPDOC ---
General Date of Admission Jun 30, 2021 at 13:08 Date of Service: Jul 05, 2021 Chief Complaint The patient is a 36-year-old male admitted with a reason for visit of Psychotic Disorder. Source: Patient History of Present Illness Patient is 36 years old male with past medical history of polysubstance abuse, Schizophrenia presents with bizarre behavior at a gas station in context of polysubstance abuse including cocaine, cannabis, amphetamines per toxicology screen. Patient is bizarre, delusional, paranoid, experiences auditory visual hallucinations, internally preoccupied and disorganized, states he refuses medication options and discussion of treatments. During my interview patient complained of right elbow pain, he told me that he hit his right elbow when he fell down. Patient denied fever, chills, nausea vomiting diarrhea dysuria Home Medications Unable to Obtain Active Prescriptions or Reported Meds Allergies Coded Allergies: Sulfa (Sulfonamide Antibiotics) (Verified Allergy, Unknown, 08/07/19) Past Medical History Medical History Schizophrenia, polysubstance abuse Family History I personally reviewed family history and found not pertinent Social History * Smoker: current smoker Alcohol: Denies Drugs: cocaine, other (Amphetamines) A-FIB/CHADSVASC A-FIB History Current/History of A-Fib/PAF?: No Current PO Anticoag Therapy: No Age/Risk Factor Scoring CHADSVASC: CHADSVASC Response (Comments) Value Age Risk Factor Age < 65 years old 0 Gender Risk Factor Male 0 Hx of CHF No 0 Hx of HTN No 0 Hx of Stroke/TIA/or VTE No 0 Hx of Diabetes No 0 Hx of Vascular Disease No 0 Total 0 Review of Systems Constitutional: Denies: Chills, Fever Eyes: Denies: Pain ENT: Denies: Head Aches Skin: Denies: Rash Pulmonary: Denies: Dyspnea Cardiovascular: Denies: Chest Pain Gastrointestinal: Denies: Nausea Genitourinary: Denies: Dysuria Hematologic: Denies: Bruising Endocrine: Denies: Polydipsia Musculoskeletal: Reports: Other Symptoms (Right elbow pain) Neurological: Denies: Weakness Psych: Reports: Anxiety Physical Examination General Exam: Positive: Alert, Cooperative Eye Exam: Positive: PERRLA ENT Exam: Positive: Atraumatic Neck Exam: Positive: Supple; Negative: JVD Chest Exam: Positive: Clear to auscultation Heart Exam: Positive: Rate Normal Telemetry: Positive: No significant arrhythmia Abdomen Exam: Positive: Normal bowel sounds Extremity Exam: Positive: Tenderness (Over right elbow during extension) Skin Exam: Positive: Nl turgor and temperature Psych Exam: Positive: Oriented x 3 Vital Signs Vital Signs Date Time Temp Pulse Resp B/P (MAP) Pulse Ox O2 Delivery O2 Flow Rate FiO2 07/05/21 14:46 178/108 07/05/21 11:34 97.8 80 16 99 Room Air Laboratory Data Labs 24H Laboratory Tests 2 07/05/21 14:12: Anion Gap 7L, Glomerular Filtration Rate > 60.0, Calcium Level 9.7 CBC/BMP Laboratory Tests 07/05/21 14:12 Assessment/Plan Patient is 36 years old male with past medical history of polysubstance abuse, Schizophrenia presents with bizarre behavior at a gas station in context of polysubstance abuse including cocaine, cannabis, amphetamines per toxicology screen. Patient is bizarre, delusional, paranoid, experiences auditory visual hallucinations, internally preoccupied and disorganized, states he refuses medication options and discussion of treatments. During my interview patient complained of right elbow pain, he told me that he hit his right elbow when he fell down. Patient denied fever, chills, nausea vomiting diarrhea dysuria Problems (1) Psychosis Status: Resolved Problem Text: Defer treatment to psych team (2) Hypertension Status: Chronic Problem Text: Lisinopril 20 mg daily (3) Right elbow pain Status: Acute Problem Text: Continue Tylenol p.o. Lidocaine patch X-ray negative for fracture or dislocation Plan / VTE VTE Prophylaxis Ordered?: No VTE Exclusion Mechanical Proph: Low Risk for VTE MATEO CARLSON DO Jul 05, 2021 18:54
[2021-07-05] MEDS ORDERED: KETOROLAC TROMETHAMINE 10 MG TAB PO PRN (18:55)
[2021-07-05 19:04] VITALS: BP 144/82
[2021-07-05 20:09] VITALS: BP 163/99
[2021-07-05] MEDS ORDERED: **NOTE PATIENT COMMENT** MISC XX SCH (21:00)
[2021-07-06] MEDS: LIDOCAINE 5% (LIDODERM) PATCH TD SCH ×2 (09:00→13:26)
[2021-07-06] MEDS: NICOTINE 21MG/24HR 1 EA TRANSDERMAL TD SCH (09:00)
[2021-07-06] MEDS: PALIPERIDONE 3 MG ER TAB (INVEGA) PO SCH ×2 (09:00→13:22)
[2021-07-06] MEDS ORDERED: HOME MED LIST COMPLETE! XX SCH (12:15)
[2021-07-06 13:25] VITALS: BP 138/69
[2021-07-06] MEDS ORDERED: PALI1TAB2 PO (14:14)
[2021-07-06] MEDS ORDERED: NICO21PAT TD (14:14)
[2021-07-06] MEDS ORDERED: LIDO5TD TD (14:14)
[2021-07-06] MEDS ORDERED: LISI20TA33 PO (14:14)
--- NOTE | 2021-07-06 15:13 | MHDSPDOC ---
[facility] Discharge Summary Discharge Summary DATE OF ADMISSION: Jun 30, 2021 at 13:08 DATE OF DISCHARGE: July 06, 2021 Discharge diagnoses: Schizophrenia per history Amphetamine use disorder Cannabis use disorder Cocaine use disorder Tobacco use disorder Rule out substance-induced psychotic disorder Reason for admission: Patient is a 36 -year-old , male, who is a history of psychosis, amphetamine use, patient was brought to the ED via EMS after police were called to a gas station in [place] because patient was acting bizarrely. Patient reported to EMS that he had taken drugs that he fell on the ground, arrived to the ED with paranoia fearing that people organized to shoot him, patient was disorganized, tangential, talking to people that were not in the room per chart review. Patient denied SI, HI, when asked about the date, per chart review reported it was "the of the " and was somewhat cooperative to interview, but due to level disorganization did not comply with all questioning, screenings. Patient stated that she had auditory hallucinations of people telling the gun to kill him, also reports paranoia, reports he hears 1 good voice and tells him do good things, and one bad voice that tells him to do bad things including violence, but does not elaborate, states he does not want to hurt anyone and would not act on these voices. He then went on to talk about how he wanted to remain in another dimension, does not want to take medications offered when describing alternatives and treatments. Then goes on to talk about how there is a black mist in his room when she is angry, asks if I see this missed and later in the hallway was asking to go check out the mist in his room. Reports that Zyprexa and Invega did not work for him, however per most recent discharge from [facility] on February 11, 2020 had a good response to paliperidone 3 mg nightly for psychotic symptoms. Patient currently denies SI, HI, depression or anxiety symptoms. Was seen sleeping in his bed, reports sleep is okay and denies symptoms of terrell. Toxicology screen was positive for cocaine, cannabis, amphetamines. When asked about drug use states that he only takes stimulants including Adderall he can find on the street, meth. Denies acute physical complaints. Denies alcohol or benzodiazepine use. Vital signs: See below Consultants involved: See medical H&P by hospitalist Treatment and progress on the unit: Patient was admitted to the [facility] on a 9.39 legal status and was afforded the following treatment modalities: 1. Individual therapy 2. Group therapy 3. Medication management 4. Milieu therapy 5. Safe environment Hospital course: Patient was admitted to the [facility] on a 9.39 legal status. Was medically cleared prior to coming up to the [facility]. Toxicology screen was positive for cocaine, amphetamines, cannabis. Patient was started on paliperidone 3 mg p.o. nightly for psychosis, have been reporting hallucinations including auditory hallucinations, a good voice and a bad voice that tells him to do bad things, denied any intent or plan to harm others however, also reported bizarre delusions such as dark clouds which are evil and being able to see into another dimension, patient was also paranoid and spent most the time isolative to room, patient was started on paliperidone 3 mg nightly as he had a good response to this on previous admissions, hallucinations and paranoia improved, was more talkative on interview, less isolative to room, but continued to have bizarre delusions so paliperidone was increased to 3 mg twice daily for psychosis, with good response. Patient found medications beneficial and tolera maria elena them well. Denies mood anxiety and intrusive thoughts which improved with treatment. Patient attended groups daily during stay. Patient symptoms improved with treatment. On the days prior to discharge endorsed feeling somewhat anxious, blood pressure was elevated in the 150s over 90s, contacted hospitalist team to evaluate for blood pressure medications, lisinopril was incr eased to 20 mg p.o. daily when hospitalist team. Patient reported improvement of symptoms including headache, also reported some dizziness in the morning so trazodone was discontinued, reported limited benefit with medication. On day of discharge patient denied depression, anxiety, insomnia, suicidal or homicidal ideations intent or plan, hallucinations, delusions. Patient was discharged home with follow-up. Patient felt safe for discharge. Was offered continued stay on voluntary admission but refused. Discharge assessment: On today's interview patient is alert and oriented, dressed appropriately. Hygiene and grooming is well-kept. Smiles, laughs and jokes on approach and is pleasant and engaged on interview. Denies depression and anxiety. Denies suicidal homicidal ideation, intent or planning. Denies and is not observed with terrell or psychotic symptoms of delusions, hallu cinations, bizarre thinking, obsessions, paranoia, ruminations, illogical thoughts, flight of ideas or having poor insight or judgment. Patient has normal mentation, declines further hospitalization of voluntary status and meets criteria for discharge today, patient encouraged to return the hospital if symptoms worsen or change and encouraged to call unit if they feel they need pr ovider's questions to be answered or help with medications or care. Safety plan was coordinated with patient, plans to stay with family friend, says he will stay away from drugs and was made aware with education of the risks of taking cannabis and using stimulants in context of primary psychotic disorder including risk for danger to self and others, worsening hallucinations, worsening paranoia, worsening anxiety and depression. Mental status: Patient is a 36-year old male, who is sitting on bed, improved eye contact, improved hygiene, appears stated age Speech: Is normal rate, volume, amount, spontaneous Language skills are intact. Thought processes including: Linear, logical, goal directed. Thought content: Denies suicidal thoughts, auditory visual hallucination abstract reasoning, and computation: Fair description of associations: Fair Description of abnormal or psychotic thoughts: Denies today Judgment: Good Insight: Fair Orientation: X4. Recent and remote memory: Intact. Attention span and concentration: Decreased attention and concentration. Language: Occitan. Fund of knowledge: Average based on interview. Mood: "good". Affect: Euthymic, full, smiles and laughs, jokes appropriately Medications on discharge: -see medication reconciliation: CSSRS on discharge: Wish to be : No nonspecific active suicidal thoughts: No lifetime attempts: Denies, none indicated per chart review, unknown interrupted attempts: 0 aborted attempts: 0 preparatory acts or behavior: None Taking into consideration safety state, safety plan, (protective factors including good supports, compliance of medication, future oriented), status, modifiable, non-modifiable risk factors patient is at low risk on discharge for suicide according to Keith suicide evaluation. PLAN/FOLLOWUP ARRANGEMENTS: Follow Up Care Education Label * Mental Health Appt 1 * [facility] * Established With This Provider Yes * Therapist ROSAURA * Date Jul 11, 2021 * Time 11:00 * Address of Clinic or Practice [address] [place] [address] * Follow Up Care Education Label * Mental Health Appt 2 * [facility] * Established With This Provider Yes * Therapist ISAAC * Date Aug 03, 2021 * Time 13:00 * Address of Clinic or Practice [address] [facility] * Follow Up Care Education Label * Medical * Medical Follow Up [facility] * Established With This Provider Yes * Therapist DR. RODRIGUEZ * Date Jul 08, 2021 * Time 13:40 * Address of Clinic or Practice [address] [facility] * The amount of time spent in the coordination of care for this patient was approximately 40 minutes. ETOH/Disorder Med Rx ETOH/DRUG DISORDER RX: Offrd @ d/c & pt refused Vital Signs/I&Os Vital Signs Date Time Temp Pulse Resp B/P (MAP) Pulse Ox O2 Delivery O2 Flow Rate FiO2 07/06/21 13:25 138/69 07/05/21 20:09 97.2 101 20 99 Room Air Medications Scheduled Lidocaine (Lidocaine) 5% Adh..patch, 2 PATCH TD DAILY for pain, #7 apply once daily to R elbow for pain as needed Lisinopril (Lisinopril) 20 Mg Tablet, 20 MG PO DAILY for htn, #7 Nicotine (Nicotine Patch) 21 Mg Patch.td24, 1 PATCH TD DAILY for nicotine cravings, #7 Paliperidone (Paliperidone ER) 3 Mg Tab.er.24, 3 MG PO BID for psychosis, #14 Allergies Coded Allergies: Sulfa (Sulfonamide Antibiotics) (Verified Allergy, Unknown, 08/07/19) ANDRZEJ RODGERS MD Jul 06, 2021 15:13
== END 2021-07-06 15:38 | disposition home or self-care (01) | DRG 750 ==
LOC: M ED 22:30 → M ED INP 06-30 13:08 → M PSY 06-30 14:34
PROVIDERS: ADMIT Student in an Organized Health Care Education/Training Program; ATTEND Student in an Organized Health Care Education/Training Program
DX: F20.9 Schizophrenia, unspecified (principal); F12.151 Cannabis abuse with psychotic disorder with hallucinations; I10 Essential (primary) hypertension; F15.151 Other stimulant abuse with stimulant-induced psychotic disorder with hallucinations; F14.151 Cocaine abuse with cocaine-induced psychotic disorder with hallucinations; Z59.00 Homelessness unspecified; F17.200 Nicotine dependence, unspecified, uncomplicated; Z88.2 Allergy status to sulfonamides; M25.521 Pain in right elbow

== ENCOUNTER 2021-07-11 21:10 | Emergency (ER) | payer MEDICAID, OTHER ==
[~2021-07-11] VITALS: Ht 177.8 cm; Wt 100.0 kg
[~2021-07-11 21:10] MED LIST changes: +LIDO5TD TD; +LISI20TA33 PO; +NICO21PAT TD
--- OUTSIDE RECORDS SUMMARY | 2021-07-11 21:19 | CCD ---
Author Author [facility] Organization [facility] Address Unknown Phone Unavailable Support Name Relationship Address Phone TYLER TOBIAS Next Of Kin [address] [place] [address] UE Next Of Kin Unknown Unavailable [place] [address] V[place] [address] MEDICATION ASSISTANT, DUTY ON Next Of Kin [address] [place] [address] Re-disclosure Warning The records that you are [...] is protected by Article 27-F of the [facility] Public Health law. If you continue you may have access to information: Regarding HIV / AIDS; Provided by facilities licensed or operated by the [facility] Office of Mental Health; or Provided by the [facility] Office for People With Developmental Disabilities. If such information is present, then the following [facility] mandated warning applies: This information has been [...] law may result in a fine or snf sentence or both. A general authorization for the release of medical or other information is NOT sufficient authorization for further disc losure. 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 DEP [id number] SP [id number] DEPARTMENT OF CORRECTIONS [id number] S [id number] DEPARTMENT OF CORRECTIONS UNAVAILABLE S UNAVAILABLE [place] DIRECTOR ACCOUNT MANAGEMENT DEPT [id number] SP [id number] Problems, Conditions, and Diagnoses No Information Surgeries/Procedures No Information Results ID Date Data Source [id number] 06/30/2021 02:05:00 AM EDT [facility] Name Value Range Interpretation Code Description Data Mary rce(s) Supporting Document(s) SARS coronavirus 2 RNA [Presence] in Res piratory specimen by ANA M with probe detection NEGATIVE [facility] This lab was ordered by [facility] a nd reported by [facility]. ID Date Data Source [id number] 03/23/2021 06:00:00 AM EDT [facility] Name Value Range Interpretation Code Description Data Mary rce(s) Supporting Document(s) SARS-CoV-2 (COVID-19) RNA [Presence] in Respiratory specimen by ANA M with probe detection Not Detected [facility] This lab was ordered by [facility] eROI and reported by [facility]. ID Date Data Source [id number] 12/16/2020 06:00:00 AM EDT [facility] Name Value Range Interpretation Code Description Data Mary rce(s) Supporting Document(s) SARS-CoV-2 (COVID-19) RNA [Presence] in Respiratory specimen by ANA M with probe detection Not Detected [facility] This lab was ordered by [facility] and reported by [facility]. ID Date Data Source [id number] 10/05/2020 12:00:00 AM EST [facility] Name Value Range Interpretation Code Description Data Mary rce(s) Supporting Document(s) SARS-CoV-2 (COVID-19) RNA [Presence] in Respiratory specimen by ANA M with probe detection Not Detected [facility] This lab was ordered by [facility] and reported by [facility]. Procedure Social History No Information
[2021-07-11 22:34] LABS: HEMATOCRIT 40.5 % (42.0-52.0); HEMOGLOBIN 13.8 g/dl (13.5-17.5); MEAN CORPUSCULAR HEMOGLOBIN 31.7 pg (27.0-33.0); MEAN CORPUSCULAR HGB CONC 34.1 g/dl (32.0-36.5); MEAN CORPUSCULAR VOLUME 92.9 fl (80.0-96.0); PLATELET COUNT, AUTOMATED 212 10^3/uL (150-450); RED BLOOD COUNT 4.36 10^6/uL (4.30-6.10); WHITE BLOOD COUNT 4.2 10^3/uL (4.0-10.0)
[2021-07-11 23:02] LABS: AMPHETAMINES LEVEL URINE POSITIVE (NEGATIVE); BARBITURATES URINE NEGATIVE (NEGATIVE); BENZODIAZEPINES URINE NEGATIVE (NEGATIVE); CANNABINOIDS URINE POSITIVE (NEGATIVE); COCAINE METABOLITE URINE NEGATIVE (NEGATIVE); METHADONE URINE NEGATIVE (NEGATIVE); OPIATES URINE NEGATIVE (NEGATIVE); PHENCYCLIDINE URINE NEGATIVE (NEGATIVE)
[2021-07-11 23:14] LABS: ACETAMINOPHEN LEVEL < 2.0 UG/ML (10.0-30.0); ALBUMIN 3.8 GM/DL (3.2-5.2); ALT/SGPT 37 U/L (12-78); BILIRUBIN,DIRECT 0.1 MG/DL (0.0-0.2); BILIRUBIN,TOTAL 0.3 MG/DL (0.2-1.0); BLOOD UREA NITROGEN 18 MG/DL (7-18); CALCIUM LEVEL 8.8 MG/DL (8.5-10.1); CARBON DIOXIDE LEVEL 25 MEQ/L (21-32); CHLORIDE LEVEL 103 MEQ/L (98-107); CREATININE FOR GFR 1.34 MG/DL (0.70-1.30); ETHYL ALCOHOL (ETHANOL) < 0.003 % (0.000-0.010); GLOMERULAR FILTRATION RATE > 60.0 (>60); GLUCOSE, FASTING 99 MG/DL (70-100); SALICYLATE LEVEL < 1.7 MG/DL (5.0-30.0); SODIUM LEVEL 139 MEQ/L (136-145); THYROID STIMULATING HORMONE 0.529 uIU/ML (0.358-3.740); TOTAL PROTEIN 7.7 GM/DL (6.4-8.2)
--- OUTSIDE RECORDS SUMMARY | 2021-07-12 00:27 | CCD ---
Author Author [facility] Organization [facility] Address Unknown Phone Unavailable Support Name Relationship Address Phone TYLER TOBIAS Next Of Kin [address] [place] [address] UE Next Of Kin Unknown Unavailable NIRANJAN [place] [address] VILL[place] [address] PYROTECHNIC MIXER, DUTY ON Next Of Kin [address] [place] [address] Re-disclosure Warning The records that you are [...] is protected by Article 27-F of the [facility] Public Health law. If you continue you may have access to information: Regarding HIV / AIDS; Provided by facilities licensed or operated by the [facility] Office of Mental Health; or Provided by the [facility] Office for People With Developmental Disabilities. If such information is present, then the following [facility] mandated warning applies: This information has been [...] law may result in a fine or retirement sentence or both. A general authorization for the release of medical or other information is NOT sufficient authorization for further disc losure. Medications No Information Insurance Providers Payer name Policy type / Coverage type Policy ID Covered alliance party ID Covered alliance party's relationship to correa Policy [place] Plan Information Medicaid P [id number] S [id number] EMEDNY [id number] SP [id number] MEDICAID [id number] SP [id number] Medicaid P [id number] S [id number] Medicaid Dental S [id number] S [id number] ARIS [id number] SP [id number] SELF PAY ONLY NONE SP NONE SELF PAY UNAVAILABLE SP UNAVAILA BLE [facility] LIFE SKILLS TEACHER DEPT [id number] SP [id number] [facility] LOGGING EQUIPMENT MECHANIC DEP [id number] SP [id number] DEPARTMENT OF CORRECTIONS [id number] S [id number] DEPARTMENT OF CORRECTIONS UNAVAILABLE S UNAVAILABLE [facility] [facility] LIFE SKILLS TEACHER DEPT [id number] SP [id number] Problems, Conditions, and Diagnoses No Information Surgeries/Procedures No Information Results ID Date Data Source [id number] 06/30/2021 02:05:00 AM EDT [facility] Name Value Range Interpretation Code Description Data Mary rce(s) Supporting Document(s) SARS coronavirus 2 RNA [Presence] in Res piratory specimen by ANA M with probe detection NEGATIVE [facility] This lab was ordered by [facility] a nd reported by [facility]. ID Date Data Source [id number] 03/23/2021 06:00:00 AM EDT [facility] Name Value Range Interpretation Code Description Data Mary rce(s) Supporting Document(s) SARS-CoV-2 (COVID-19) RNA [Presence] in Respiratory specimen by ANA M with probe detection Not Detected [facility] This lab was ordered by [facility] and reported by [facility]. ID Date Data Source [id number] 12/16/2020 06:00:00 AM EDT [facility] Name Value Range Interpretation Code Description Data Mary rce(s) Supporting Document(s) SARS-CoV-2 (COVID-19) RNA [Presence] in Respiratory specimen by ANA M with probe detection Not Detected [facility] This lab was ordered by [facility] and reported by [facility]. ID Date Data Source [id number] 10/05/2020 12:00:00 AM EST [facility] Name Value Range Interpretation Code Description Data Mary rce(s) Supporting Document(s) SARS-CoV-2 (COVID-19) RNA [Presence] in Respiratory specimen by ANA M with probe detection Not Detected [facility] This lab was ordered by [facility] and reported by [facility]. Procedure Social History No Information
[2021-07-12] MEDS ORDERED: NICO1DIS12 TD (06:52)
[2021-07-12] MEDS ORDERED: LISI20TA33 PO (06:52)
[2021-07-12] MEDS ORDERED: LIDO5TD TOP (06:52)
[2021-07-12] MEDS ORDERED: INVE3TAB2 PO (06:52)
[2021-07-12] MEDS ORDERED: HOME MED LIST COMPLETE! XX SCH (06:55)
--- NOTE | 2021-07-12 07:59 | MHCRPDOC ---
[facility] Consultation Consultation DATE OF CONSULTATION: 07/12/21 CONSULTATION REQUESTED BY: ED team REASON FOR CONSULTATION: Patient reporting psychotic symptoms and seeking housing due to homelessness RELEVANT HISTORY: Patient is a 36 -year-old , male, who is a history of psychosis, amphetamine use, was brought by police due to disturbance DSS housing. Patient denies psychotic symptoms including hallucinations, delusions or paranoia, states, initially stated he was hearing voices but later stated he was just looking for housing and that he was not experiencing psychotic symptoms, asked for dose of his medication needs to be sure that social work arrange so that his medications are available, is agreeable to return to [facility] to seek housing. Patient denies suicidal ideation, intent or plan. Denies homicidal ideation, intent or plan. Initially stated that he had thoughts of harming others, later to state that this was only so he could seek housing that he is not having these thoughts and feels safe to return home and will not harm others, does not have access to weapons. Depression (2 or more weeks): denies Colleen (4 or more days of): denies Psychosis: denies: auditory hallucination, visual hallucinations, delusions, paranoia, or disorganization PTSD: history of trauma Anxiety: gen/non-specific anxiety Anxiety/ 6 months or more of: fair concentrating, denies sleep disturbance, has hx of personality cluster A,BC symptoms (History of stimulant use, history of snf time reported) Past Psychiatric History Previous Psychiatric Diagnosis: History of schizophrenia and polysubstance abuse Previous Psychiatric Admissions: At least 4 to [facility] for psychosis in usual context of amphetamine use Suicide Attempts: Denies, none indicated per chart review, unknown Psychiatric Follow-up: Denies Psychiatric medications: Paliperidone 3 mg twice daily, states that he is willing to continue to take this medication Past Medical History Medical Problems Denies Head Injury: No Seizures: No Hospitalizations: No Surgeries: No Family Medical/Psychiatric HX Medical Problems Denies, unknown, history of polysubstance abuse Addiction History cocaine, methamphetamines, other (Cannabis) Social History Childhood: Unclear reality based, grew up in [place] with 5 siblings and was the oldest child reportedly Abuse/Trauma: Unknown Current Living Situation: Reports homeless Education: Unknown Employment: Reports unemployed Social Support: Denies any close contacts Legal: Reports history of snf time, is vague, unclear reality based Marital: Reports , currently single MENTAL STATUS EXAMINATION: Patient is a 36-year old -Mexican male, who is in no acute distress, appears stated age, good hygiene, good eye contact, dressed in hospital clothing, lying in bed Speech is normal rate rhythm and volume. Language skills are fair Thought processes including: Linear and logical, goal-directed. Thought content: Denies suicidal ideations, intent or plan. Denies homicidal ideations, intent or plan Abstract reasoning, and computation: Good Description of associations: Good Description of abnormal or psychotic thoughts: Denies, states he has made statements about having hallucinations in context of seeking housing Judgment: Fair Insight: Good Orientation x4 Recent and remote memory: intact Attention span and concentration: Fair Language: Bruneian Fund of knowledge: Average based on interview. Mood: "fine" Affect: Euthymic, full, appropriate, mood congruent DIAGNOSIS: Schizophrenia per history Amphetamine use disorder Cannabis use disorder Cocaine use disorder Tobacco use disorder PLAN: 1. Patient does not meet criteria for involuntary admission, refuses voluntary admission, is agreeable to return to [facility] housing and continue medications including paliperidone 3 mg twice daily, should receive dose with medication before leaving the ED, safety plan should be arranged to ensure safety, she does have an appointment arranged within 5 days with outpatient provider, was previously scheduled to see [facility] and had not followed up Vital Signs Vital Signs Date Time Temp Pulse Resp B/P (MAP) Pulse Ox O2 Delivery O2 Flow Rate FiO2 07/11/21 22:14 99.9 92 18 133/107 (116) 99 Laboratory Data 24H Labs Laboratory Tests 2 07/11/21 22:16: Nucleated Red Blood Cells % (auto) 0.0, Anion Gap 11, Glomerular Filtration Rate > 60.0, Calcium Level 8.8, Total Bilirubin 0.3, Direct Bilirubin 0.1, Aspartate Amino Transf (AST/SGOT) 38H, Alanine Aminotransferase (ALT/SGPT) 37, Alkaline Phosphatase 49, Total Protein 7.7, Albumin 3.8, Albumin/Globulin Ratio 1.0, Thyroid Stimulating Hormone (TSH) 0.529, Salicylates Level < 1.7L, Urine Opiates Screen NEGATIVE, Urine Methadone Screen NEGATIVE, Acetaminophen Level < 2.0L, Urine Barbiturates Screen NEGATIVE, Urine Phencyclidine Screen NEGATIVE, Urine Amphetamines Screen POSITIVEH, Urine Benzodiazepines Screen NEGATIVE, Urine Cocaine Metabolite Screen NEGATIVE, Urine Cannabinoids Screen POSITIVEH, Ethyl Alcohol Level < 0.003 Home Medications Current Medications Current Medications Medications (Trade) Dose Ordered Sig/Elbert Route PRN Reason Start Time Stop Time Status Last Admin Dose Admin Home Med (Home Med List Complete!) ASDIRECTED XX 07/12/21 06:55 07/12/21 06:56 DC Paliperidone (Invega) 3 mg BID PO 07/12/21 09:00 Scheduled Lisinopril (Lisinopril) 20 Mg Tablet, 20 MG PO DAILY, (Reported) Nicotine (Nicotine Patch) 21 Mg Patch.td24, 21 MG TD DAILY, (Reported) Paliperidone (Invega) 3 Mg Tab.er.24, 3 MG PO BID, (Reported) Scheduled PRN Lidocaine (Lidocaine) 5% Adh..patch, 2 PATCH TOP DAILY PRN for PAIN LEVEL 1-4, (Reported) APPLY TO RIGHT ELBOW Allergies Coded Allergies: Sulfa (Sulfonamide Antibiotics) (Verified Allergy, Unknown, 08/07/19) ANDRZEJ RODGERS MD Jul 12, 2021 07:59
[2021-07-12 08:11] VITALS: BP 130/69
[2021-07-12] MEDS ORDERED: PALIPERIDONE 3 MG ER TAB (INVEGA) PO SCH (09:00)
== END 2021-07-12 08:57 | disposition home or self-care (01) ==
LOC: M ED 21:10
DX: F33.9 Major depressive disorder, recurrent, unspecified (principal); Z88.1 Allergy status to other antibiotic agents; Z88.2 Allergy status to sulfonamides; F11.20 Opioid dependence, uncomplicated; F17.210 Nicotine dependence, cigarettes, uncomplicated

== ENCOUNTER 2021-07-12 12:37 | Emergency (ER) | payer MEDICAID, OTHER ==
[~2021-07-12] VITALS: Ht 177.8 cm; Wt 102.3 kg
[~2021-07-12 12:37] MED LIST changes: +INVE3TAB2 PO; +LIDO5TD TOP; +NICO1DIS12 TD
--- OUTSIDE RECORDS SUMMARY | 2021-07-12 12:52 | CCD ---
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 If you continue you may have access to information: Regarding HIV / AIDS; Provided by facilities licensed or operated by the [facility] Office of Mental Health; or Provided by the [facility] Office for People With Developmental Disabilities. If such information is present, then the following [facility] mandated warning applies: This information has [...] law may result in a fine or alf sentence or both. A general authorization for the release of medical or other information is NOT sufficient authorization for further disc losure. 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 [id number] SP [id number] DEPARTMENT OF CORRECTIONS [id number] S [id number] DEPARTMENT OF CORRECTIONS UNAVAILABLE S UNAVAILABLE BOSS CO 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 ID Date Data Source [id number] 03/23/2021 06:00:00 AM EDT [facility] Name Value Range Interpretation Code Description Data Mary rce(s) Supporting Document(s) SARS-CoV-2 (COVID-19) RNA [Presence] in Respiratory specimen by ANA M with probe detection Not Detected [facility] This lab was ordered by [facility] and reported by [facility]. ID Date Data Source [id number] 12/16/2020 06:00:00 AM EDT [facility] Name Value Range Interpretation Code Description Data Mary rce(s) Supporting Document(s) SARS-CoV-2 (COVID-19) RNA [Presence] in Respiratory specimen by ANA M with probe detection Not Detected [facility] This lab was ordered by [facility] and reported by [facility]. ID Date Data Source [id number] 10/05/2020 12:00:00 AM EST [facility] Name Value Range Interpretation Code Description Data Mary rce(s) Supporting Document(s) SARS-CoV-2 (COVID-19) RNA [Presence] in Respiratory specimen by ANA M with probe detection Not Detected [facility] This lab was ordered by [email or web address] and reported by [facility]. Procedure Social History No Information
[2021-07-12] MEDS ORDERED: LORazepam 2 MG/ML VIAL IM ONE (13:25)
[2021-07-12] MEDS ORDERED: HALOPERIDOL 5MG/ML VIAL (J1630 PER 1) IM ONE (13:25)
[2021-07-12] MEDS ORDERED: diphenhydrAMINE 50MG/ML VIAL (J1200) IM ONE (13:25)
--- NOTE | 2021-07-12 14:35 | REP ---
INDICATION: covid. COMPARISON: 12/09/2019 TECHNIQUE: Portable FINDINGS: The technique utilized in obtaining the radiograph has magnified the cardiac silhouette and accentuated the interstitial markings. Cardiomediastinal silhouette is within normal limits. Lung limon are clear. The pleural angles are sharp. The osseous structures are stable and intact. IMPRESSION: No evidence of acute cardiopulmonary disease. <Electronically signed by Joseph Sumner > 07/12/21 [id number]
[2021-07-12 14:39] LABS: BASO % 0.4 % (0.0-1.0); EOS % 0.2 % (0.0-3.0); HEMATOCRIT 40.9 % (42.0-52.0); HEMOGLOBIN 13.8 g/dl (13.5-17.5); LYMPH # 1.1 10^3/uL (1.5-5.0); LYMPH % 23.6 % (24.0-44.0); MEAN CORPUSCULAR HEMOGLOBIN 31.3 pg (27.0-33.0); MEAN CORPUSCULAR HGB CONC 33.7 g/dl (32.0-36.5); MEAN CORPUSCULAR VOLUME 92.7 fl (80.0-96.0); MONO # 0.8 10^3/uL (0.0-0.8); MONO % 17.6 % (2.0-8.0); NEUTROPHILS # 2.6 10^3/uL (1.5-8.5); NEUTROPHILS % 57.5 % (36.0-66.0); PLATELET COUNT, AUTOMATED 211 10^3/uL (150-450); RED BLOOD COUNT 4.41 10^6/uL (4.30-6.10); WHITE BLOOD COUNT 4.5 10^3/uL (4.0-10.0)
[2021-07-12 14:47] LABS: ALBUMIN 3.8 GM/DL (3.2-5.2); ALT/SGPT 38 U/L (12-78); BILIRUBIN,TOTAL 0.3 MG/DL (0.2-1.0); BLOOD UREA NITROGEN 17 MG/DL (7-18); C REACTIVE PROTEIN QUANTITATIV 0.78 MG/DL (0.00-0.30); CALCIUM LEVEL 8.9 MG/DL (8.5-10.1); CARBON DIOXIDE LEVEL 27 MEQ/L (21-32); CHLORIDE LEVEL 106 MEQ/L (98-107); CREATININE FOR GFR 1.16 MG/DL (0.70-1.30); GLOMERULAR FILTRATION RATE > 60.0 (>60); GLUCOSE, FASTING 84 MG/DL (70-100); LDH LACTATE DEHYDROGENASE 218 U/L (87-241); POTASSIUM SERUM 4.2 MEQ/L (3.5-5.1); SODIUM LEVEL 137 MEQ/L (136-145); TOTAL PROTEIN 7.3 GM/DL (6.4-8.2)
[2021-07-12] MEDS ORDERED: ACETAMINOPHEN 500 MG TAB PO ONE (16:55)
[2021-07-12] MEDS ORDERED: NS 1,000 ML IV SCH (18:30)
[2021-07-12] MEDS ORDERED: ALBUTEROL SULFATE 2.5 MG/0.5 ML INH NEB SOLN INH PRN (18:30)
[2021-07-12] MEDS ORDERED: diphenhydrAMINE 50MG/ML VIAL (J1200) IV PRN (18:30)
[2021-07-12] MEDS ORDERED: ALBUTEROL 90 MCG/ACT 8GM HFA INHALER INH PRN (18:30)
[2021-07-12] MEDS ORDERED: ACETAMINOPHEN TAB 650MG DOSE (2X325MG) PO PRN (18:30)
[2021-07-12] MEDS ORDERED: BAMLANIVIMAB 700 MG, ETESEVIMAB 1,400 MG in NS 250 ML IV ONE (18:30)
[2021-07-12] MEDS ORDERED: methylPREDNISolone 125MG 2ML VIAL IV PRN (18:30)
[2021-07-12] MEDS ORDERED: EPINEPHrine INJ 1 MG/ML 1ML AMP IM PRN (18:30)
--- NOTE | 2021-07-12 18:38 | IPNPDOC ---
Text Note Date of Service The patient was seen on 07/12/21. NOTE Patient is a 56 years old male with past medical history of psych diseases in cluding bipolar presented to hospital with generalized weakness. Patient was tested positive for COVID-19 physical exam pertinent for diminished lung sounds bilaterally. Patient signed consent form for monoclonal antibody infusion VS,Fishbone, I+O VS, Fishbone, I+O Laboratory Tests 07/12/21 14:18 Vital Signs Date Time Temp Pulse Resp B/P (MAP) Pulse Ox O2 Delivery O2 Flow Rate FiO2 07/12/21 12:37 98.4 91 19 140/87 (104) 96 Room Air MATEO CARLSON DO Jul 12, 2021 18:38
[2021-07-12] MEDS ORDERED: CASIRIVIMAB (REGN10933) 600 MG, IMDEVIMAB (REGN10987) 600 MG in NS 250 ML IV ONE (21:00)
[2021-07-13 07:52] VITALS: BP 123/74
== END 2021-07-13 07:53 | disposition home or self-care (01) ==
LOC: M ED 12:37
DX: R05.9 Cough, unspecified (principal); U07.1 COVID-19; Z88.1 Allergy status to other antibiotic agents; Z88.2 Allergy status to sulfonamides

== ENCOUNTER 2021-07-13 08:30 | Outpatient (CLI) | payer OTHER ==
[~2021-07-13] VITALS: Ht 180.3 cm; Wt 91.0 kg
[2021-07-13 08:22] VITALS: BP 140/77
[~2021-07-13 08:30] MED LIST changes: +ACETAMINOPHEN TAB 650MG DOSE (2X325MG) PO PRN; +ALBUTEROL 90 MCG/ACT 8GM HFA INHALER INH PRN; +ALBUTEROL SULFATE 2.5 MG/0.5 ML INH NEB SOLN INH PRN; +BAMLANIVIMAB 700 MG, ETESEVIMAB 1,400 MG in NS 250 ML IV ONE; +CASIRIVIMAB (REGN10933) 600 MG, IMDEVIMAB (REGN10987) 600 MG in NS 250 ML IV ONE; +EPINEPHrine INJ 1 MG/ML 1ML AMP IM PRN; +NS 1,000 ML IV SCH; +diphenhydrAMINE 50MG/ML VIAL (J1200) IV PRN; +methylPREDNISolone 125MG 2ML VIAL IV PRN
[2021-07-13 08:52] VITALS: BP 129/78
[2021-07-13 09:22] VITALS: BP 153/71
[2021-07-13 10:22] VITALS: BP 136/84
== END 2021-07-13 10:22 | disposition home or self-care (01) ==
LOC: M OPCLI4PR 08:30
PROVIDERS: ATTEND Internal Medicine
DX: U07.1 COVID-19 (principal); Z88.2 Allergy status to sulfonamides

== ENCOUNTER 2021-07-25 04:21 | Observation (INO) | payer MEDICAID ==
[~2021-07-25] VITALS: Ht 175.3 cm; Wt 98.6 kg
[~2021-07-25 04:21] MED LIST changes: -ACETAMINOPHEN TAB 650MG DOSE (2X325MG) PO PRN; -ALBUTEROL 90 MCG/ACT 8GM HFA INHALER INH PRN; -ALBUTEROL SULFATE 2.5 MG/0.5 ML INH NEB SOLN INH PRN; -BAMLANIVIMAB 700 MG, ETESEVIMAB 1,400 MG in NS 250 ML IV ONE; -CASIRIVIMAB (REGN10933) 600 MG, IMDEVIMAB (REGN10987) 600 MG in NS 250 ML IV ONE; -EPINEPHrine INJ 1 MG/ML 1ML AMP IM PRN; -NS 1,000 ML IV SCH; -diphenhydrAMINE 50MG/ML VIAL (J1200) IV PRN; -methylPREDNISolone 125MG 2ML VIAL IV PRN
[2021-07-25] MEDS ORDERED: NS 1,000 ML IV ONE (05:45)
[2021-07-25 05:53] LABS: BASO % 0.6 % (0.0-1.0); EOS % 0.6 % (0.0-3.0); HEMATOCRIT 41.3 % (42.0-52.0); HEMOGLOBIN 14.3 g/dl (13.5-17.5); LYMPH # 2.4 10^3/uL (1.5-5.0); MEAN CORPUSCULAR HEMOGLOBIN 31.7 pg (27.0-33.0); MEAN CORPUSCULAR HGB CONC 34.6 g/dl (32.0-36.5); MEAN CORPUSCULAR VOLUME 91.6 fl (80.0-96.0); MONO # 0.9 10^3/uL (0.0-0.8); NEUTROPHILS # 3.7 10^3/uL (1.5-8.5); PLATELET COUNT, AUTOMATED 391 10^3/uL (150-450); RED BLOOD COUNT 4.51 10^6/uL (4.30-6.10); WHITE BLOOD COUNT 7.1 10^3/uL (4.0-10.0)
[2021-07-25 06:18] LABS: ACETAMINOPHEN LEVEL < 2.0 UG/ML (10.0-30.0); ALBUMIN 3.9 GM/DL (3.2-5.2); ALT/SGPT 28 U/L (12-78); BILIRUBIN,DIRECT 0.1 MG/DL (0.0-0.2); BILIRUBIN,TOTAL 0.7 MG/DL (0.2-1.0); BLOOD UREA NITROGEN 11 MG/DL (7-18); CALCIUM LEVEL 9.8 MG/DL (8.5-10.1); CARBON DIOXIDE LEVEL 28 MEQ/L (21-32); CHLORIDE LEVEL 104 MEQ/L (98-107); CREATININE FOR GFR 1.23 MG/DL (0.70-1.30); ETHYL ALCOHOL (ETHANOL) < 0.003 % (0.000-0.010); GLOMERULAR FILTRATION RATE > 60.0 (>60); GLUCOSE, FASTING 94 MG/DL (70-100); POTASSIUM SERUM 4.5 MEQ/L (3.5-5.1); SALICYLATE LEVEL < 1.7 MG/DL (5.0-30.0); SODIUM LEVEL 138 MEQ/L (136-145); TOTAL PROTEIN 8.3 GM/DL (6.4-8.2)
[2021-07-25 06:24] LABS: VENOUS BASE EXCESS -1.1 (-2.0-2.0); VENOUS HCO3 28.1 MEQ/L (23.0-27.0); VENOUS O2 SATURATION 70.3 % (60.0-80.0); VENOUS PARTIAL PRESSURE CO2 66.9 mmHg (38.0-50.0); VENOUS PARTIAL PRESSURE O2 41.6 mmHg (30.0-50.0); VENOUS PH 7.241 UNITS (7.330-7.430); VENOUS STANDARD HCO3 22.9 MEQ/L; VENOUS TOTAL CO2 30.1 MEQ/L (24.0-28.0)
[2021-07-25] MEDS ORDERED: methylPREDNISolone 125MG 2ML VIAL IV ONE (07:20)
[2021-07-25] MEDS: COMBIVENT RESPIMAT 100-20MCG INHALER 4GM INH SCH ×3 (07:35→07:55)
[2021-07-25 08:27] LABS: RSV AMPLIFICATION NEGATIVE (NEGATIVE)
[2021-07-25] MEDS: NICOTINE 21MG/24HR 1 EA TRANSDERMAL TD SCH (09:00)
[2021-07-25] MEDS: PALIPERIDONE 3 MG ER TAB (INVEGA) PO SCH ×2 (09:00→21:00)
[2021-07-25] MEDS ORDERED: MED REC COMMENT (09:11)
[2021-07-25] MEDS ORDERED: HOME MED LIST COMPLETE! XX SCH (09:15)
[2021-07-25] MEDS ORDERED: LIDOCAINE 5% (LIDODERM) PATCH TOP PRN (09:45)
[2021-07-25] MEDS ORDERED: LORazepam 2 MG/ML VIAL IV PRN (10:00)
[2021-07-25] MEDS: NS 1,000 ML IV SCH ×2 (10:42→20:23)
[2021-07-25 10:59] LABS: VENOUS BASE EXCESS 1.5 (-2.0-2.0); VENOUS HCO3 26.9 MEQ/L (23.0-27.0); VENOUS O2 SATURATION 96.7 % (60.0-80.0); VENOUS PARTIAL PRESSURE CO2 44.9 mmHg (38.0-50.0); VENOUS PARTIAL PRESSURE O2 86.1 mmHg (30.0-50.0); VENOUS PH 7.395 UNITS (7.330-7.430); VENOUS STANDARD HCO3 25.8 MEQ/L; VENOUS TOTAL CO2 28.3 MEQ/L (24.0-28.0)
[2021-07-25 13:30] VITALS: BP 127/77
[2021-07-25 14:00] VITALS: BP 121/70
[2021-07-25 16:00] VITALS: BP 119/64
[2021-07-25 20:00] VITALS: BP 127/79
[2021-07-26] VITALS: BP 117/56
[2021-07-26 04:00] VITALS: BP 111/61
[2021-07-26] MEDS: NS 1,000 ML IV SCH (06:10)
[2021-07-26 06:31] LABS: HEMATOCRIT 38.9 % (42.0-52.0); HEMOGLOBIN 13.5 g/dl (13.5-17.5); MEAN CORPUSCULAR HEMOGLOBIN 31.5 pg (27.0-33.0); MEAN CORPUSCULAR HGB CONC 34.7 g/dl (32.0-36.5); MEAN CORPUSCULAR VOLUME 90.9 fl (80.0-96.0); PLATELET COUNT, AUTOMATED 347 10^3/uL (150-450); RED BLOOD COUNT 4.28 10^6/uL (4.30-6.10); WHITE BLOOD COUNT 11.1 10^3/uL (4.0-10.0)
[2021-07-26 07:03] LABS: ALT/SGPT 28 U/L (12-78); BILIRUBIN,TOTAL 0.3 MG/DL (0.2-1.0); BLOOD UREA NITROGEN 19 MG/DL (7-18); CALCIUM LEVEL 8.7 MG/DL (8.5-10.1); CARBON DIOXIDE LEVEL 28 MEQ/L (21-32); CHLORIDE LEVEL 108 MEQ/L (98-107); CREATININE FOR GFR 1.01 MG/DL (0.70-1.30); GLOMERULAR FILTRATION RATE > 60.0 (>60); GLUCOSE, FASTING 102 MG/DL (70-100); MAGNESIUM LEVEL 2.3 MG/DL (1.8-2.4); POTASSIUM SERUM 4.3 MEQ/L (3.5-5.1); SODIUM LEVEL 140 MEQ/L (136-145); TOTAL PROTEIN 7.2 GM/DL (6.4-8.2)
[2021-07-26 07:35] VITALS: BP 148/79
[2021-07-26] MEDS ORDERED: ENOXAPARIN 40MG/0.4ML SYRINGE (J1650 PER 10MG) SC SCH (09:00)
[2021-07-26] MEDS: PALIPERIDONE 3 MG ER TAB (INVEGA) PO SCH (09:00)
[2021-07-26] MEDS: NICOTINE 21MG/24HR 1 EA TRANSDERMAL TD SCH (09:00)
[2021-07-26 11:38] VITALS: BP 139/79
[2021-07-26 14:49] VITALS: BP 138/77
== END 2021-07-26 15:00 ==
LOC: M ED 04:21 → INTOOBSV 04:22 → M ED INP 04:22 → UNDOADMIN 09:55 → M ED INP 09:55 → ENRESERV 12:00 → M 4MAIN 13:18 → M ED INP 13:18 → UNDODISIN 07-26 15:00
PROVIDERS: ADMIT Internal Medicine; ATTEND Internal Medicine
DX: T43.502A Poisoning by unspecified antipsychotics and neuroleptics, intentional self-harm, initial encounter (principal); R45.851 Suicidal ideations; F20.9 Schizophrenia, unspecified; F17.210 Nicotine dependence, cigarettes, uncomplicated; Z79.899 Other long term (current) drug therapy; Z88.2 Allergy status to sulfonamides; I10 Essential (primary) hypertension; F15.10 Other stimulant abuse, uncomplicated; F12.10 Cannabis abuse, uncomplicated; F14.10 Cocaine abuse, uncomplicated; T14.91XA Suicide attempt, initial encounter; U07.1 COVID-19
CPT/HCPCS: 36415; 36600; 71045; 80048; 80053; 80076; 80143; 82077; 82550; 82803; 83735; 84443; 85025; 85027; 87631; 93005; 93041; 94640; 94760; 99285; J2930

== ENCOUNTER 2021-07-26 12:46 | Inpatient (IN) | payer MEDICAID ==
[~2021-07-26] VITALS: Ht 175.3 cm; Wt 97.8 kg
[~2021-07-26 12:46] MED LIST changes: +MED REC COMMENT
[2021-07-26] MEDS ORDERED: traZODone 50 MG TAB PO PRN (13:00)
[2021-07-26] MEDS ORDERED: IBUPROFEN 400MG TAB PO PRN (13:00)
[2021-07-26] MEDS ORDERED: MOM 30ML SUSPENSION UDC PO PRN (13:00)
[2021-07-26] MEDS ORDERED: LORazepam 1 MG TAB PO PRN (13:00)
[2021-07-26] MEDS ORDERED: LIDOCAINE 5% (LIDODERM) PATCH TD PRN (13:00)
[2021-07-26] MEDS ORDERED: MAALOX 30 ML SUSP *UDC PO PRN (13:00)
[2021-07-26 15:24] VITALS: BP 125/88
[2021-07-26] MEDS: PALIPERIDONE 3 MG ER TAB (INVEGA) PO SCH (21:00)
[2021-07-26] MEDS: **NOTE PATIENT COMMENT** MISC XX SCH (21:00)
[2021-07-27 06:37] VITALS: BP 132/75
[2021-07-27] MEDS: NICOTINE 21MG/24HR 1 EA TRANSDERMAL TD SCH (09:00)
[2021-07-27] MEDS ORDERED: NICOTINE 21MG/24HR 1 EA TRANSDERMAL TD SCH (09:00)
[2021-07-27] MEDS: PALIPERIDONE 3 MG ER TAB (INVEGA) PO SCH ×2 (09:00→20:31)
[2021-07-27] MEDS ORDERED: HOME MED LIST COMPLETE! XX SCH (15:30)
[2021-07-27 17:22] VITALS: BP 114/73
[2021-07-27] MEDS: **NOTE PATIENT COMMENT** MISC XX SCH (20:31)
[2021-07-27] MEDS: ARIPiprazole 15 MG TAB (AbiLIFY) PO SCH (20:32)
[2021-07-28 06:43] VITALS: BP 139/81
[2021-07-28] MEDS: NICOTINE 21MG/24HR 1 EA TRANSDERMAL TD SCH ×2 (09:00→09:29)
[2021-07-28] MEDS: PALIPERIDONE 3 MG ER TAB (INVEGA) PO SCH ×3 (09:00→20:20)
[2021-07-28 09:30] LABS: CHOLESTEROL RISK RATIO 3.161 (<5)
[2021-07-28 18:30] VITALS: BP 142/69
[2021-07-28] MEDS: ARIPiprazole 15 MG TAB (AbiLIFY) PO SCH (20:19)
[2021-07-28] MEDS: **NOTE PATIENT COMMENT** MISC XX SCH (20:20)
[2021-07-29 06:33] VITALS: BP 148/83
[2021-07-29] MEDS: NICOTINE 21MG/24HR 1 EA TRANSDERMAL TD SCH (09:00)
[2021-07-29] MEDS: PALIPERIDONE 3 MG ER TAB (INVEGA) PO SCH ×2 (09:00→20:17)
[2021-07-29] MEDS: **NOTE PATIENT COMMENT** MISC XX SCH (20:17)
[2021-07-29] MEDS: ARIPiprazole 15 MG TAB (AbiLIFY) PO SCH (20:18)
[2021-07-30 06:43] VITALS: BP 138/93
[2021-07-30] MEDS: PALIPERIDONE 3 MG ER TAB (INVEGA) PO SCH (09:00)
[2021-07-30] MEDS: NICOTINE 21MG/24HR 1 EA TRANSDERMAL TD SCH (09:00)
[2021-07-30 16:16] VITALS: BP 141/90
[2021-07-30] MEDS: **NOTE PATIENT COMMENT** MISC XX SCH (19:26)
[2021-07-30] MEDS: ARIPiprazole 15 MG TAB (AbiLIFY) PO SCH (20:38)
[2021-07-31 06:26] VITALS: BP 131/60
[2021-07-31] MEDS: NICOTINE 21MG/24HR 1 EA TRANSDERMAL TD SCH (08:48)
[2021-07-31 16:37] VITALS: BP 119/64
[2021-07-31] MEDS: ARIPiprazole 15 MG TAB (AbiLIFY) PO SCH (20:36)
[2021-07-31] MEDS: **NOTE PATIENT COMMENT** MISC XX SCH (21:00)
[2021-08-01 06:37] VITALS: BP 110/72
[2021-08-01 08:46] VITALS: BP 110/72
[2021-08-01] MEDS: NICOTINE 21MG/24HR 1 EA TRANSDERMAL TD SCH (08:47)
[2021-08-01] MEDS ORDERED: TRAZ-252 PO (09:49)
[2021-08-01] MEDS ORDERED: ABIL1TAB12 PO (09:49)
[2021-08-01] MEDS ORDERED: NICO21PAT TD (09:49)
== END 2021-08-01 12:20 | disposition home or self-care (01) | DRG 774 ==
LOC: M PSY 15:00
PROVIDERS: ADMIT Psychiatry & Neurology Psychiatry; ATTEND Student in an Organized Health Care Education/Training Program
DX: F16.150 Hallucinogen abuse with hallucinogen-induced psychotic disorder with delusions (principal); F14.10 Cocaine abuse, uncomplicated; I10 Essential (primary) hypertension; F20.9 Schizophrenia, unspecified; F15.10 Other stimulant abuse, uncomplicated; F12.10 Cannabis abuse, uncomplicated; F17.200 Nicotine dependence, unspecified, uncomplicated; Z79.899 Other long term (current) drug therapy; Z88.2 Allergy status to sulfonamides; Z86.16 Personal history of COVID-19

== ENCOUNTER 2021-09-14 14:29 | Emergency (ER) | payer MEDICAID ==
[~2021-09-14 14:29] MED LIST changes: +ABIL1TAB12 PO; +TRAZ-252 PO
[2021-09-14 18:07] LABS: HEMATOCRIT 40.8 % (42.0-52.0); HEMOGLOBIN 14.2 g/dl (13.5-17.5); MEAN CORPUSCULAR HEMOGLOBIN 31.8 pg (27.0-33.0); MEAN CORPUSCULAR HGB CONC 34.8 g/dl (32.0-36.5); MEAN CORPUSCULAR VOLUME 91.3 fl (80.0-96.0); PLATELET COUNT, AUTOMATED 263 10^3/uL (150-450); RED BLOOD COUNT 4.47 10^6/uL (4.30-6.10)
[2021-09-14 18:44] LABS: AMPHETAMINES LEVEL URINE POSITIVE (NEGATIVE); BARBITURATES URINE NEGATIVE (NEGATIVE); BENZODIAZEPINES URINE NEGATIVE (NEGATIVE); CANNABINOIDS URINE POSITIVE (NEGATIVE); COCAINE METABOLITE URINE NEGATIVE (NEGATIVE); METHADONE URINE NEGATIVE (NEGATIVE); OPIATES URINE NEGATIVE (NEGATIVE); PHENCYCLIDINE URINE NEGATIVE (NEGATIVE)
[2021-09-14 18:51] LABS: ACETAMINOPHEN LEVEL < 2.0 UG/ML (10.0-30.0); ALBUMIN 3.7 GM/DL (3.2-5.2); ALT/SGPT 21 U/L (12-78); BILIRUBIN,DIRECT 0.2 MG/DL (0.0-0.2); BILIRUBIN,TOTAL 0.5 MG/DL (0.2-1.0); BLOOD UREA NITROGEN 14 MG/DL (7-18); CARBON DIOXIDE LEVEL 29 MEQ/L (21-32); CHLORIDE LEVEL 108 MEQ/L (98-107); CREATININE FOR GFR 1.01 MG/DL (0.70-1.30); ETHYL ALCOHOL (ETHANOL) < 0.003 % (0.000-0.010); GLOMERULAR FILTRATION RATE > 60.0 (>60); GLUCOSE, FASTING 85 MG/DL (70-100); POTASSIUM SERUM 3.9 MEQ/L (3.5-5.1); SALICYLATE LEVEL < 1.7 MG/DL (5.0-30.0); SODIUM LEVEL 141 MEQ/L (136-145); THYROID STIMULATING HORMONE 0.297 uIU/ML (0.358-3.740); TOTAL PROTEIN 7.2 GM/DL (6.4-8.2)
[2021-09-14 20:05] LABS: RSV AMPLIFICATION NEGATIVE (NEGATIVE)
[2021-09-14] MEDS ORDERED: HOME MED LIST COMPLETE! XX SCH (23:55)
[2021-09-15 01:43] VITALS: BP 147/87
== END 2021-09-15 01:44 ==
LOC: M ED 14:29
DX: F20.0 Paranoid schizophrenia (principal); F15.10 Other stimulant abuse, uncomplicated; I10 Essential (primary) hypertension; F10.20 Alcohol dependence, uncomplicated; Z88.1 Allergy status to other antibiotic agents; Z88.2 Allergy status to sulfonamides; F17.210 Nicotine dependence, cigarettes, uncomplicated

== ENCOUNTER 2021-12-01 02:38 | Inpatient (IN) | payer MEDICAID, OTHER ==
[~2021-12-01] VITALS: Ht 175.3 cm; Wt 89.0 kg
[2021-12-01 03:09] LABS: HEMATOCRIT 43.5 % (42.0-52.0); HEMOGLOBIN 15.1 g/dl (13.5-17.5); MEAN CORPUSCULAR HEMOGLOBIN 32.1 pg (27.0-33.0); MEAN CORPUSCULAR HGB CONC 34.7 g/dl (32.0-36.5); MEAN CORPUSCULAR VOLUME 92.4 fl (80.0-96.0); PLATELET COUNT, AUTOMATED 280 10^3/uL (150-450); RED BLOOD COUNT 4.71 10^6/uL (4.30-6.10); WHITE BLOOD COUNT 7.6 10^3/uL (4.0-10.0)
[2021-12-01 03:51] LABS: ALBUMIN 4.5 GM/DL (3.2-5.2); ALT/SGPT 31 U/L (12-78); BILIRUBIN,DIRECT 0.2 MG/DL (0.0-0.2); BILIRUBIN,TOTAL 0.6 MG/DL (0.2-1.0); BLOOD UREA NITROGEN 18 MG/DL (7-18); CALCIUM LEVEL 9.5 MG/DL (8.5-10.1); CARBON DIOXIDE LEVEL 28 MEQ/L (21-32); CHLORIDE LEVEL 106 MEQ/L (98-107); CREATININE FOR GFR 1.38 MG/DL (0.70-1.30); GLOMERULAR FILTRATION RATE > 60.0 (>60); GLUCOSE, FASTING 118 MG/DL (70-100); POTASSIUM SERUM 4.3 MEQ/L (3.5-5.1); SALICYLATE LEVEL 1.9 MG/DL (5.0-30.0); SODIUM LEVEL 141 MEQ/L (136-145); THYROID STIMULATING HORMONE 0.857 uIU/ML (0.358-3.740); TOTAL PROTEIN 8.6 GM/DL (6.4-8.2)
[2021-12-01 03:53] LABS: ACETAMINOPHEN LEVEL < 2.0 UG/ML (10.0-30.0); ETHYL ALCOHOL (ETHANOL) < 0.003 % (0.000-0.010)
[2021-12-01 04:04] LABS: RSV AMPLIFICATION NEGATIVE (NEGATIVE)
[2021-12-01 05:12] LABS: AMPHETAMINES LEVEL URINE POSITIVE (NEGATIVE); BARBITURATES URINE NEGATIVE (NEGATIVE); BENZODIAZEPINES URINE NEGATIVE (NEGATIVE); CANNABINOIDS URINE POSITIVE (NEGATIVE); COCAINE METABOLITE URINE NEGATIVE (NEGATIVE); METHADONE URINE NEGATIVE (NEGATIVE); OPIATES URINE NEGATIVE (NEGATIVE); PHENCYCLIDINE URINE NEGATIVE (NEGATIVE)
[2021-12-01] MEDS ORDERED: LORazepam 2 MG/ML VIAL IM STA (06:24)
[2021-12-01] MEDS ORDERED: HALOPERIDOL 5MG/ML VIAL (J1630 PER 1) IM STA (06:24)
[2021-12-01] MEDS ORDERED: diphenhydrAMINE 50MG/ML VIAL (J1200) IM STA (06:24)
[2021-12-02] MEDS ORDERED: OLANZapine ORAL DISINTEGRATING TAB 5MG PO PRN (14:30)
[2021-12-02] MEDS ORDERED: traZODone 50 MG TAB PO PRN (14:30)
[2021-12-02] MEDS ORDERED: MAALOX 30 ML SUSP *UDC PO PRN (14:30)
[2021-12-02] MEDS ORDERED: MOM 30ML SUSPENSION UDC PO PRN (14:30)
[2021-12-02] MEDS ORDERED: ACETAMINOPHEN TAB 650MG DOSE (2X325MG) PO PRN (14:30)
[2021-12-02 17:04] VITALS: BP 130/90
[2021-12-03 06:28] VITALS: BP 118/77
[2021-12-03] MEDS: PALIPERIDONE 3 MG ER TAB (INVEGA) PO SCH ×2 (13:00→20:51)
[2021-12-04 06:23] VITALS: BP 138/82
[2021-12-04] MEDS: PALIPERIDONE 3 MG ER TAB (INVEGA) PO SCH (08:38)
[2021-12-04 16:10] VITALS: BP 132/88
[2021-12-04] MEDS ORDERED: OLANZapine ORAL DISINTEGRATING TAB 5MG PO SCH (21:00)
[2021-12-05 06:26] VITALS: BP 130/74
[2021-12-05] MEDS ORDERED: BENZTROPINE 1 MG TAB PO PRN (12:35)
[2021-12-05] MEDS: risperiDONE 2 MG TAB PO SCH ×2 (13:19→21:46)
[2021-12-05 17:45] VITALS: BP 131/86
[2021-12-06 06:00] VITALS: BP 126/73
[2021-12-06] MEDS: risperiDONE 2 MG TAB PO SCH ×2 (09:29→21:00)
[2021-12-06] MEDS ORDERED: risperiDONE LONG-ACTING 37.5 MG/2 ML INJ (J2794 PER 0.5MG) IM SCH (11:00)
[2021-12-06 11:38] LABS: BLOOD UREA NITROGEN 18 MG/DL (7-18); CARBON DIOXIDE LEVEL 29 MEQ/L (21-32); CHLORIDE LEVEL 107 MEQ/L (98-107); CHOLESTEROL LEVEL 221 MG/DL (<200); CHOLESTEROL RISK RATIO 3.112 (<5); CREATININE FOR GFR 1.02 MG/DL (0.70-1.30); GLOMERULAR FILTRATION RATE > 60.0 (>60); GLUCOSE, FASTING 110 MG/DL (70-100); HDL CHOLESTEROL 71 MG/DL (>40); LDL CHOLESTEROL 125 MG/DL (<100); NON-HDL-C 150 MG/DL; POTASSIUM SERUM 4.4 MEQ/L (3.5-5.1); SODIUM LEVEL 140 MEQ/L (136-145); TRIGLYCERIDES LEVEL 123 MG/DL (<150)
[2021-12-06 18:48] VITALS: BP 140/82
[2021-12-07 06:00] VITALS: BP 132/81
[2021-12-07] MEDS ORDERED: RISP-9 PO (08:22)
[2021-12-07] MEDS ORDERED: RISP37INJ IM (08:22)
[2021-12-07] MEDS: risperiDONE 2 MG TAB PO SCH (11:35)
== END 2021-12-07 12:29 | disposition home or self-care (01) | DRG 750 ==
LOC: M ED 02:38 → M ED INP 12-02 14:26 → M PSY 12-02 16:58
PROVIDERS: ADMIT Student in an Organized Health Care Education/Training Program; ATTEND Student in an Organized Health Care Education/Training Program
DX: F20.9 Schizophrenia, unspecified (principal); F15.10 Other stimulant abuse, uncomplicated; F29 Unspecified psychosis not due to a substance or known physiological condition; F19.159 Other psychoactive substance abuse with psychoactive substance-induced psychotic disorder, unspecified; F12.10 Cannabis abuse, uncomplicated; Z62.810 Personal history of physical and sexual abuse in childhood; Z62.811 Personal history of psychological abuse in childhood; Z88.1 Allergy status to other antibiotic agents; Z88.2 Allergy status to sulfonamides

== ENCOUNTER 2021-12-12 04:03 | Emergency (ER) | payer MEDICAID, OTHER ==
[~2021-12-12] VITALS: Ht 175.3 cm; Wt 84.1 kg
[~2021-12-12 04:03] MED LIST changes: +RISP-9 PO; +RISP37INJ IM
[2021-12-12] MEDS ORDERED: LORazepam 2 MG/ML VIAL IM ONE (04:05)
[2021-12-12] MEDS ORDERED: diphenhydrAMINE 50MG/ML VIAL (J1200) IM ONE (04:05)
[2021-12-12] MEDS ORDERED: HALOPERIDOL 5MG/ML VIAL (J1630 PER 1) IM ONE (04:05)
[2021-12-12 04:52] LABS: HEMATOCRIT 40.9 % (42.0-52.0); HEMOGLOBIN 14.3 g/dl (13.5-17.5); MEAN CORPUSCULAR HEMOGLOBIN 32.4 pg (27.0-33.0); MEAN CORPUSCULAR VOLUME 92.7 fl (80.0-96.0); PLATELET COUNT, AUTOMATED 249 10^3/uL (150-450); RED BLOOD COUNT 4.41 10^6/uL (4.30-6.10); WHITE BLOOD COUNT 4.9 10^3/uL (4.0-10.0)
[2021-12-12 05:27] LABS: RSV AMPLIFICATION NEGATIVE (NEGATIVE)
[2021-12-12 06:34] LABS: ACETAMINOPHEN LEVEL < 2.0 UG/ML (10.0-30.0); ALT/SGPT 26 U/L (12-78); BILIRUBIN,DIRECT 0.3 MG/DL (0.0-0.2); BILIRUBIN,TOTAL 1.1 MG/DL (0.2-1.0); BLOOD UREA NITROGEN 20 MG/DL (7-18); CALCIUM LEVEL 8.9 MG/DL (8.5-10.1); CARBON DIOXIDE LEVEL 25 MEQ/L (21-32); CHLORIDE LEVEL 107 MEQ/L (98-107); CREATININE FOR GFR 1.04 MG/DL (0.70-1.30); ETHYL ALCOHOL (ETHANOL) < 0.003 % (0.000-0.010); GLOMERULAR FILTRATION RATE > 60.0 (>60); GLUCOSE, FASTING 96 MG/DL (70-100); SALICYLATE LEVEL < 1.7 MG/DL (5.0-30.0); SODIUM LEVEL 140 MEQ/L (136-145); TOTAL PROTEIN 7.5 GM/DL (6.4-8.2)
[2021-12-12] MEDS ORDERED: RISP37INJ IM (06:36)
[2021-12-12] MEDS ORDERED: RISP-9 PO (06:36)
[2021-12-12] MEDS ORDERED: MED REC COMMENT (06:36)
[2021-12-12] MEDS ORDERED: HOME MED LIST COMPLETE! XX SCH (06:40)
[2021-12-12 08:05] LABS: AMPHETAMINES LEVEL URINE POSITIVE (NEGATIVE); BARBITURATES URINE NEGATIVE (NEGATIVE); BENZODIAZEPINES URINE NEGATIVE (NEGATIVE); CANNABINOIDS URINE POSITIVE (NEGATIVE); COCAINE METABOLITE URINE NEGATIVE (NEGATIVE); METHADONE URINE NEGATIVE (NEGATIVE); OPIATES URINE NEGATIVE (NEGATIVE); PHENCYCLIDINE URINE NEGATIVE (NEGATIVE)
[2021-12-12] MEDS ORDERED: NS 1,000 ML IV ONE (08:45)
[2021-12-13 14:21] VITALS: BP 143/76
== END 2021-12-13 14:27 | disposition home or self-care (01) ==
LOC: M ED 04:03
DX: F15.159 Other stimulant abuse with stimulant-induced psychotic disorder, unspecified (principal); F20.9 Schizophrenia, unspecified; Z79.899 Other long term (current) drug therapy
CPT/HCPCS: 36415; 80048; 80076; 80143; 80307; 82077; 84443; 85027; 87631; 96372; 99285; J1200; J1630; J2060

== ENCOUNTER 2021-12-28 16:52 | Emergency (ER) | payer MEDICAID, OTHER ==
[~2021-12-28 16:52] MED LIST changes: +RISP50INJ IM
[2021-12-28] MEDS ORDERED: LORazepam 2 MG/ML VIAL IM STA (16:57)
[2021-12-28] MEDS ORDERED: OLANZapine INTRAMUSCULAR 10MG VIAL IM ONE (17:00)
[2021-12-28 19:19] LABS: BASO # 0.1 10^3/uL (0.0-0.2); BASO % 1.1 % (0.0-1.0); EOS % 0.4 % (0.0-3.0); HEMATOCRIT 39.4 % (42.0-52.0); HEMOGLOBIN 13.6 g/dl (13.5-17.5); LYMPH # 1.6 10^3/uL (1.5-5.0); LYMPH % 29.6 % (24.0-44.0); MEAN CORPUSCULAR HEMOGLOBIN 31.5 pg (27.0-33.0); MEAN CORPUSCULAR HGB CONC 34.5 g/dl (32.0-36.5); MEAN CORPUSCULAR VOLUME 91.2 fl (80.0-96.0); MONO # 0.9 10^3/uL (0.0-0.8); MONO % 16.1 % (2.0-8.0); NEUTROPHILS # 2.9 10^3/uL (1.5-8.5); NEUTROPHILS % 52.6 % (36.0-66.0); PLATELET COUNT, AUTOMATED 270 10^3/uL (150-450); RED BLOOD COUNT 4.32 10^6/uL (4.30-6.10); WHITE BLOOD COUNT 5.5 10^3/uL (4.0-10.0)
[2021-12-28 19:46] LABS: ACETAMINOPHEN LEVEL < 2.0 UG/ML (10.0-30.0); ALBUMIN 4.3 GM/DL (3.2-5.2); ALT/SGPT 32 U/L (12-78); BILIRUBIN,DIRECT 0.2 MG/DL (0.0-0.2); BILIRUBIN,TOTAL 0.9 MG/DL (0.2-1.0); BLOOD UREA NITROGEN 15 MG/DL (7-18); CALCIUM LEVEL 9.9 MG/DL (8.5-10.1); CARBON DIOXIDE LEVEL 27 MEQ/L (21-32); CHLORIDE LEVEL 106 MEQ/L (98-107); CREATININE FOR GFR 1.03 MG/DL (0.70-1.30); ETHYL ALCOHOL (ETHANOL) < 0.003 % (0.000-0.010); GLOMERULAR FILTRATION RATE > 60.0 (>60); GLUCOSE, FASTING 97 MG/DL (70-100); POTASSIUM SERUM 4.1 MEQ/L (3.5-5.1); SALICYLATE LEVEL < 1.7 MG/DL (5.0-30.0); SODIUM LEVEL 139 MEQ/L (136-145); TOTAL PROTEIN 7.7 GM/DL (6.4-8.2)
[2021-12-28 20:56] LABS: RSV AMPLIFICATION NEGATIVE (NEGATIVE)
[2021-12-29 03:05] VITALS: BP 140/78
[2021-12-29] MEDS ORDERED: HOME MED LIST COMPLETE! XX SCH (08:35)
== END 2021-12-29 09:00 | disposition home or self-care (01) ==
LOC: M ED 16:52
DX: R45.6 Violent behavior (principal); F15.10 Other stimulant abuse, uncomplicated; Z88.1 Allergy status to other antibiotic agents; Z88.2 Allergy status to sulfonamides
CPT/HCPCS: 36415; 80048; 80076; 80143; 82077; 84443; 85025; 87631; 96372; 99285; J2060

== ENCOUNTER 2022-01-05 22:45 | Emergency (ER) | payer MEDICAID, OTHER ==
[~2022-01-05] VITALS: Ht 177.8 cm; Wt 93.2 kg
[2022-01-05 23:23] LABS: BASO % 0.3 % (0.0-1.0); EOS % 0.3 % (0.0-3.0); HEMOGLOBIN 13.9 g/dl (13.5-17.5); LYMPH # 1.9 10^3/uL (1.5-5.0); LYMPH % 25.8 % (24.0-44.0); MEAN CORPUSCULAR HEMOGLOBIN 32.7 pg (27.0-33.0); MEAN CORPUSCULAR HGB CONC 34.8 g/dl (32.0-36.5); MEAN CORPUSCULAR VOLUME 94.1 fl (80.0-96.0); MONO # 0.9 10^3/uL (0.0-0.8); MONO % 11.6 % (2.0-8.0); NEUTROPHILS # 4.5 10^3/uL (1.5-8.5); NEUTROPHILS % 61.7 % (36.0-66.0); PLATELET COUNT, AUTOMATED 282 10^3/uL (150-450); RED BLOOD COUNT 4.25 10^6/uL (4.30-6.10); WHITE BLOOD COUNT 7.3 10^3/uL (4.0-10.0)
[2022-01-06 00:07] LABS: ACETAMINOPHEN LEVEL < 2.0 UG/ML (10.0-30.0); ALBUMIN 3.7 GM/DL (3.2-5.2); ALT/SGPT 26 U/L (12-78); BILIRUBIN,DIRECT < 0.1 MG/DL (0.0-0.2); BILIRUBIN,TOTAL 0.3 MG/DL (0.2-1.0); BLOOD UREA NITROGEN 16 MG/DL (7-18); CALCIUM LEVEL 9.2 MG/DL (8.5-10.1); CARBON DIOXIDE LEVEL 28 MEQ/L (21-32); CHLORIDE LEVEL 108 MEQ/L (98-107); CREATININE FOR GFR 0.92 MG/DL (0.70-1.30); ETHYL ALCOHOL (ETHANOL) < 0.003 % (0.000-0.010); GLOMERULAR FILTRATION RATE > 60.0 (>60); GLUCOSE, FASTING 111 MG/DL (70-100); POTASSIUM SERUM 4.1 MEQ/L (3.5-5.1); SALICYLATE LEVEL < 1.7 MG/DL (5.0-30.0); SODIUM LEVEL 143 MEQ/L (136-145); THYROID STIMULATING HORMONE 0.949 uIU/ML (0.358-3.740); TOTAL PROTEIN 7.4 GM/DL (6.4-8.2)
[2022-01-06 02:30] VITALS: BP 130/66
== END 2022-01-06 02:40 | disposition home or self-care (01) ==
LOC: M ED 22:45
DX: F15.10 Other stimulant abuse, uncomplicated (principal); R45.89 Other symptoms and signs involving emotional state; I10 Essential (primary) hypertension; F33.9 Major depressive disorder, recurrent, unspecified; F20.9 Schizophrenia, unspecified; F41.9 Anxiety disorder, unspecified; Z88.1 Allergy status to other antibiotic agents; Z88.2 Allergy status to sulfonamides; F12.20 Cannabis dependence, uncomplicated

== ENCOUNTER 2022-06-09 12:33 | Inpatient (IN) | payer MEDICAID, OTHER ==
[~2022-06-09] VITALS: Ht 177.8 cm; Wt 104.5 kg
[2022-06-09] MEDS ORDERED: LORazepam 2 MG/ML VIAL IV STA (12:57)
[2022-06-09] MEDS ORDERED: HALOPERIDOL 5MG/ML VIAL (J1630 PER 1) IM ONE (13:00)
[2022-06-09] MEDS ORDERED: diphenhydrAMINE 50MG/ML VIAL (J1200) IM ONE (13:00)
[2022-06-09 14:09] LABS: MEAN CORPUSCULAR HEMOGLOBIN 31.6 pg (27.0-33.0); MEAN CORPUSCULAR HGB CONC 34.1 g/dl (32.0-36.5); MEAN CORPUSCULAR VOLUME 92.6 fl (80.0-96.0); PLATELET COUNT, AUTOMATED 249 10^3/uL (150-450); RED BLOOD COUNT 4.43 10^6/uL (4.30-6.10); WHITE BLOOD COUNT 6.5 10^3/uL (4.0-10.0)
[2022-06-09 14:49] LABS: RSV AMPLIFICATION NEGATIVE (NEGATIVE)
[2022-06-09 15:32] LABS: ACETAMINOPHEN LEVEL < 2.0 UG/ML (10.0-30.0); ALBUMIN 4.4 GM/DL (3.2-5.2); ALT/SGPT 30 U/L (12-78); BILIRUBIN,DIRECT 0.3 MG/DL (0.0-0.2); BLOOD UREA NITROGEN 16 MG/DL (7-18); CALCIUM LEVEL 8.9 MG/DL (8.5-10.1); CARBON DIOXIDE LEVEL 26 MEQ/L (21-32); CHLORIDE LEVEL 106 MEQ/L (98-107); CREATININE FOR GFR 1.13 MG/DL (0.70-1.30); ETHYL ALCOHOL (ETHANOL) < 0.003 % (0.000-0.010); GLOMERULAR FILTRATION RATE > 60.0 (>60); GLUCOSE, FASTING 99 MG/DL (70-100); POTASSIUM SERUM 3.8 MEQ/L (3.5-5.1); SALICYLATE LEVEL < 1.7 MG/DL (5.0-30.0); SODIUM LEVEL 139 MEQ/L (136-145); THYROID STIMULATING HORMONE 0.609 uIU/ML (0.358-3.740); TOTAL PROTEIN 8.2 GM/DL (6.4-8.2)
[2022-06-09] MEDS ORDERED: HOME MED LIST COMPLETE! XX SCH (19:15)
[2022-06-10] MEDS ORDERED: OLANZapine 10 MG TAB PO ONE (03:00)
[2022-06-10 03:33] LABS: AMPHETAMINES LEVEL URINE POSITIVE (NEGATIVE); BARBITURATES URINE NEGATIVE (NEGATIVE); BENZODIAZEPINES URINE NEGATIVE (NEGATIVE); CANNABINOIDS URINE NEGATIVE (NEGATIVE); COCAINE METABOLITE URINE NEGATIVE (NEGATIVE); METHADONE URINE NEGATIVE (NEGATIVE); OPIATES URINE NEGATIVE (NEGATIVE); PHENCYCLIDINE URINE NEGATIVE (NEGATIVE)
[2022-06-10] MEDS ORDERED: ACETAMINOPHEN TAB 650MG DOSE (2X325MG) PO PRN (12:10)
[2022-06-10] MEDS ORDERED: MOM 30ML SUSPENSION UDC PO PRN (12:10)
[2022-06-10] MEDS ORDERED: MAALOX 30 ML SUSP *UDC PO PRN (12:10)
[2022-06-10] MEDS ORDERED: OLANZapine ORAL DISINTEGRATING TAB 5MG PO PRN (12:10)
[2022-06-10] MEDS ORDERED: NICOTINE 21MG/24HR 1 EA TRANSDERMAL TD PRN (12:10)
[2022-06-10 13:50] VITALS: BP 128/76
[2022-06-12] MEDS: risperiDONE 1 MG TAB PO SCH ×3 (09:00→20:16)
[2022-06-13 06:23] VITALS: BP 118/67
[2022-06-13 08:48] LABS: CHOLESTEROL RISK RATIO 3.909 (<5)
[2022-06-13] MEDS: risperiDONE 2 MG TAB PO SCH (09:48)
[2022-06-13] MEDS: traZODone 50 MG TAB PO PRN (20:08)
[2022-06-13] MEDS ORDERED: risperiDONE 1 MG TAB PO SCH (21:00)
[2022-06-14 06:21] VITALS: BP 137/77
[2022-06-14] MEDS: risperiDONE 2 MG TAB PO SCH (09:43)
[2022-06-14] MEDS: traZODone 50 MG TAB PO PRN (20:09)
[2022-06-14] MEDS ORDERED: risperiDONE 2 MG TAB PO SCH (21:00)
[2022-06-14] MEDS ORDERED: risperiDONE 1 MG TAB PO SCH (21:00)
[2022-06-15 06:07] VITALS: BP 133/84
[2022-06-15] MEDS: risperiDONE 2 MG TAB PO SCH ×2 (09:00→13:52)
[2022-06-15] MEDS ORDERED: TRAZ-252 PO (11:04)
[2022-06-15] MEDS ORDERED: RISP-9 PO (11:04)
[2022-06-15] MEDS ORDERED: RISP-8 PO (11:04)
[2022-06-19 12:07] LABS: RISPERIDONE1 1 ng/mL (Not Estab.); RISPERIDONE2 7 ng/mL (Not Estab.); RISPERIDONE3 8 ng/mL (20-60)
== END 2022-06-15 14:03 | disposition home or self-care (01) | DRG 750 ==
LOC: M ED 12:33 → M ED INP 06-10 12:06 → M PSY 06-10 13:42
PROVIDERS: ADMIT Psychiatry & Neurology Psychiatry; ATTEND Psychiatry & Neurology Psychiatry
DX: F20.9 Schizophrenia, unspecified (principal); F15.150 Other stimulant abuse with stimulant-induced psychotic disorder with delusions; Z91.199 Patient's noncompliance with other medical treatment and regimen due to unspecified reason; F12.10 Cannabis abuse, uncomplicated; F60.89 Other specific personality disorders; Z88.2 Allergy status to sulfonamides; Z79.899 Other long term (current) drug therapy; Z65.2 Problems related to release from prison

== ENCOUNTER 2022-07-03 20:32 | Emergency (ER) | payer MEDICAID ==
[~2022-07-03] VITALS: Ht 177.8 cm; Wt 105.0 kg
[~2022-07-03 20:32] MED LIST changes: +RISP-8 PO
[2022-07-03 21:14] LABS: HEMATOCRIT 40.9 % (42.0-52.0); HEMOGLOBIN 14.4 g/dl (13.5-17.5); MEAN CORPUSCULAR HEMOGLOBIN 31.4 pg (27.0-33.0); MEAN CORPUSCULAR HGB CONC 35.2 g/dl (32.0-36.5); MEAN CORPUSCULAR VOLUME 89.3 fl (80.0-96.0); PLATELET COUNT, AUTOMATED 287 10^3/uL (150-450); RED BLOOD COUNT 4.58 10^6/uL (4.30-6.10); WHITE BLOOD COUNT 5.4 10^3/uL (4.0-10.0)
[2022-07-03] MEDS ORDERED: LORazepam 2 MG TAB PO STA (21:32)
[2022-07-03] MEDS ORDERED: OLANZapine ORAL DISINTEGRATING TAB 5MG PO ONE (21:35)
[2022-07-03 21:47] LABS: RSV AMPLIFICATION NEGATIVE (NEGATIVE)
[2022-07-03 22:16] LABS: ACETAMINOPHEN LEVEL < 2.0 UG/ML (10.0-30.0); ALBUMIN 4.5 GM/DL (3.2-5.2); ALT/SGPT 30 U/L (12-78); BILIRUBIN,DIRECT 0.2 MG/DL (0.0-0.2); BLOOD UREA NITROGEN 18 MG/DL (7-18); CALCIUM LEVEL 9.7 MG/DL (8.5-10.1); CARBON DIOXIDE LEVEL 23 MEQ/L (21-32); CHLORIDE LEVEL 105 MEQ/L (98-107); CREATININE FOR GFR 1.61 MG/DL (0.70-1.30); ETHYL ALCOHOL (ETHANOL) 0.003 % (0.000-0.010); GLOMERULAR FILTRATION RATE > 60.0 (>60); GLUCOSE, FASTING 103 MG/DL (70-100); POTASSIUM SERUM 3.6 MEQ/L (3.5-5.1); SODIUM LEVEL 137 MEQ/L (136-145); THYROID STIMULATING HORMONE 0.625 uIU/ML (0.358-3.740); TOTAL PROTEIN 8.3 GM/DL (6.4-8.2)
[2022-07-03 22:30] LABS: AMPHETAMINES LEVEL URINE POSITIVE (NEGATIVE); BARBITURATES URINE NEGATIVE (NEGATIVE); BENZODIAZEPINES URINE NEGATIVE (NEGATIVE); CANNABINOIDS URINE POSITIVE (NEGATIVE); COCAINE METABOLITE URINE POSITIVE (NEGATIVE); METHADONE URINE NEGATIVE (NEGATIVE); OPIATES URINE NEGATIVE (NEGATIVE); PHENCYCLIDINE URINE NEGATIVE (NEGATIVE)
[2022-07-04] MEDS ORDERED: RISP1TAB42 PO (11:31)
[2022-07-04] MEDS ORDERED: HYDR-3363 PO (11:31)
[2022-07-04] MEDS ORDERED: HOME MED LIST COMPLETE! XX SCH (11:40)
[2022-07-04] MEDS ORDERED: risperiDONE 1 MG TAB PO SCH (21:00)
[2022-07-05 15:24] VITALS: BP 128/70
== END 2022-07-05 15:33 | disposition home or self-care (01) ==
LOC: M ED 20:32
DX: F29 Unspecified psychosis not due to a substance or known physiological condition (principal); F19.10 Other psychoactive substance abuse, uncomplicated; F20.9 Schizophrenia, unspecified; Z88.2 Allergy status to sulfonamides; Z79.899 Other long term (current) drug therapy

== ENCOUNTER 2022-07-15 20:18 | Inpatient (IN) | payer MEDICAID ==
[~2022-07-15] VITALS: Ht 177.8 cm; Wt 91.4 kg
[~2022-07-15 20:18] MED LIST changes: +HYDR-3363 PO; +RISP1TAB42 PO
[2022-07-15] MEDS ORDERED: MIDAZOLAM 5MG/ML 1ML VIAL (J2250 PER 1MG) IV ONE (20:40)
[2022-07-15] MEDS ORDERED: MIDAZOLAM INJ 2MG/2ML VIAL (J2250 PER 1MG) IV ONE ×2 (20:40→20:45)
[2022-07-15 21:04] LABS: HEMATOCRIT 39.8 % (42.0-52.0); HEMOGLOBIN 13.7 g/dl (13.5-17.5); MEAN CORPUSCULAR HEMOGLOBIN 31.6 pg (27.0-33.0); MEAN CORPUSCULAR HGB CONC 34.4 g/dl (32.0-36.5); MEAN CORPUSCULAR VOLUME 91.7 fl (80.0-96.0); PLATELET COUNT, AUTOMATED 276 10^3/uL (150-450); RED BLOOD COUNT 4.34 10^6/uL (4.30-6.10); WHITE BLOOD COUNT 5.4 10^3/uL (4.0-10.0)
[2022-07-15 21:35] LABS: RSV AMPLIFICATION NEGATIVE (NEGATIVE)
[2022-07-15 22:07] LABS: ACETAMINOPHEN LEVEL < 2.0 UG/ML (10.0-30.0); ALBUMIN 4.3 GM/DL (3.2-5.2); ALT/SGPT 21 U/L (12-78); BILIRUBIN,DIRECT 0.2 MG/DL (0.0-0.2); BILIRUBIN,TOTAL 0.6 MG/DL (0.2-1.0); BLOOD UREA NITROGEN 12 MG/DL (7-18); CARBON DIOXIDE LEVEL 25 MEQ/L (21-32); CHLORIDE LEVEL 105 MEQ/L (98-107); CREATININE FOR GFR 1.23 MG/DL (0.70-1.30); ETHYL ALCOHOL (ETHANOL) < 0.003 % (0.000-0.010); GLOMERULAR FILTRATION RATE > 60.0 (>60); GLUCOSE, FASTING 101 MG/DL (70-100); POTASSIUM SERUM 3.6 MEQ/L (3.5-5.1); SALICYLATE LEVEL 2.7 MG/DL (5.0-30.0); SODIUM LEVEL 137 MEQ/L (136-145); THYROID STIMULATING HORMONE 0.421 uIU/ML (0.358-3.740)
[2022-07-15] MEDS ORDERED: MIRT1TAB PO (23:02)
[2022-07-15] MEDS ORDERED: HOME MED LIST COMPLETE! XX SCH (23:05)
[2022-07-16 06:32] LABS: AMPHETAMINES LEVEL URINE POSITIVE (NEGATIVE); BARBITURATES URINE NEGATIVE (NEGATIVE); BENZODIAZEPINES URINE POSITIVE (NEGATIVE); CANNABINOIDS URINE POSITIVE (NEGATIVE); COCAINE METABOLITE URINE NEGATIVE (NEGATIVE); METHADONE URINE NEGATIVE (NEGATIVE); OPIATES URINE NEGATIVE (NEGATIVE); PHENCYCLIDINE URINE NEGATIVE (NEGATIVE)
[2022-07-16] MEDS ORDERED: LORazepam 1 MG TAB PO STA (08:30)
[2022-07-16] MEDS ORDERED: OLANZapine 5 MG TAB PO ONE (08:30)
[2022-07-17] MEDS ORDERED: PILL CUTTER 1 EACH XX PRN (20:40)
[2022-07-17] MEDS: MIRTAZAPINE 15 MG TAB PO SCH (21:00)
[2022-07-17] MEDS ORDERED: MIRTAZAPINE 7.5MG PER 1/2 TABLET PO SCH (21:00)
[2022-07-17] MEDS: risperiDONE 1 MG TAB PO SCH (21:00)
[2022-07-18] MEDS: risperiDONE 1 MG TAB PO SCH (21:43)
[2022-07-18] MEDS: MIRTAZAPINE 15 MG TAB PO SCH (21:43)
[2022-07-19] MEDS: MIRTAZAPINE 15 MG TAB PO SCH (21:49)
[2022-07-19] MEDS: risperiDONE 1 MG TAB PO SCH (21:49)
[2022-07-20] MEDS: NICOTINE 21MG/24HR 1 EA TRANSDERMAL TD SCH (09:00)
[2022-07-20 13:34] LABS: RSV AMPLIFICATION NEGATIVE (NEGATIVE)
[2022-07-20 14:03] LABS: MRSA PCR SCREEN DETECTED (NEGATIVE)
[2022-07-20] MEDS ORDERED: MOM 30ML SUSPENSION UDC PO PRN (14:20)
[2022-07-20] MEDS ORDERED: diphenhydrAMINE 25MG CAP PO PRN (14:20)
[2022-07-20] MEDS ORDERED: IBUPROFEN 400MG TAB PO PRN (14:20)
[2022-07-20] MEDS ORDERED: MAALOX 30 ML SUSP *UDC PO PRN (14:20)
[2022-07-20] MEDS ORDERED: LORazepam 1 MG TAB PO PRN (14:20)
[2022-07-20] MEDS ORDERED: traZODone 50 MG TAB PO PRN (14:20)
[2022-07-20 15:54] VITALS: BP 118/88
[2022-07-20] MEDS: DOXYCYCLINE HYCLATE 100MG TABLET PO SCH (21:26)
[2022-07-20] MEDS: MIRTAZAPINE 7.5MG PER 1/2 TABLET PO SCH (21:26)
[2022-07-21 06:21] VITALS: BP 122/88
[2022-07-21] MEDS: NICOTINE 21MG/24HR 1 EA TRANSDERMAL TD SCH (08:56)
[2022-07-21] MEDS: DOXYCYCLINE HYCLATE 100MG TABLET PO SCH ×3 (08:56→21:01)
[2022-07-21] MEDS: risperiDONE 1 MG TAB PO SCH ×2 (10:35→21:01)
[2022-07-21] MEDS: MIRTAZAPINE 7.5MG PER 1/2 TABLET PO SCH (21:01)
[2022-07-22] MEDS: NICOTINE 21MG/24HR 1 EA TRANSDERMAL TD SCH (09:00)
[2022-07-22] MEDS: DOXYCYCLINE HYCLATE 100MG TABLET PO SCH ×2 (09:25→22:54)
[2022-07-22] MEDS: risperiDONE 1 MG TAB PO SCH ×2 (09:25→22:54)
[2022-07-22 18:12] VITALS: BP 101/59
[2022-07-22] MEDS: MIRTAZAPINE 7.5MG PER 1/2 TABLET PO SCH (22:54)
[2022-07-23 06:59] VITALS: BP 114/63
[2022-07-23] MEDS: NICOTINE 21MG/24HR 1 EA TRANSDERMAL TD SCH (09:00)
[2022-07-23] MEDS: DOXYCYCLINE HYCLATE 100MG TABLET PO SCH ×2 (10:26→21:32)
[2022-07-23] MEDS: risperiDONE 1 MG TAB PO SCH ×2 (10:26→21:32)
[2022-07-23 16:34] VITALS: BP 116/59
[2022-07-23] MEDS: MIRTAZAPINE 7.5MG PER 1/2 TABLET PO SCH (21:32)
[2022-07-24] MEDS: DOXYCYCLINE HYCLATE 100MG TABLET PO SCH ×2 (08:51→21:08)
[2022-07-24] MEDS: NICOTINE 21MG/24HR 1 EA TRANSDERMAL TD SCH (08:52)
[2022-07-24] MEDS: risperiDONE 2 MG TAB PO SCH ×2 (09:00→21:08)
[2022-07-24] MEDS ORDERED: DOCUSATE SODIUM 100MG CAPSULE PO PRN (09:55)
[2022-07-24 16:44] VITALS: BP 138/78
[2022-07-24] MEDS: MIRTAZAPINE 7.5MG PER 1/2 TABLET PO SCH (21:08)
[2022-07-25 06:28] VITALS: BP 127/65
[2022-07-25] MEDS: NICOTINE 21MG/24HR 1 EA TRANSDERMAL TD SCH (08:02)
[2022-07-25] MEDS: risperiDONE 2 MG TAB PO SCH ×2 (08:03→20:39)
[2022-07-25] MEDS: DOXYCYCLINE HYCLATE 100MG TABLET PO SCH ×2 (08:03→20:39)
[2022-07-25] MEDS: MIRTAZAPINE 7.5MG PER 1/2 TABLET PO SCH (20:39)
[2022-07-26] MEDS: NICOTINE 21MG/24HR 1 EA TRANSDERMAL TD SCH (08:32)
[2022-07-26] MEDS: DOXYCYCLINE HYCLATE 100MG TABLET PO SCH ×2 (08:32→20:11)
[2022-07-26] MEDS: risperiDONE 2 MG TAB PO SCH ×2 (08:32→20:11)
[2022-07-26] MEDS: MIRTAZAPINE 7.5MG PER 1/2 TABLET PO SCH (20:11)
[2022-07-27] MEDS: DOXYCYCLINE HYCLATE 100MG TABLET PO SCH ×2 (08:08→20:03)
[2022-07-27] MEDS: risperiDONE 2 MG TAB PO SCH ×2 (08:08→20:02)
[2022-07-27] MEDS: NICOTINE 21MG/24HR 1 EA TRANSDERMAL TD SCH (08:08)
[2022-07-27 18:00] VITALS: BP 166/86
[2022-07-27] MEDS: MIRTAZAPINE 7.5MG PER 1/2 TABLET PO SCH (20:03)
[2022-07-28] MEDS: NICOTINE 21MG/24HR 1 EA TRANSDERMAL TD SCH (09:00)
[2022-07-28] MEDS: DOXYCYCLINE HYCLATE 100MG TABLET PO SCH ×2 (09:17→21:00)
[2022-07-28] MEDS: risperiDONE 2 MG TAB PO SCH ×2 (09:17→21:00)
[2022-07-28] MEDS: MIRTAZAPINE 7.5MG PER 1/2 TABLET PO SCH (21:00)
[2022-07-29] MEDS: risperiDONE 2 MG TAB PO SCH ×2 (09:00→20:48)
[2022-07-29] MEDS: DOXYCYCLINE HYCLATE 100MG TABLET PO SCH ×2 (09:00→20:48)
[2022-07-29] MEDS: NICOTINE 21MG/24HR 1 EA TRANSDERMAL TD SCH (09:00)
[2022-07-29] MEDS: MIRTAZAPINE 7.5MG PER 1/2 TABLET PO SCH (20:48)
[2022-07-30] MEDS: risperiDONE 2 MG TAB PO SCH ×2 (09:00→20:01)
[2022-07-30] MEDS: DOXYCYCLINE HYCLATE 100MG TABLET PO SCH ×2 (09:00→20:01)
[2022-07-30] MEDS: MIRTAZAPINE 7.5MG PER 1/2 TABLET PO SCH (20:01)
[2022-07-31] MEDS: DOXYCYCLINE HYCLATE 100MG TABLET PO SCH (08:45)
[2022-07-31] MEDS: risperiDONE 2 MG TAB PO SCH (08:45)
[2022-07-31] MEDS ORDERED: RISPERIDONE IM SCH (09:00)
[2022-07-31] MEDS ORDERED: [UNRECOGNIZED DRUG - OTHER] IM SCH (09:00)
[2022-07-31] MEDS ORDERED: MIRT-10 PO (14:30)
[2022-07-31] MEDS ORDERED: RISP37INJ IM (14:30)
[2022-07-31] MEDS ORDERED: RISP-9 PO (14:30)
== END 2022-07-31 15:06 | disposition home or self-care (01) | DRG 776 ==
LOC: M ED 20:18 → EDBD 20:18 → M ED INP 07-20 14:19 → M PSY 07-20 15:46
PROVIDERS: ADMIT Psychiatry & Neurology Psychiatry; ATTEND Student in an Organized Health Care Education/Training Program
DX: F15.150 Other stimulant abuse with stimulant-induced psychotic disorder with delusions (principal); R45.850 Homicidal ideations; F20.9 Schizophrenia, unspecified; F12.10 Cannabis abuse, uncomplicated; F60.89 Other specific personality disorders; Z79.899 Other long term (current) drug therapy; Z20.822 Contact with and (suspected) exposure to COVID-19; Z88.2 Allergy status to sulfonamides; F17.210 Nicotine dependence, cigarettes, uncomplicated; S61.411A Laceration without foreign body of right hand, initial encounter; X58.XXXA Exposure to other specified factors, initial encounter; Y92.9 Unspecified place or not applicable

== ENCOUNTER 2022-11-05 04:29 | Inpatient (IN) | payer MEDICAID ==
[~2022-11-05] VITALS: Ht 180.3 cm; Wt 102.2 kg
[~2022-11-05 04:29] MED LIST changes: +MIRT-10 PO; +MIRT1TAB PO
[2022-11-05 05:54] LABS: HEMATOCRIT 42.6 % (42.0-52.0); HEMOGLOBIN 14.6 g/dl (13.5-17.5); MEAN CORPUSCULAR HEMOGLOBIN 30.9 pg (27.0-33.0); MEAN CORPUSCULAR HGB CONC 34.3 g/dl (32.0-36.5); MEAN CORPUSCULAR VOLUME 90.3 fl (80.0-96.0); PLATELET COUNT, AUTOMATED 254 10^3/uL (150-450); RED BLOOD COUNT 4.72 10^6/uL (4.30-6.10); WHITE BLOOD COUNT 7.3 10^3/uL (4.0-10.0)
[2022-11-05 06:15] LABS: BARBITURATES URINE NEGATIVE (NEGATIVE); BENZODIAZEPINES URINE NEGATIVE (NEGATIVE); COCAINE METABOLITE URINE NEGATIVE (NEGATIVE); METHADONE URINE NEGATIVE (NEGATIVE); OPIATES URINE NEGATIVE (NEGATIVE); PHENCYCLIDINE URINE NEGATIVE (NEGATIVE)
[2022-11-05 06:16] LABS: ETHYL ALCOHOL (ETHANOL) 0.005 % (0.000-0.010)
[2022-11-05 06:17] LABS: ACETAMINOPHEN LEVEL < 2.0 UG/ML (10.0-20.0); SALICYLATE LEVEL < 3.0 MG/DL (<30)
[2022-11-05 06:18] LABS: AMPHETAMINES LEVEL URINE POSITIVE (NEGATIVE); CANNABINOIDS URINE POSITIVE (NEGATIVE)
[2022-11-05 06:22] LABS: ALBUMIN 4.6 G/DL (3.2-5.2); ALKALINE PHOSPHATASE 51 U/L (46-116); ALT/SGPT 24 U/L (7.0-40); AST/SGOT 28 U/L (<34); BILIRUBIN,DIRECT 0.4 MG/DL (<0.4); BILIRUBIN,TOTAL 1.4 MG/DL (0.3-1.2); BLOOD UREA NITROGEN 19 MG/DL (9-23); CALCIUM LEVEL 9.4 MG/DL (8.5-10.1); CARBON DIOXIDE LEVEL 25 MMOL/L (20-31); CHLORIDE LEVEL 103 MMOL/L (98-107); CREATININE FOR GFR 1.11 MG/DL (0.70-1.30); GLOMERULAR FILTRATION RATE > 60.0 (>60); GLUCOSE, FASTING 97 MG/DL (60-100); POTASSIUM SERUM 3.6 MMOL/L (3.5-5.1); SODIUM LEVEL 140 MMOL/L (136-145); THYROID STIMULATING HORMONE 1.597 uIU/ML (0.55-4.78); TOTAL PROTEIN 8.1 G/DL (5.7-8.2)
[2022-11-05] MEDS ORDERED: HOME MED LIST COMPLETE! XX SCH (07:30)
[2022-11-05] MEDS ORDERED: MAALOX 30 ML SUSP *UDC PO PRN (08:50)
[2022-11-05] MEDS ORDERED: MOM 30ML SUSPENSION UDC PO PRN (08:50)
[2022-11-05] MEDS ORDERED: IBUPROFEN 400MG TAB PO PRN (08:50)
[2022-11-05] MEDS ORDERED: OLANZapine 5 MG TAB PO PRN (08:50)
[2022-11-05] MEDS ORDERED: ACETAMINOPHEN TAB 650MG DOSE (2X325MG) PO PRN (08:50)
[2022-11-05 13:09] VITALS: BP 128/78
[2022-11-05 15:56] VITALS: BP 140/75
[2022-11-06 06:52] VITALS: BP 117/16
[2022-11-06] MEDS: risperiDONE 1 MG TAB PO SCH ×2 (09:00→20:21)
[2022-11-06 17:26] VITALS: BP 151/73
[2022-11-06] MEDS: traZODone 50 MG TAB PO PRN (20:20)
[2022-11-07] MEDS: risperiDONE 1 MG TAB PO SCH ×2 (09:00→21:00)
[2022-11-07 18:21] VITALS: BP 114/69
[2022-11-08 06:26] VITALS: BP 123/68
[2022-11-08 07:26] LABS: CHOLESTEROL RISK RATIO 4.36 (<5); HDL CHOLESTEROL 51.8 MG/DL (>40); LDL CHOLESTEROL 159.4 MG/DL (<100)
[2022-11-08] MEDS: risperiDONE 1 MG TAB PO SCH ×2 (09:00→20:07)
[2022-11-08 17:31] VITALS: BP 115/68
[2022-11-08] MEDS: traZODone 50 MG TAB PO PRN (20:07)
[2022-11-09 06:43] VITALS: BP 132/67
[2022-11-09] MEDS: risperiDONE 1 MG TAB PO SCH (09:00)
== END 2022-11-09 12:41 | disposition home or self-care (01) | DRG 751 ==
LOC: M ED 04:29 → M ED INP 08:48 → M PSY 13:25
PROVIDERS: ADMIT Psychiatry & Neurology Psychiatry; ATTEND Psychiatry & Neurology Psychiatry
DX: F29 Unspecified psychosis not due to a substance or known physiological condition (principal); F12.151 Cannabis abuse with psychotic disorder with hallucinations; F15.151 Other stimulant abuse with stimulant-induced psychotic disorder with hallucinations; F20.9 Schizophrenia, unspecified; Z59.00 Homelessness unspecified; Z56.0 Unemployment, unspecified; Z86.14 Personal history of Methicillin resistant Staphylococcus aureus infection; F17.210 Nicotine dependence, cigarettes, uncomplicated; Z88.2 Allergy status to sulfonamides

== ENCOUNTER 2022-11-13 12:15 | Inpatient (IN) | payer MEDICAID ==
[~2022-11-13] VITALS: Ht 175.3 cm; Wt 90.0 kg
[2022-11-13] MEDS: NICOTINE 21MG/24HR 1 EA TRANSDERMAL TD SCH (09:00)
[~2022-11-13 12:15] MED LIST changes: +NICOTINE 14 MG/24 HR TRANSDERMAL TD SCH
[2022-11-13 12:51] LABS: HEMATOCRIT 40.4 % (42.0-52.0); HEMOGLOBIN 14.1 g/dl (13.5-17.5); MEAN CORPUSCULAR HEMOGLOBIN 31.7 pg (27.0-33.0); MEAN CORPUSCULAR HGB CONC 34.9 g/dl (32.0-36.5); MEAN CORPUSCULAR VOLUME 90.8 fl (80.0-96.0); PLATELET COUNT, AUTOMATED 288 10^3/uL (150-450); RED BLOOD COUNT 4.45 10^6/uL (4.30-6.10); WHITE BLOOD COUNT 11.4 10^3/uL (4.0-10.0)
[2022-11-13 13:23] LABS: BARBITURATES URINE NEGATIVE (NEGATIVE); BENZODIAZEPINES URINE NEGATIVE (NEGATIVE); COCAINE METABOLITE URINE NEGATIVE (NEGATIVE)
[2022-11-13 13:24] LABS: ETHYL ALCOHOL (ETHANOL) < 0.003 % (0.000-0.010); METHADONE URINE NEGATIVE (NEGATIVE); OPIATES URINE NEGATIVE (NEGATIVE); PHENCYCLIDINE URINE NEGATIVE (NEGATIVE)
[2022-11-13 13:26] LABS: ACETAMINOPHEN LEVEL < 2.0 UG/ML (10.0-20.0); AMPHETAMINES LEVEL URINE POSITIVE (NEGATIVE); CANNABINOIDS URINE POSITIVE (NEGATIVE); SALICYLATE LEVEL < 3.0 MG/DL (<30)
[2022-11-13 13:30] LABS: ALBUMIN 4.7 G/DL (3.2-5.2); ALKALINE PHOSPHATASE 52 U/L (46-116); ALT/SGPT 19 U/L (7.0-40); AST/SGOT 50 U/L (<34); BILIRUBIN,DIRECT 0.4 MG/DL (<0.4); BILIRUBIN,TOTAL 1.5 MG/DL (0.3-1.2); BLOOD UREA NITROGEN 26 MG/DL (9-23); CALCIUM LEVEL 9.4 MG/DL (8.5-10.1); CARBON DIOXIDE LEVEL 24 MMOL/L (20-31); CHLORIDE LEVEL 101 MMOL/L (98-107); CREATININE FOR GFR 1.24 MG/DL (0.70-1.30); GLOMERULAR FILTRATION RATE > 60.0 (>60); GLUCOSE, FASTING 101 MG/DL (60-100); POTASSIUM SERUM 3.6 MMOL/L (3.5-5.1); SODIUM LEVEL 137 MMOL/L (136-145); THYROID STIMULATING HORMONE 0.934 uIU/ML (0.55-4.78); TOTAL PROTEIN 7.9 G/DL (5.7-8.2)
[2022-11-13] MEDS ORDERED: LORazepam 2 MG TAB PO STA (13:51)
[2022-11-13] MEDS ORDERED: LORazepam 1 MG TAB PO PRN ×2 (13:55→17:15)
[2022-11-13] MEDS ORDERED: MAALOX 30 ML SUSP *UDC PO PRN ×2 (13:55→17:15)
[2022-11-13] MEDS ORDERED: MOM 30ML SUSPENSION UDC PO PRN ×2 (13:55→17:15)
[2022-11-13] MEDS ORDERED: IBUPROFEN 400MG TAB PO PRN ×2 (13:55→17:15)
[2022-11-13] MEDS ORDERED: traZODone 50 MG TAB PO PRN ×2 (13:55→17:15)
[2022-11-13] MEDS ORDERED: diphenhydrAMINE 25MG CAP PO PRN ×2 (13:55→17:15)
[2022-11-13] MEDS ORDERED: ACETAMINOPHEN TAB 650MG DOSE (2X325MG) PO PRN (17:15)
[2022-11-13 18:37] VITALS: BP 133/90
[2022-11-13 19:16] LABS: VENOUS BASE EXCESS -0.4 (-2.0-2.0); VENOUS HCO3 25.9 MEQ/L (23.0-27.0); VENOUS O2 SATURATION 64.4 % (60.0-80.0); VENOUS PARTIAL PRESSURE CO2 48.8 mmHg (38.0-50.0); VENOUS PARTIAL PRESSURE O2 33.9 mmHg (30.0-50.0); VENOUS PH 7.343 UNITS (7.330-7.430); VENOUS STANDARD HCO3 23.3 MEQ/L; VENOUS TOTAL CO2 27.4 MEQ/L (24.0-28.0)
[2022-11-14] MEDS ORDERED: DICLOFENAC EPOLAMINE 1.3% PATCH TOP PRN (01:20)
[2022-11-14] MEDS: NICOTINE 21MG/24HR 1 EA TRANSDERMAL TD SCH (09:00)
[2022-11-14 16:18] VITALS: BP 137/77
[2022-11-15] MEDS: NICOTINE 21MG/24HR 1 EA TRANSDERMAL TD SCH (09:00)
[2022-11-15] MEDS: OLANZapine 5 MG TAB PO SCH (20:15)
[2022-11-16] MEDS: NICOTINE 21MG/24HR 1 EA TRANSDERMAL TD SCH (08:11)
[2022-11-16] MEDS: OLANZapine 5 MG TAB PO SCH (21:24)
[2022-11-17] MEDS: NICOTINE 21MG/24HR 1 EA TRANSDERMAL TD SCH (09:00)
[2022-11-17] MEDS ORDERED: TRAZ-252 PO (09:55)
[2022-11-17] MEDS ORDERED: OLAN1TAB16 PO (09:55)
== END 2022-11-17 13:05 | disposition home or self-care (01) | DRG 751 ==
LOC: M ED 12:15 → M ED INP 13:52 → M PSY 18:17
PROVIDERS: ADMIT Psychiatry & Neurology Psychiatry; ATTEND Psychiatry & Neurology Psychiatry
DX: F29 Unspecified psychosis not due to a substance or known physiological condition (principal); F12.151 Cannabis abuse with psychotic disorder with hallucinations; R45.851 Suicidal ideations; F20.9 Schizophrenia, unspecified; F15.151 Other stimulant abuse with stimulant-induced psychotic disorder with hallucinations; Z91.14 Patient's other noncompliance with medication regimen; R82.998 Other abnormal findings in urine; F17.210 Nicotine dependence, cigarettes, uncomplicated; M25.511 Pain in right shoulder; M79.621 Pain in right upper arm; Z88.2 Allergy status to sulfonamides; Z20.822 Contact with and (suspected) exposure to COVID-19; Z59.00 Homelessness unspecified; Z56.0 Unemployment, unspecified

== ENCOUNTER 2022-11-20 01:24 | Emergency (ER) | payer MEDICAID ==
[~2022-11-20] VITALS: Ht 177.8 cm; Wt 95.3 kg
[~2022-11-20 01:24] MED LIST changes: -NICOTINE 14 MG/24 HR TRANSDERMAL TD SCH
[2022-11-20] MEDS ORDERED: OLAN1TAB16 PO (02:11)
[2022-11-20] MEDS ORDERED: TRAZ-186 PO (02:11)
[2022-11-20] MEDS ORDERED: med rec comment (02:12)
[2022-11-20] MEDS ORDERED: HOME MED LIST COMPLETE! XX SCH (02:15)
[2022-11-20] MEDS ORDERED: diphenhydrAMINE 50MG/ML VIAL IM ONE ×2 (02:20→12:10)
[2022-11-20] MEDS ORDERED: MIDAZOLAM INJ 2MG/2ML VIAL IM ONE ×2 (02:20→12:10)
[2022-11-20] MEDS ORDERED: HALOPERIDOL 5MG/ML 1ML VIAL IM ONE ×2 (02:20→12:10)
[2022-11-20 03:07] LABS: HEMATOCRIT 42.4 % (42.0-52.0); HEMOGLOBIN 14.5 g/dl (13.5-17.5); MEAN CORPUSCULAR HEMOGLOBIN 31.4 pg (27.0-33.0); MEAN CORPUSCULAR HGB CONC 34.2 g/dl (32.0-36.5); MEAN CORPUSCULAR VOLUME 91.8 fl (80.0-96.0); PLATELET COUNT, AUTOMATED 352 10^3/uL (150-450); RED BLOOD COUNT 4.62 10^6/uL (4.30-6.10); WHITE BLOOD COUNT 8.3 10^3/uL (4.0-10.0)
[2022-11-20 03:31] LABS: ETHYL ALCOHOL (ETHANOL) 0.004 % (0.000-0.010)
[2022-11-20 03:33] LABS: ACETAMINOPHEN LEVEL < 2.0 UG/ML (10.0-20.0); ALBUMIN 4.6 G/DL (3.2-5.2); ALKALINE PHOSPHATASE 55 U/L (46-116); ALT/SGPT 19 U/L (7.0-40); AST/SGOT 32 U/L (<34); BILIRUBIN,DIRECT 0.3 MG/DL (<0.4); BILIRUBIN,TOTAL 0.9 MG/DL (0.3-1.2); BLOOD UREA NITROGEN 21 MG/DL (9-23); CALCIUM LEVEL 9.2 MG/DL (8.5-10.1); CARBON DIOXIDE LEVEL 25 MMOL/L (20-31); CHLORIDE LEVEL 100 MMOL/L (98-107); CREATININE FOR GFR 1.26 MG/DL (0.70-1.30); GLOMERULAR FILTRATION RATE > 60.0 (>60); GLUCOSE, FASTING 105 MG/DL (60-100); POTASSIUM SERUM 4.8 MMOL/L (3.5-5.1); SALICYLATE LEVEL < 3.0 MG/DL (<30); SODIUM LEVEL 137 MMOL/L (136-145); TOTAL PROTEIN 8.6 G/DL (5.7-8.2)
[2022-11-20 03:36] LABS: THYROID STIMULATING HORMONE 1.114 uIU/ML (0.55-4.78)
[2022-11-20 15:37] LABS: BARBITURATES URINE NEGATIVE (NEGATIVE); CANNABINOIDS URINE NEGATIVE (NEGATIVE); COCAINE METABOLITE URINE NEGATIVE (NEGATIVE); METHADONE URINE NEGATIVE (NEGATIVE); OPIATES URINE NEGATIVE (NEGATIVE); PHENCYCLIDINE URINE NEGATIVE (NEGATIVE)
[2022-11-20 15:39] LABS: AMPHETAMINES LEVEL URINE POSITIVE (NEGATIVE); BENZODIAZEPINES URINE POSITIVE (NEGATIVE)
[2022-11-21 12:53] VITALS: BP 134/68
== END 2022-11-21 13:16 | disposition home or self-care (01) ==
LOC: M ED 01:24 → EDBD 01:24 → M ED 11-21 13:16
DX: F15.10 Other stimulant abuse, uncomplicated (principal); F20.9 Schizophrenia, unspecified
CPT/HCPCS: 80048; 80076; 80143; 80307; 82077; 84443; 85027; 87635; 96372; 99285; J1200; J1630; J2250

== ENCOUNTER 2022-11-21 17:16 | Emergency (ER) | payer MEDICAID ==
[~2022-11-21] VITALS: Ht 180.3 cm; Wt 93.0 kg
[~2022-11-21 17:16] MED LIST changes: +TRAZ-186 PO; +med rec comment
[2022-11-21] MEDS ORDERED: OLANZapine ORAL DISINTEGRATING TAB 5MG PO PRN (17:50)
[2022-11-21 18:09] LABS: HEMATOCRIT 39.9 % (42.0-52.0); HEMOGLOBIN 13.6 g/dl (13.5-17.5); MEAN CORPUSCULAR HEMOGLOBIN 31.5 pg (27.0-33.0); MEAN CORPUSCULAR HGB CONC 34.1 g/dl (32.0-36.5); MEAN CORPUSCULAR VOLUME 92.4 fl (80.0-96.0); PLATELET COUNT, AUTOMATED 323 10^3/uL (150-450); RED BLOOD COUNT 4.32 10^6/uL (4.30-6.10); WHITE BLOOD COUNT 5.6 10^3/uL (4.0-10.0)
[2022-11-21 18:47] LABS: BASOPHILS 1 % (0-1); EOSINOPHILS 1 % (0-3); LYMPHOCYTES 37 % (16-44); MONOCYTES 10 % (0-5); NEUTROPHILS 51 % (28-66); PLATELET ESTIMATE NORMAL (NORMAL)
[2022-11-21 19:17] LABS: ETHYL ALCOHOL (ETHANOL) 0.004 % (0.000-0.010)
[2022-11-21 19:19] LABS: ACETAMINOPHEN LEVEL < 2.0 UG/ML (10.0-20.0); SALICYLATE LEVEL < 3.0 MG/DL (<30)
[2022-11-21 19:21] LABS: THYROID STIMULATING HORMONE 0.427 uIU/ML (0.55-4.78)
[2022-11-21 19:30] LABS: ALT/SGPT 24 U/L (7.0-40); AST/SGOT 52 U/L (<34); BLOOD UREA NITROGEN 19 MG/DL (9-23); CALCIUM LEVEL 9.2 MG/DL (8.5-10.1); CARBON DIOXIDE LEVEL 30 MMOL/L (20-31); CHLORIDE LEVEL 104 MMOL/L (98-107); CREATININE FOR GFR 1.01 MG/DL (0.70-1.30); GLOMERULAR FILTRATION RATE > 60.0 (>60); GLUCOSE, FASTING 98 MG/DL (60-100); POTASSIUM SERUM 4.4 MMOL/L (3.5-5.1); SODIUM LEVEL 139 MMOL/L (136-145)
[2022-11-21 19:31] LABS: ALBUMIN 3.7 G/DL (3.2-5.2); ALKALINE PHOSPHATASE 50 U/L (46-116); BILIRUBIN,DIRECT 0.2 MG/DL (<0.4); BILIRUBIN,TOTAL 0.5 MG/DL (0.3-1.2); CPK CREATINE PHOSPHOKINASE 2284 U/L (46-171); TOTAL PROTEIN 7.2 G/DL (5.7-8.2)
[2022-11-21 19:43] LABS: AMPHETAMINES LEVEL URINE POSITIVE (NEGATIVE); BARBITURATES URINE NEGATIVE (NEGATIVE); BENZODIAZEPINES URINE POSITIVE (NEGATIVE); CANNABINOIDS URINE POSITIVE (NEGATIVE); COCAINE METABOLITE URINE NEGATIVE (NEGATIVE); METHADONE URINE NEGATIVE (NEGATIVE); OPIATES URINE NEGATIVE (NEGATIVE); PHENCYCLIDINE URINE NEGATIVE (NEGATIVE)
[2022-11-21] MEDS ORDERED: NS 2,790 ML in IV 1 EA IV ONE (20:10)
[2022-11-22 00:45] VITALS: BP 125/71
== END 2022-11-22 02:00 | disposition home or self-care (01) ==
LOC: EDBD 17:16 → M ED 17:16
DX: Z76.5 Malingerer [conscious simulation] (principal); F19.10 Other psychoactive substance abuse, uncomplicated

== ENCOUNTER 2022-11-22 21:31 | Inpatient (IN) | payer MEDICAID ==
[~2022-11-22] VITALS: Ht 170.2 cm; Wt 98.8 kg
[2022-11-22 23:58] LABS: HEMATOCRIT 40.1 % (42.0-52.0); HEMOGLOBIN 13.3 g/dl (13.5-17.5); MEAN CORPUSCULAR HEMOGLOBIN 30.9 pg (27.0-33.0); MEAN CORPUSCULAR HGB CONC 33.2 g/dl (32.0-36.5); MEAN CORPUSCULAR VOLUME 93.3 fl (80.0-96.0); PLATELET COUNT, AUTOMATED 355 10^3/uL (150-450); WHITE BLOOD COUNT 5.7 10^3/uL (4.0-10.0)
[2022-11-23 00:01] LABS: ACETAMINOPHEN LEVEL < 2.0 UG/ML (10.0-20.0); ETHYL ALCOHOL (ETHANOL) < 0.003 % (0.000-0.010); SALICYLATE LEVEL < 3.0 MG/DL (<30)
[2022-11-23 00:07] LABS: ALBUMIN 4.2 G/DL (3.2-5.2); ALKALINE PHOSPHATASE 52 U/L (46-116); ALT/SGPT 22 U/L (7.0-40); AST/SGOT 51 U/L (<34); BILIRUBIN,DIRECT 0.2 MG/DL (<0.4); BILIRUBIN,TOTAL 0.6 MG/DL (0.3-1.2); BLOOD UREA NITROGEN 10 MG/DL (9-23); CARBON DIOXIDE LEVEL 27 MMOL/L (20-31); CHLORIDE LEVEL 102 MMOL/L (98-107); CREATININE FOR GFR 0.86 MG/DL (0.70-1.30); GLOMERULAR FILTRATION RATE > 60.0 (>60); GLUCOSE, FASTING 105 MG/DL (60-100); POTASSIUM SERUM 3.5 MMOL/L (3.5-5.1); SODIUM LEVEL 138 MMOL/L (136-145); THYROID STIMULATING HORMONE 0.815 uIU/ML (0.55-4.78); TOTAL PROTEIN 7.8 G/DL (5.7-8.2)
[2022-11-23 01:07] LABS: BARBITURATES URINE NEGATIVE (NEGATIVE); BENZODIAZEPINES URINE NEGATIVE (NEGATIVE); COCAINE METABOLITE URINE NEGATIVE (NEGATIVE); METHADONE URINE NEGATIVE (NEGATIVE); OPIATES URINE NEGATIVE (NEGATIVE); PHENCYCLIDINE URINE NEGATIVE (NEGATIVE)
[2022-11-23 01:16] LABS: AMPHETAMINES LEVEL URINE POSITIVE (NEGATIVE); CANNABINOIDS URINE POSITIVE (NEGATIVE)
[2022-11-23 08:54] VITALS: BP 158/94
[2022-11-23] MEDS ORDERED: OLANZapine 5 MG TAB PO ONE (10:40)
[2022-11-23] MEDS ORDERED: OLANZapine INTRAMUSCULAR 10MG VIAL IM ONE (10:45)
[2022-11-23] MEDS ORDERED: MIDAZOLAM INJ 2MG/2ML VIAL IM ONE (14:35)
[2022-11-23] MEDS ORDERED: LORazepam 2 MG/ML 1ML VIAL IM STA (16:16)
[2022-11-23] MEDS ORDERED: HALOPERIDOL 5MG/ML 1ML VIAL IM STA (16:16)
[2022-11-23] MEDS ORDERED: diphenhydrAMINE 50MG/ML VIAL IM STA (16:16)
[2022-11-23] MEDS ORDERED: HOME MED LIST COMPLETE! XX SCH (16:45)
[2022-11-23] MEDS ORDERED: MOM 30ML SUSPENSION UDC PO PRN (16:50)
[2022-11-23] MEDS ORDERED: ACETAMINOPHEN TAB 650MG DOSE (2X325MG) PO PRN (16:50)
[2022-11-23] MEDS ORDERED: LORazepam 1 MG TAB PO PRN (16:50)
[2022-11-23] MEDS ORDERED: MAALOX 30 ML SUSP *UDC PO PRN (16:50)
[2022-11-23] MEDS ORDERED: traZODone 50 MG TAB PO PRN (16:50)
[2022-11-23] MEDS ORDERED: OLANZapine ORAL DISINTEGRATING TAB 5MG PO PRN (16:50)
[2022-11-24] MEDS: DIVALPROEX 500MG *ER* TAB PO SCH (09:00)
[2022-11-24] MEDS: OLANZapine 5 MG TAB PO SCH (21:00)
[2022-11-25] MEDS: OLANZapine 5 MG TAB PO SCH ×2 (09:00→20:33)
[2022-11-25] MEDS: DIVALPROEX 500MG *ER* TAB PO SCH (09:00)
[2022-11-26] MEDS: DIVALPROEX 500MG *ER* TAB PO SCH (09:00)
[2022-11-26] MEDS: OLANZapine 5 MG TAB PO SCH ×2 (09:00→20:23)
[2022-11-27] MEDS ORDERED: LIDOCAINE 2% 100MG/5ML SDV (FOR ANES.) As Ordered ONE (07:08)
[2022-11-27] MEDS ORDERED: propofoL 200 MG/20 ML VIAL As Ordered ONE (07:08)
[2022-11-27] MEDS: DIVALPROEX 500MG *ER* TAB PO SCH (10:29)
[2022-11-27] MEDS: OLANZapine 5 MG TAB PO SCH (10:30)
== END 2022-11-27 13:43 | disposition home or self-care (01) | DRG 776 ==
LOC: M ED 21:31 → M ED INP 11-23 16:47 → M PSY 11-23 22:28
PROVIDERS: ADMIT Student in an Organized Health Care Education/Training Program; ATTEND Psychiatry & Neurology Psychiatry
DX: F15.159 Other stimulant abuse with stimulant-induced psychotic disorder, unspecified (principal); Z78.1 Physical restraint status; F20.9 Schizophrenia, unspecified; F29 Unspecified psychosis not due to a substance or known physiological condition; F60.2 Antisocial personality disorder; F43.20 Adjustment disorder, unspecified; F12.10 Cannabis abuse, uncomplicated; Z88.2 Allergy status to sulfonamides; Z59.00 Homelessness unspecified; Z91.14 Patient's other noncompliance with medication regimen

== ENCOUNTER 2022-12-11 22:49 | Emergency (ER) | payer MEDICAID ==
[~2022-12-11] VITALS: Ht 180.3 cm; Wt 90.9 kg
[2022-12-11 23:46] LABS: HEMATOCRIT 37.2 % (42.0-52.0); HEMOGLOBIN 12.8 g/dl (13.5-17.5); MEAN CORPUSCULAR HEMOGLOBIN 31.3 pg (27.0-33.0); MEAN CORPUSCULAR HGB CONC 34.4 g/dl (32.0-36.5); PLATELET COUNT, AUTOMATED 317 10^3/uL (150-450); RED BLOOD COUNT 4.09 10^6/uL (4.30-6.10)
[2022-12-12 00:07] LABS: ETHYL ALCOHOL (ETHANOL) 0.003 % (0.000-0.010)
[2022-12-12 00:08] LABS: ACETAMINOPHEN LEVEL < 2.0 UG/ML (10.0-20.0)
[2022-12-12 00:09] LABS: ALBUMIN 4.1 G/DL (3.2-5.2); ALKALINE PHOSPHATASE 49 U/L (46-116); ALT/SGPT 13 U/L (7.0-40); AST/SGOT 19 U/L (<34); BILIRUBIN,DIRECT 0.2 MG/DL (<0.4); BILIRUBIN,TOTAL 0.5 MG/DL (0.3-1.2); BLOOD UREA NITROGEN 10 MG/DL (9-23); CALCIUM LEVEL 9.1 MG/DL (8.5-10.1); CARBON DIOXIDE LEVEL 27 MMOL/L (20-31); CHLORIDE LEVEL 104 MMOL/L (98-107); CREATININE FOR GFR 1.08 MG/DL (0.70-1.30); GLOMERULAR FILTRATION RATE > 60.0 (>60); GLUCOSE, FASTING 103 MG/DL (60-100); POTASSIUM SERUM 3.2 MMOL/L (3.5-5.1); SALICYLATE LEVEL < 3.0 MG/DL (<30); SODIUM LEVEL 139 MMOL/L (136-145); TOTAL PROTEIN 7.5 G/DL (5.7-8.2)
[2022-12-12 00:11] LABS: THYROID STIMULATING HORMONE 1.155 uIU/ML (0.55-4.78)
[2022-12-12] MEDS ORDERED: POTASSIUM CHLORIDE 10MEQ SR TABLET PO ONE (01:10)
[2022-12-12 02:03] LABS: BARBITURATES URINE NEGATIVE (NEGATIVE); BENZODIAZEPINES URINE NEGATIVE (NEGATIVE); COCAINE METABOLITE URINE NEGATIVE (NEGATIVE); METHADONE URINE NEGATIVE (NEGATIVE); OPIATES URINE NEGATIVE (NEGATIVE); PHENCYCLIDINE URINE NEGATIVE (NEGATIVE)
[2022-12-12 02:12] LABS: AMPHETAMINES LEVEL URINE POSITIVE (NEGATIVE); CANNABINOIDS URINE POSITIVE (NEGATIVE)
[2022-12-12 03:33] VITALS: BP 159/87
== END 2022-12-12 04:07 | disposition home or self-care (01) ==
LOC: M ED 22:49
DX: Z04.6 Encounter for general psychiatric examination, requested by authority (principal); F20.9 Schizophrenia, unspecified; F19.10 Other psychoactive substance abuse, uncomplicated; F43.20 Adjustment disorder, unspecified; F17.200 Nicotine dependence, unspecified, uncomplicated

== ENCOUNTER 2022-12-24 20:53 | Emergency (ER) | payer MEDICAID ==
[~2022-12-24] VITALS: Ht 170.2 cm; Wt 98.0 kg
[2022-12-24] MEDS ORDERED: HOME MED LIST COMPLETE! XX SCH (22:35)
[2022-12-24 22:45] LABS: HEMOGLOBIN 12.9 g/dl (13.5-17.5); MEAN CORPUSCULAR HEMOGLOBIN 31.5 pg (27.0-33.0); MEAN CORPUSCULAR HGB CONC 33.1 g/dl (32.0-36.5); MEAN CORPUSCULAR VOLUME 95.1 fl (80.0-96.0); PLATELET COUNT, AUTOMATED 304 10^3/uL (150-450); WHITE BLOOD COUNT 6.7 10^3/uL (4.0-10.0)
[2022-12-24 23:00] VITALS: BP 149/94
[2022-12-24 23:02] LABS: ETHYL ALCOHOL (ETHANOL) < 0.003 % (0.000-0.010)
[2022-12-24 23:04] LABS: ACETAMINOPHEN LEVEL < 2.0 UG/ML (10.0-20.0); ALBUMIN 4.2 G/DL (3.2-5.2); ALKALINE PHOSPHATASE 51 U/L (46-116); ALT/SGPT 25 U/L (7.0-40); AST/SGOT 37 U/L (<34); BILIRUBIN,DIRECT 0.3 MG/DL (<0.4); BILIRUBIN,TOTAL 0.7 MG/DL (0.3-1.2); BLOOD UREA NITROGEN 21 MG/DL (9-23); CALCIUM LEVEL 9.2 MG/DL (8.5-10.1); CARBON DIOXIDE LEVEL 28 MMOL/L (20-31); CHLORIDE LEVEL 104 MMOL/L (98-107); CREATININE FOR GFR 1.09 MG/DL (0.70-1.30); GLOMERULAR FILTRATION RATE > 60.0 (>60); GLUCOSE, FASTING 109 MG/DL (60-100); POTASSIUM SERUM 4.2 MMOL/L (3.5-5.1); SALICYLATE LEVEL < 3.0 MG/DL (<30); SODIUM LEVEL 141 MMOL/L (136-145); TOTAL PROTEIN 8.1 G/DL (5.7-8.2)
[2022-12-24 23:06] LABS: THYROID STIMULATING HORMONE 0.906 uIU/ML (0.55-4.78)
== END 2022-12-25 16:06 | disposition home or self-care (01) ==
LOC: M ED 20:53
DX: F60.9 Personality disorder, unspecified (principal); F19.10 Other psychoactive substance abuse, uncomplicated; F20.9 Schizophrenia, unspecified

== ENCOUNTER 2022-12-25 17:18 | Inpatient (IN) | payer MEDICAID ==
[~2022-12-25] VITALS: Ht 177.8 cm; Wt 84.4 kg
[2022-12-25] MEDS ORDERED: LORazepam 2 MG/ML 1ML VIAL IM STA (17:22)
[2022-12-25 18:00] LABS: HEMATOCRIT 39.9 % (42.0-52.0); HEMOGLOBIN 13.6 g/dl (13.5-17.5); MEAN CORPUSCULAR HEMOGLOBIN 31.6 pg (27.0-33.0); MEAN CORPUSCULAR HGB CONC 34.1 g/dl (32.0-36.5); MEAN CORPUSCULAR VOLUME 92.6 fl (80.0-96.0); PLATELET COUNT, AUTOMATED 292 10^3/uL (150-450); RED BLOOD COUNT 4.31 10^6/uL (4.30-6.10); WHITE BLOOD COUNT 4.1 10^3/uL (4.0-10.0)
[2022-12-25] MEDS ORDERED: HOME MED LIST COMPLETE! XX SCH (18:15)
[2022-12-25 18:27] LABS: ETHYL ALCOHOL (ETHANOL) < 0.003 % (0.000-0.010)
[2022-12-25 18:29] LABS: ACETAMINOPHEN LEVEL < 2.0 UG/ML (10.0-20.0); SALICYLATE LEVEL < 3.0 MG/DL (<30)
[2022-12-25 18:31] LABS: THYROID STIMULATING HORMONE 0.444 uIU/ML (0.55-4.78)
[2022-12-25 18:32] LABS: ALBUMIN 3.6 G/DL (3.2-5.2); ALKALINE PHOSPHATASE 48 U/L (46-116); ALT/SGPT 21 U/L (7.0-40); AST/SGOT 26 U/L (<34); BILIRUBIN,DIRECT 0.3 MG/DL (<0.4); BILIRUBIN,TOTAL 0.7 MG/DL (0.3-1.2); BLOOD UREA NITROGEN 18 MG/DL (9-23); CALCIUM LEVEL 8.6 MG/DL (8.5-10.1); CARBON DIOXIDE LEVEL 28 MMOL/L (20-31); CHLORIDE LEVEL 106 MMOL/L (98-107); CREATININE FOR GFR 0.87 MG/DL (0.70-1.30); GLOMERULAR FILTRATION RATE > 60.0 (>60); GLUCOSE, FASTING 95 MG/DL (60-100); SODIUM LEVEL 140 MMOL/L (136-145); TOTAL PROTEIN 6.8 G/DL (5.7-8.2)
[2022-12-25 18:57] LABS: BARBITURATES URINE NEGATIVE (NEGATIVE); BENZODIAZEPINES URINE NEGATIVE (NEGATIVE); METHADONE URINE NEGATIVE (NEGATIVE); OPIATES URINE NEGATIVE (NEGATIVE); PHENCYCLIDINE URINE NEGATIVE (NEGATIVE)
[2022-12-25 19:00] LABS: AMPHETAMINES LEVEL URINE POSITIVE (NEGATIVE); CANNABINOIDS URINE POSITIVE (NEGATIVE); COCAINE METABOLITE URINE POSITIVE (NEGATIVE)
[2022-12-26] MEDS: THIAMINE 100 MG TAB PO SCH (21:00)
[2022-12-26] MEDS ORDERED: ACETAMINOPHEN TAB 650MG DOSE (2X325MG) PO PRN (21:45)
[2022-12-26] MEDS ORDERED: MAALOX 30 ML SUSP *UDC PO PRN (21:45)
[2022-12-26] MEDS ORDERED: OLANZapine ORAL DISINTEGRATING TAB 5MG PO PRN (21:45)
[2022-12-26] MEDS ORDERED: LORazepam 2 MG TAB PO PRN (21:45)
[2022-12-26] MEDS ORDERED: MOM 30ML SUSPENSION UDC PO PRN (21:45)
[2022-12-26] MEDS ORDERED: NICOTINE 21MG/24HR 1 EA TRANSDERMAL TD PRN (21:45)
[2022-12-26 22:32] VITALS: BP 135/83
[2022-12-26 22:34] VITALS: BP 135/83
[2022-12-27 06:13] VITALS: BP 121/72
[2022-12-27 06:20] VITALS: BP 121/72
[2022-12-27] MEDS ORDERED: MULTIVITAMINS/MINERALS THERAP 1 TAB PO SCH (09:00)
[2022-12-27] MEDS ORDERED: FOLIC ACID 1MG TAB PO SCH (09:00)
[2022-12-27] MEDS: THIAMINE 100 MG TAB PO SCH ×2 (09:00→21:00)
[2022-12-27] MEDS: OLANZapine 5 MG TAB PO SCH ×2 (09:00→21:00)
[2022-12-28] MEDS: THIAMINE 100 MG TAB PO SCH ×2 (09:00→20:21)
[2022-12-28] MEDS: OLANZapine 5 MG TAB PO SCH ×2 (09:00→20:21)
[2022-12-28 18:25] VITALS: BP 148/80
[2022-12-29 06:44] VITALS: BP 150/91
[2022-12-29] MEDS: THIAMINE 100 MG TAB PO SCH (09:00)
[2022-12-29] MEDS: OLANZapine 5 MG TAB PO SCH (21:06)
[2022-12-30] MEDS: OLANZapine 5 MG TAB PO SCH (21:33)
[2022-12-31] MEDS: OLANZapine 5 MG TAB PO SCH (20:23)
[2023-01-01] MEDS ORDERED: OLAN15TA13 PO (07:55)
[2023-01-01] MEDS ORDERED: NICO21PAT TD (07:55)
[2023-01-01] MEDS ORDERED: OLAN5ZYD PO (11:57)
== END 2023-01-01 13:35 | disposition home or self-care (01) | DRG 774 ==
LOC: EDBD 17:18 → M ED 17:18 → M ED INP 12-26 20:22 → M PSY 12-26 22:21
PROVIDERS: ADMIT Psychiatry & Neurology Psychiatry; ATTEND Student in an Organized Health Care Education/Training Program
DX: F14.150 Cocaine abuse with cocaine-induced psychotic disorder with delusions (principal); F15.150 Other stimulant abuse with stimulant-induced psychotic disorder with delusions; F20.9 Schizophrenia, unspecified; F60.2 Antisocial personality disorder; R45.850 Homicidal ideations; Z59.00 Homelessness unspecified; Z56.0 Unemployment, unspecified; Z88.2 Allergy status to sulfonamides; F17.200 Nicotine dependence, unspecified, uncomplicated

== ENCOUNTER 2023-01-04 23:35 | Emergency (ER) | payer MEDICAID ==
[~2023-01-04] VITALS: Ht 177.8 cm; Wt 85.3 kg
[~2023-01-04 23:35] MED LIST changes: +OLAN15TA13 PO
[2023-01-04 23:45] VITALS: BP 136/101
[2023-01-05 03:13] LABS: HEMATOCRIT 38.8 % (42.0-52.0); HEMOGLOBIN 13.1 g/dl (13.5-17.5); MEAN CORPUSCULAR HEMOGLOBIN 31.2 pg (27.0-33.0); MEAN CORPUSCULAR HGB CONC 33.8 g/dl (32.0-36.5); MEAN CORPUSCULAR VOLUME 92.4 fl (80.0-96.0); PLATELET COUNT, AUTOMATED 282 10^3/uL (150-450)
[2023-01-05 03:42] LABS: BARBITURATES URINE NEGATIVE (NEGATIVE); BENZODIAZEPINES URINE NEGATIVE (NEGATIVE); METHADONE URINE NEGATIVE (NEGATIVE); OPIATES URINE NEGATIVE (NEGATIVE); PHENCYCLIDINE URINE NEGATIVE (NEGATIVE)
[2023-01-05 03:45] LABS: ETHYL ALCOHOL (ETHANOL) < 0.003 % (0.000-0.010)
[2023-01-05 03:46] LABS: SALICYLATE LEVEL < 3.0 MG/DL (<30)
[2023-01-05 03:47] LABS: ACETAMINOPHEN LEVEL < 2.0 UG/ML (10.0-20.0); ALBUMIN 4.4 G/DL (3.2-5.2); ALKALINE PHOSPHATASE 50 U/L (46-116); ALT/SGPT 25 U/L (7.0-40); AST/SGOT 38 U/L (<34); BILIRUBIN,DIRECT 0.4 MG/DL (<0.4); BILIRUBIN,TOTAL 1.1 MG/DL (0.3-1.2); BLOOD UREA NITROGEN 22 MG/DL (9-23); CALCIUM LEVEL 9.2 MG/DL (8.5-10.1); CARBON DIOXIDE LEVEL 23 MMOL/L (20-31); CHLORIDE LEVEL 104 MMOL/L (98-107); CREATININE FOR GFR 1.06 MG/DL (0.70-1.30); GLOMERULAR FILTRATION RATE > 60.0 (>60); GLUCOSE, FASTING 83 MG/DL (60-100); POTASSIUM SERUM 4.1 MMOL/L (3.5-5.1); SODIUM LEVEL 138 MMOL/L (136-145); TOTAL PROTEIN 7.9 G/DL (5.7-8.2)
[2023-01-05 03:47] LABS: AMPHETAMINES LEVEL URINE POSITIVE (NEGATIVE); CANNABINOIDS URINE POSITIVE (NEGATIVE); COCAINE METABOLITE URINE POSITIVE (NEGATIVE)
== END 2023-01-05 15:17 | disposition home or self-care (01) ==
LOC: EDBD 23:35 → M ED 23:35
DX: F19.120 Other psychoactive substance abuse with intoxication, uncomplicated (principal); Z88.2 Allergy status to sulfonamides; Z79.899 Other long term (current) drug therapy

== ENCOUNTER 2023-01-14 20:33 | Emergency (ER) | payer MEDICAID ==
[2023-01-14 20:51] VITALS: BP 171/89
[2023-01-14] MEDS ORDERED: MULTIVITAMIN -ADULT INJECTION 10 ML, THIAMINE INJection 100 MG, FOLIC ACID 1 MG in NS 1... IV ONE (21:40)
[2023-01-14] MEDS ORDERED: NS 1,000 ML IV ONE (21:40)
== END 2023-01-14 22:43 | disposition home or self-care (01) ==
LOC: M ED 20:33
DX: S00.01XA Abrasion of scalp, initial encounter (principal); Y00.XXXA Assault by blunt object, initial encounter; Y92.89 Other specified places as the place of occurrence of the external cause; Y93.89 Activity, other specified; Y99.8 Other external cause status; G43.909 Migraine, unspecified, not intractable, without status migrainosus; F32.A Depression, unspecified; F20.9 Schizophrenia, unspecified; Z88.2 Allergy status to sulfonamides; Z87.891 Personal history of nicotine dependence; Z79.899 Other long term (current) drug therapy

== ENCOUNTER 2023-01-14 23:17 | Emergency (ER) | payer MEDICAID ==
[2023-01-15 00:15] LABS: HEMATOCRIT 38.4 % (42.0-52.0); HEMOGLOBIN 13.1 g/dl (13.5-17.5); MEAN CORPUSCULAR HEMOGLOBIN 31.4 pg (27.0-33.0); MEAN CORPUSCULAR HGB CONC 34.1 g/dl (32.0-36.5); MEAN CORPUSCULAR VOLUME 92.1 fl (80.0-96.0); PLATELET COUNT, AUTOMATED 345 10^3/uL (150-450); RED BLOOD COUNT 4.17 10^6/uL (4.30-6.10); WHITE BLOOD COUNT 7.1 10^3/uL (4.0-10.0)
[2023-01-15 00:16] LABS: BARBITURATES URINE NEGATIVE (NEGATIVE); BENZODIAZEPINES URINE NEGATIVE (NEGATIVE); COCAINE METABOLITE URINE NEGATIVE (NEGATIVE)
[2023-01-15 00:17] LABS: METHADONE URINE NEGATIVE (NEGATIVE); OPIATES URINE NEGATIVE (NEGATIVE); PHENCYCLIDINE URINE NEGATIVE (NEGATIVE)
[2023-01-15 00:19] LABS: ETHYL ALCOHOL (ETHANOL) < 0.003 % (0.000-0.010)
[2023-01-15 00:20] LABS: ACETAMINOPHEN LEVEL < 2.0 UG/ML (10.0-20.0); ALBUMIN 4.4 G/DL (3.2-5.2); ALKALINE PHOSPHATASE 49 U/L (46-116); ALT/SGPT 26 U/L (7.0-40); AMPHETAMINES LEVEL URINE POSITIVE (NEGATIVE); AST/SGOT 36 U/L (<34); BILIRUBIN,DIRECT 0.4 MG/DL (<0.4); BILIRUBIN,TOTAL 1.1 MG/DL (0.3-1.2); BLOOD UREA NITROGEN 17 MG/DL (9-23); CALCIUM LEVEL 9.5 MG/DL (8.5-10.1); CANNABINOIDS URINE POSITIVE (NEGATIVE); CARBON DIOXIDE LEVEL 25 MMOL/L (20-31); CHLORIDE LEVEL 105 MMOL/L (98-107); CREATININE FOR GFR 0.91 MG/DL (0.70-1.30); GLOMERULAR FILTRATION RATE > 60.0 (>60); GLUCOSE, FASTING 96 MG/DL (60-100); POTASSIUM SERUM 4.1 MMOL/L (3.5-5.1); SALICYLATE LEVEL < 3.0 MG/DL (<30); SODIUM LEVEL 140 MMOL/L (136-145); TOTAL PROTEIN 7.7 G/DL (5.7-8.2)
[2023-01-15 00:22] LABS: THYROID STIMULATING HORMONE 0.593 uIU/ML (0.55-4.78)
[2023-01-15 12:42] VITALS: BP 159/86
== END 2023-01-15 14:24 | disposition home or self-care (01) ==
LOC: M ED 23:17
DX: F25.9 Schizoaffective disorder, unspecified (principal); F19.10 Other psychoactive substance abuse, uncomplicated; G43.909 Migraine, unspecified, not intractable, without status migrainosus; F17.200 Nicotine dependence, unspecified, uncomplicated; F12.10 Cannabis abuse, uncomplicated; F10.10 Alcohol abuse, uncomplicated; Z88.2 Allergy status to sulfonamides; Z79.899 Other long term (current) drug therapy

== ENCOUNTER 2023-01-18 02:40 | Emergency (ER) | payer MEDICAID ==
[~2023-01-18] VITALS: Ht 177.8 cm; Wt 81.1 kg
[2023-01-18 03:14] LABS: HEMATOCRIT 38.9 % (42.0-52.0); HEMOGLOBIN 13.1 g/dl (13.5-17.5); MEAN CORPUSCULAR HEMOGLOBIN 31.3 pg (27.0-33.0); MEAN CORPUSCULAR HGB CONC 33.7 g/dl (32.0-36.5); MEAN CORPUSCULAR VOLUME 93.1 fl (80.0-96.0); PLATELET COUNT, AUTOMATED 341 10^3/uL (150-450); RED BLOOD COUNT 4.18 10^6/uL (4.30-6.10); WHITE BLOOD COUNT 8.7 10^3/uL (4.0-10.0)
[2023-01-18 03:36] LABS: ETHYL ALCOHOL (ETHANOL) < 0.003 % (0.000-0.010)
[2023-01-18 03:38] LABS: SALICYLATE LEVEL < 3.0 MG/DL (<30)
[2023-01-18 03:39] LABS: ACETAMINOPHEN LEVEL < 2.0 UG/ML (10.0-20.0); ALBUMIN 4.2 G/DL (3.2-5.2); ALKALINE PHOSPHATASE 49 U/L (46-116); ALT/SGPT 21 U/L (7.0-40); AST/SGOT 33 U/L (<34); BILIRUBIN,DIRECT 0.3 MG/DL (<0.4); BILIRUBIN,TOTAL 0.9 MG/DL (0.3-1.2); BLOOD UREA NITROGEN 27 MG/DL (9-23); CALCIUM LEVEL 8.8 MG/DL (8.5-10.1); CARBON DIOXIDE LEVEL 25 MMOL/L (20-31); CHLORIDE LEVEL 105 MMOL/L (98-107); GLOMERULAR FILTRATION RATE > 60.0 (>60); GLUCOSE, FASTING 94 MG/DL (60-100); POTASSIUM SERUM 4.3 MMOL/L (3.5-5.1); SODIUM LEVEL 142 MMOL/L (136-145); TOTAL PROTEIN 7.6 G/DL (5.7-8.2)
[2023-01-18 03:40] LABS: THYROID STIMULATING HORMONE 0.493 uIU/ML (0.55-4.78)
[2023-01-18] MEDS ORDERED: OLANZapine ORAL DISINTEGRATING TAB 5MG PO ONE (03:45)
[2023-01-18 04:17] VITALS: BP 127/84
[2023-01-19] MEDS ORDERED: OLAN15TA13 PO (15:24)
[2023-01-19] MEDS ORDERED: OLAN5ZYD PO (15:24)
== END 2023-01-18 15:05 | disposition home or self-care (01) ==
LOC: M ED 02:40
DX: F19.10 Other psychoactive substance abuse, uncomplicated (principal); G43.909 Migraine, unspecified, not intractable, without status migrainosus; F32.A Depression, unspecified; F20.9 Schizophrenia, unspecified; F17.200 Nicotine dependence, unspecified, uncomplicated

== ENCOUNTER 2023-01-19 00:11 | Emergency (ER) | payer MEDICAID ==
[~2023-01-19] VITALS: Ht 177.8 cm; Wt 82.4 kg
[2023-01-19 07:52] LABS: HEMATOCRIT 39.7 % (42.0-52.0); HEMOGLOBIN 13.3 g/dl (13.5-17.5); MEAN CORPUSCULAR HEMOGLOBIN 31.1 pg (27.0-33.0); MEAN CORPUSCULAR HGB CONC 33.5 g/dl (32.0-36.5); PLATELET COUNT, AUTOMATED 311 10^3/uL (150-450); RED BLOOD COUNT 4.27 10^6/uL (4.30-6.10); WHITE BLOOD COUNT 4.5 10^3/uL (4.0-10.0)
[2023-01-19 08:16] LABS: ETHYL ALCOHOL (ETHANOL) < 0.003 % (0.000-0.010)
[2023-01-19 08:18] LABS: ACETAMINOPHEN LEVEL < 2.0 UG/ML (10.0-20.0); SALICYLATE LEVEL < 3.0 MG/DL (<30)
[2023-01-19 08:19] LABS: THYROID STIMULATING HORMONE 0.425 uIU/ML (0.55-4.78)
[2023-01-19 08:22] LABS: ALBUMIN 3.4 G/DL (3.2-5.2); ALKALINE PHOSPHATASE 56 U/L (46-116); ALT/SGPT 20 U/L (7.0-40); AST/SGOT 25 U/L (<34); BILIRUBIN,DIRECT 0.2 MG/DL (<0.4); BILIRUBIN,TOTAL 0.4 MG/DL (0.3-1.2); BLOOD UREA NITROGEN 20 MG/DL (9-23); CALCIUM LEVEL 8.6 MG/DL (8.5-10.1); CARBON DIOXIDE LEVEL 30 MMOL/L (20-31); CHLORIDE LEVEL 109 MMOL/L (98-107); CREATININE FOR GFR 0.77 MG/DL (0.70-1.30); GLOMERULAR FILTRATION RATE > 60.0 (>60); GLUCOSE, FASTING 101 MG/DL (60-100); POTASSIUM SERUM 3.9 MMOL/L (3.5-5.1); SODIUM LEVEL 146 MMOL/L (136-145); TOTAL PROTEIN 6.7 G/DL (5.7-8.2)
[2023-01-19 14:48] LABS: BARBITURATES URINE NEGATIVE (NEGATIVE); BENZODIAZEPINES URINE NEGATIVE (NEGATIVE); COCAINE METABOLITE URINE NEGATIVE (NEGATIVE); METHADONE URINE NEGATIVE (NEGATIVE); OPIATES URINE NEGATIVE (NEGATIVE); PHENCYCLIDINE URINE NEGATIVE (NEGATIVE)
[2023-01-19 14:53] LABS: AMPHETAMINES LEVEL URINE POSITIVE (NEGATIVE); CANNABINOIDS URINE POSITIVE (NEGATIVE)
[2023-01-19] MEDS ORDERED: OLAN15TA13 PO (15:24)
[2023-01-19] MEDS ORDERED: OLAN5ZYD PO (15:24)
[2023-01-19] MEDS ORDERED: HOME MED LIST COMPLETE! XX SCH (15:25)
[2023-01-20 05:42] VITALS: BP 146/86
== END 2023-01-20 10:21 | disposition home or self-care (01) ==
LOC: M ED 00:11
DX: F60.9 Personality disorder, unspecified (principal); Z76.5 Malingerer [conscious simulation]; F32.A Depression, unspecified; F20.9 Schizophrenia, unspecified; F41.9 Anxiety disorder, unspecified; F17.200 Nicotine dependence, unspecified, uncomplicated; Z88.2 Allergy status to sulfonamides

== ENCOUNTER 2023-01-20 22:35 | Emergency (ER) | payer MEDICAID ==
[~2023-01-20] VITALS: Ht 180.3 cm; Wt 86.7 kg
[2023-01-20] MEDS ORDERED: HOME MED LIST COMPLETE! XX SCH (23:05)
[2023-01-20 23:25] LABS: HEMATOCRIT 40.1 % (42.0-52.0); HEMOGLOBIN 13.1 g/dl (13.5-17.5); MEAN CORPUSCULAR HEMOGLOBIN 30.8 pg (27.0-33.0); MEAN CORPUSCULAR HGB CONC 32.7 g/dl (32.0-36.5); MEAN CORPUSCULAR VOLUME 94.1 fl (80.0-96.0); PLATELET COUNT, AUTOMATED 310 10^3/uL (150-450); RED BLOOD COUNT 4.26 10^6/uL (4.30-6.10)
[2023-01-20 23:36] VITALS: BP 132/77
[2023-01-20 23:44] LABS: ETHYL ALCOHOL (ETHANOL) < 0.003 % (0.000-0.010)
[2023-01-20 23:45] LABS: ACETAMINOPHEN LEVEL < 2.0 UG/ML (10.0-20.0); SALICYLATE LEVEL < 3.0 MG/DL (<30)
[2023-01-20 23:55] LABS: ALBUMIN 3.9 G/DL (3.2-5.2); ALKALINE PHOSPHATASE 46 U/L (46-116); ALT/SGPT 22 U/L (7.0-40); AST/SGOT 24 U/L (<34); BILIRUBIN,DIRECT 0.1 MG/DL (<0.4); BILIRUBIN,TOTAL 0.3 MG/DL (0.3-1.2); BLOOD UREA NITROGEN 12 MG/DL (9-23); CALCIUM LEVEL 9.2 MG/DL (8.5-10.1); CARBON DIOXIDE LEVEL 30 MMOL/L (20-31); CHLORIDE LEVEL 104 MMOL/L (98-107); CREATININE FOR GFR 0.86 MG/DL (0.70-1.30); GLOMERULAR FILTRATION RATE > 60.0 (>60); GLUCOSE, FASTING 91 MG/DL (60-100); POTASSIUM SERUM 3.9 MMOL/L (3.5-5.1); SODIUM LEVEL 140 MMOL/L (136-145); THYROID STIMULATING HORMONE 0.965 uIU/ML (0.55-4.78); TOTAL PROTEIN 7.2 G/DL (5.7-8.2)
== END 2023-01-21 08:10 | disposition home or self-care (01) ==
LOC: M ED 22:35
DX: Z76.5 Malingerer [conscious simulation] (principal); F60.3 Borderline personality disorder; Z88.2 Allergy status to sulfonamides; Z79.899 Other long term (current) drug therapy

== ENCOUNTER 2024-10-02 18:59 | Inpatient (IN) | payer MEDICAID ==
[~2024-10-02] VITALS: Ht 182.9 cm; Wt 100.0 kg
[~2024-10-02 18:59] MED LIST changes: -OLAN15TA13 PO; +OLAN15TA69 PO; +RISP-105 PO; +RISP-106 PO; -RISP-7 PO; -RISP-8 PO; -RISP-9 PO; +RISP0.5T82 PO
[2024-10-02 20:18] LABS: HEMATOCRIT 40.1 % (42.0-52.0); HEMOGLOBIN 13.9 g/dl (13.5-17.5); MEAN CORPUSCULAR HEMOGLOBIN 31.8 pg (27.0-33.0); MEAN CORPUSCULAR HGB CONC 34.7 g/dl (32.0-36.5); MEAN CORPUSCULAR VOLUME 91.8 fl (80.0-96.0); PLATELET COUNT, AUTOMATED 231 10^3/uL (150-450); RED BLOOD COUNT 4.37 10^6/uL (4.30-6.10); WHITE BLOOD COUNT 8.9 10^3/uL (4.0-10.0)
[2024-10-02 20:22] LABS: BARBITURATES URINE NEGATIVE (NEGATIVE); BENZODIAZEPINES URINE NEGATIVE (NEGATIVE); COCAINE METABOLITE URINE NEGATIVE (NEGATIVE); METHADONE URINE NEGATIVE (NEGATIVE); OPIATES URINE NEGATIVE (NEGATIVE); PHENCYCLIDINE URINE NEGATIVE (NEGATIVE)
[2024-10-02 20:25] LABS: AMPHETAMINES LEVEL URINE POSITIVE (NEGATIVE); CANNABINOIDS URINE POSITIVE (NEGATIVE)
[2024-10-02 20:50] LABS: ETHYL ALCOHOL (ETHANOL) < 0.003 % (0.000-0.010)
[2024-10-02 20:51] LABS: SALICYLATE LEVEL < 3.0 MG/DL (<30)
[2024-10-02 20:52] LABS: ALBUMIN 4.4 G/DL (3.2-5.2); ALKALINE PHOSPHATASE 59 U/L (40-129); ALT/SGPT 45 U/L (7.0-40); AST/SGOT 75 U/L (<34); BILIRUBIN,DIRECT 0.7 MG/DL (<0.4); BILIRUBIN,TOTAL 1.8 MG/DL (0.3-1.2); BLOOD UREA NITROGEN 21 MG/DL (9-23); CALCIUM LEVEL 9.5 MG/DL (8.5-10.1); CARBON DIOXIDE LEVEL 23 MMOL/L (20-31); CHLORIDE LEVEL 99 MMOL/L (98-107); CREATININE FOR GFR 1.01 MG/DL (0.70-1.30); GLOMERULAR FILTRATION RATE > 60.0 (>60); GLUCOSE, FASTING 68 MG/DL (60-100); POTASSIUM SERUM 4.3 MMOL/L (3.5-5.1); SODIUM LEVEL 138 MMOL/L (136-145); TOTAL PROTEIN 7.8 G/DL (5.7-8.2)
[2024-10-02 20:53] LABS: THYROID STIMULATING HORMONE 1.335 uIU/ML (0.55-4.78)
[2024-10-03] MEDS: LORazepam 2 MG/ML 1ML VIAL IM ONE (07:14)
[2024-10-03] MEDS: diphenhydrAMINE 50MG/ML VIAL IM ONE (07:14)
[2024-10-03] MEDS: HALOPERIDOL LACTATE 5MG/ML VIAL IM ONE (07:15)
[2024-10-03] MEDS ORDERED: HOME MED LIST COMPLETE! XX SCH (09:50)
[2024-10-03] MEDS ORDERED: ACETAMINOPHEN 325 MG TAB PO PRN (21:45)
[2024-10-03] MEDS ORDERED: OLANZapine ORAL DISINTEGRATING TAB 5MG PO PRN (21:45)
[2024-10-03] MEDS ORDERED: IBUPROFEN 400MG TAB PO PRN (21:45)
[2024-10-03] MEDS ORDERED: MOM 30ML SUSPENSION UDC PO PRN (21:45)
[2024-10-03] MEDS ORDERED: MAALOX 30 ML SUSP *UDC PO PRN (21:45)
[2024-10-03] MEDS ORDERED: diphenhydrAMINE 25MG CAP PO PRN (21:45)
[2024-10-03] MEDS ORDERED: LORazepam 1 MG TAB PO PRN (21:45)
[2024-10-03] MEDS: MIRTAZAPINE 15 MG TAB PO SCH (21:57)
[2024-10-04 06:20] VITALS: BP 141/71; TEMP 98.6; O2SAT 100
[2024-10-04 15:23] VITALS: BP 121/88; TEMP 96.8; O2SAT 95
[2024-10-05 06:43] VITALS: BP 121/66; TEMP 97.5; O2SAT 98
[2024-10-05 15:22] VITALS: BP 135/89; TEMP 97.1; O2SAT 98
[2024-10-06 06:42] VITALS: BP 122/58; O2SAT 97
[2024-10-06 17:50] VITALS: BP 130/73; TEMP 97.2; O2SAT 97
[2024-10-06] MEDS: risperiDONE 0.5 MG TAB PO SCH (21:07)
[2024-10-07 06:59] VITALS: BP 122/85; TEMP 98.2; O2SAT 96
[2024-10-07 15:59] VITALS: BP 125/81; TEMP 97.2; O2SAT 100
[2024-10-07] MEDS: RISPERIDONE 1 MG TAB PO SCH (20:14)
[2024-10-07] MEDS ORDERED: RISPERIDONE 1 MG TAB PO SCH (21:00)
[2024-10-08 06:45] VITALS: BP 132/77; O2SAT 97
[2024-10-08 15:35] VITALS: BP 166/77; TEMP 97.3; O2SAT 99
[2024-10-09 06:33] VITALS: BP 119/66; TEMP 98.3; O2SAT 95
[2024-10-09 14:51] VITALS: BP 157/87; TEMP 97.7; O2SAT 97
[2024-10-09] MEDS: risperiDONE 0.5 MG TAB PO SCH (20:18)
[2024-10-10 06:26] VITALS: BP 158/80; TEMP 97.9; O2SAT 96
[2024-10-10 17:07] VITALS: BP 135/72; TEMP 98.1; O2SAT 98
[2024-10-10] MEDS: traZODone 50 MG TAB PO PRN (20:49)
[2024-10-11 06:34] VITALS: BP 141/87; O2SAT 98
[2024-10-11] MEDS ORDERED: hydrOXYzine 50 MG TAB PO PRN (14:00)
[2024-10-11 15:45] VITALS: BP 139/75; TEMP 97.7; O2SAT 97
[2024-10-11] MEDS: risperiDONE 2 MG TAB PO SCH (20:32)
[2024-10-12 07:07] VITALS: BP 123/70; O2SAT 96
[2024-10-12 15:00] VITALS: BP 129/72; TEMP 97.7; O2SAT 98
[2024-10-13 06:48] VITALS: BP 126/72; TEMP 97.5; O2SAT 100
[2024-10-13 17:07] VITALS: BP 144/86; TEMP 97.2; O2SAT 96
[2024-10-14 06:48] VITALS: BP 129/60; O2SAT 99
[2024-10-14 16:05] VITALS: BP 146/84; TEMP 98.1
[2024-10-15 16:08] VITALS: BP 144/76; TEMP 97.5; O2SAT 98
[2024-10-16 06:40] VITALS: BP 138/80; TEMP 98.5; O2SAT 100
[2024-10-17 06:38] VITALS: BP 139/87; O2SAT 96
[2024-10-18 06:23] VITALS: BP 123/66; O2SAT 97
[2024-10-18 15:38] VITALS: BP 127/92; TEMP 97.5; O2SAT 95
[2024-10-19 06:20] VITALS: BP 147/65; TEMP 98.4; O2SAT 100
[2024-10-19 16:14] VITALS: BP 126/76; TEMP 98; O2SAT 97
[2024-10-20 06:46] VITALS: BP 144/84; O2SAT 97
[2024-10-20 16:23] VITALS: BP 132/75; TEMP 98; O2SAT 97
[2024-10-21 15:47] VITALS: BP 134/72; TEMP 97.6; O2SAT 99
[2024-10-22 06:30] VITALS: BP 110/66; TEMP 98; O2SAT 96
[2024-10-22 15:23] VITALS: BP 148/92; TEMP 97.4; O2SAT 98
[2024-10-23] MEDS ORDERED: MIRT-10 PO (12:54)
[2024-10-23] MEDS ORDERED: RISP2TAB32 PO (12:54)
[2024-10-23] MEDS ORDERED: TRAZ-252 PO (12:54)
[2024-10-23] MEDS ORDERED: HYDR50TA70 PO (12:54)
== END 2024-10-23 13:50 | disposition home or self-care (01) | DRG 750 ==
LOC: M ED 18:59 → M ED INP 10-03 16:23 → EEVIPCON 10-03 16:23 → M PSY 10-03 17:36
PROVIDERS: ADMIT Psychiatry & Neurology Psychiatry; ATTEND Internal Medicine
DX: F25.0 Schizoaffective disorder, bipolar type (principal); F15.20 Other stimulant dependence, uncomplicated; R74.01 Elevation of levels of liver transaminase levels; Z59.00 Homelessness unspecified; Z88.2 Allergy status to sulfonamides; F12.10 Cannabis abuse, uncomplicated; F41.9 Anxiety disorder, unspecified

== ENCOUNTER 2024-10-25 14:52 | Inpatient (IN) | payer MEDICAID ==
[~2024-10-25] VITALS: Ht 182.9 cm; Wt 110.5 kg
[~2024-10-25 14:52] MED LIST changes: +HYDR50TA70 PO; +RISP2TAB32 PO
[2024-10-25] MEDS: OLANZapine ORAL DISINTEGRATING TAB 5MG PO ONE (15:00)
[2024-10-25 15:33] LABS: HEMATOCRIT 41.5 % (42.0-52.0); HEMOGLOBIN 14.1 g/dl (13.5-17.5); MEAN CORPUSCULAR HEMOGLOBIN 31.5 pg (27.0-33.0); MEAN CORPUSCULAR VOLUME 92.8 fl (80.0-96.0); PLATELET COUNT, AUTOMATED 321 10^3/uL (150-450); RED BLOOD COUNT 4.47 10^6/uL (4.30-6.10)
[2024-10-25 15:58] LABS: ETHYL ALCOHOL (ETHANOL) < 0.003 % (0.000-0.010)
[2024-10-25 15:59] LABS: SALICYLATE LEVEL < 3.0 MG/DL (<30)
[2024-10-25 16:00] LABS: ALBUMIN 4.5 G/DL (3.2-5.2); ALKALINE PHOSPHATASE 61 U/L (40-129); ALT/SGPT 201 U/L (7.0-40); AST/SGOT 122 U/L (<34); BILIRUBIN,DIRECT 0.3 MG/DL (<0.4); BILIRUBIN,TOTAL 1.2 MG/DL (0.3-1.2); BLOOD UREA NITROGEN 13 MG/DL (9-23); CALCIUM LEVEL 9.9 MG/DL (8.5-10.1); CARBON DIOXIDE LEVEL 25 MMOL/L (20-31); CHLORIDE LEVEL 98 MMOL/L (98-107); GLOMERULAR FILTRATION RATE > 60.0 (>60); GLUCOSE, FASTING 111 MG/DL (60-100); POTASSIUM SERUM 4.2 MMOL/L (3.5-5.1); SODIUM LEVEL 137 MMOL/L (136-145); TOTAL PROTEIN 8.4 G/DL (5.7-8.2)
[2024-10-25 16:01] LABS: THYROID STIMULATING HORMONE 1.392 uIU/ML (0.55-4.78)
[2024-10-25 21:20] LABS: BARBITURATES URINE NEGATIVE (NEGATIVE); BENZODIAZEPINES URINE NEGATIVE (NEGATIVE); COCAINE METABOLITE URINE NEGATIVE (NEGATIVE); METHADONE URINE NEGATIVE (NEGATIVE); OPIATES URINE NEGATIVE (NEGATIVE); PHENCYCLIDINE URINE NEGATIVE (NEGATIVE)
[2024-10-25 21:23] LABS: AMPHETAMINES LEVEL URINE POSITIVE (NEGATIVE); CANNABINOIDS URINE POSITIVE (NEGATIVE)
[2024-10-25] MEDS: LORazepam 2 MG/ML 1ML VIAL IM ONE (22:40)
[2024-10-25] MEDS: diphenhydrAMINE 50MG/ML VIAL IM ONE (22:40)
[2024-10-25] MEDS ORDERED: ACETAMINOPHEN 325 MG TAB PO PRN (22:45)
[2024-10-25] MEDS ORDERED: MAALOX 30 ML SUSP *UDC PO PRN (22:45)
[2024-10-25] MEDS ORDERED: IBUPROFEN 400MG TAB PO PRN (22:45)
[2024-10-25] MEDS ORDERED: MOM 30ML SUSPENSION UDC PO PRN (22:45)
[2024-10-25] MEDS: HALOPERIDOL LACTATE 5MG/ML VIAL IM ONE (22:46)
[2024-10-25] MEDS ORDERED: MED REC CURRENTLY UNOBTAINABLE XX SCH (22:50)
[2024-10-26 00:16] VITALS: BP 144/90; TEMP 97.5; O2SAT 97
[2024-10-26] MEDS ORDERED: HALOPERIDOL LACTATE 5MG/ML VIAL IM PRN (15:45)
[2024-10-26] MEDS ORDERED: diphenhydrAMINE 50MG/ML VIAL IM PRN (15:45)
[2024-10-26] MEDS ORDERED: LORazepam 2 MG/ML 1ML VIAL IM PRN (15:45)
[2024-10-26] MEDS ORDERED: MIRT1TAB15 PO (16:18)
[2024-10-26] MEDS ORDERED: HYDR50TA70 PO (16:18)
[2024-10-26] MEDS ORDERED: MIRT-88 PO (16:21)
[2024-10-26] MEDS ORDERED: HOME MED LIST COMPLETE! XX SCH (16:25)
[2024-10-26] MEDS: RISPERIDONE 1 MG TAB PO SCH (21:02)
[2024-10-26] MEDS: DIVALPROEX 500MG *ER* TAB PO SCH (21:02)
[2024-10-28 06:32] VITALS: BP 110/52; TEMP 97.7; O2SAT 98
[2024-10-28] MEDS: DIVALPROEX 500MG *ER* TAB PO SCH (12:00)
[2024-10-28] MEDS: RISPERIDONE 1 MG TAB PO SCH (12:00)
[2024-10-28 15:14] VITALS: BP 146/89; TEMP 97.3; O2SAT 99
[2024-10-28] MEDS: traZODone 50 MG TAB PO PRN (20:17)
[2024-10-29] MEDS ORDERED: PALIPERIDONE 3MG ER TAB (INVEGA) PO SCH (09:00)
[2024-10-29] MEDS: PALIPERIDONE 3MG ER TAB (INVEGA) PO SCH ×2 (12:00→20:09)
[2024-10-29 18:10] VITALS: BP 150/79; TEMP 97
[2024-10-30 06:32] VITALS: BP 125/65; TEMP 97; O2SAT 95
[2024-10-31 06:41] VITALS: BP 131/75; TEMP 97; O2SAT 99
[2024-10-31] MEDS ORDERED: DIVALPROEX 500MG *ER* TAB PO SCH (16:50)
[2024-10-31] MEDS: PALIPERIDONE 6MG ER TAB (INVEGA) PO SCH (20:24)
[2024-10-31] MEDS: DIVALPROEX 500MG *ER* TAB PO SCH (20:27)
[2024-11-02 15:28] VITALS: BP 127/77; TEMP 97; O2SAT 99
[2024-11-03 06:39] VITALS: BP 131/66; TEMP 97.3; O2SAT 100
[2024-11-03 16:05] VITALS: BP 147/72; TEMP 97.2; O2SAT 100
[2024-11-03] MEDS: DIVALPROEX 500MG *ER* TAB PO SCH (20:56)
[2024-11-04 15:15] VITALS: BP 121/72; TEMP 97.8; O2SAT 97
[2024-11-05 16:22] VITALS: BP 130/67; TEMP 97.9; O2SAT 98
[2024-11-06 15:25] VITALS: BP 123/89; TEMP 97.6; O2SAT 99
[2024-11-07 17:20] VITALS: BP 124/82; TEMP 96.8; O2SAT 96
[2024-11-07] MEDS: diphenhydrAMINE 25MG CAP PO PRN (20:15)
[2024-11-08 15:30] VITALS: BP 124/84; TEMP 97.1; O2SAT 96
[2024-11-09 15:20] VITALS: BP 142/89; TEMP 97.8; O2SAT 97
[2024-11-10 15:20] VITALS: BP 131/75; TEMP 97.6; O2SAT 98
[2024-11-11 14:57] VITALS: BP 150/92; TEMP 97.6; O2SAT 95
[2024-11-11] MEDS: MIRTAZAPINE 15 MG TAB PO SCH (20:38)
[2024-11-12] MEDS ORDERED: DEPA500T2 PO (07:42)
[2024-11-12] MEDS ORDERED: PALI1TAB3 PO (07:42)
== END 2024-11-12 08:36 | DRG 750 ==
LOC: M ED 14:52 → M ED INP 22:43 → M PSY 22:44
PROVIDERS: ADMIT Psychiatry & Neurology Neurology; ATTEND Student in an Organized Health Care Education/Training Program
DX: F25.0 Schizoaffective disorder, bipolar type (principal); F15.20 Other stimulant dependence, uncomplicated; F41.9 Anxiety disorder, unspecified; F12.20 Cannabis dependence, uncomplicated; R74.01 Elevation of levels of liver transaminase levels; Z78.1 Physical restraint status; Z59.00 Homelessness unspecified; Z79.899 Other long term (current) drug therapy; Z88.2 Allergy status to sulfonamides

== ENCOUNTER 2025-02-12 02:14 | Emergency (ER) | payer OTHER ==
[~2025-02-12] VITALS: Ht 177.8 cm; Wt 109.1 kg
[~2025-02-12 02:14] MED LIST changes: +DEPA500T2 PO; +MIRT-88 PO; +MIRT1TAB15 PO; +PALI1TAB3 PO
[2025-02-12 02:58] LABS: CARBOXYHEMOGLOBIN 2.4 % (0.0-1.5); METHEMOGLOBIN 0.2 % (0.0-2.0); VENOUS BASE EXCESS 1.2 (-2.0-2.0); VENOUS HCO3 26.2 MMOL/L (23.0-27.0); VENOUS O2 SATURATION 91.7 % (60.0-80.0); VENOUS PARTIAL PRESSURE CO2 42.5 mmHg (38.0-50.0); VENOUS PH 7.407 UNITS (7.330-7.430); VENOUS STANDARD HCO3 25.4 MMOL/L; VENOUS TOTAL CO2 27.5 MMOL/L (24.0-28.0)
[2025-02-12] MEDS: NS (Normal Saline) 0.9% 1,000 ML IV ONE (03:09)
[2025-02-12 03:10] LABS: BASO % 0.6 % (0.0-1.0); EOS % 0.6 % (0.0-3.0); HEMATOCRIT 39.8 % (42.0-52.0); HEMOGLOBIN 13.5 g/dl (13.5-17.5); LYMPH # 1.7 10^3/uL (1.5-5.0); LYMPH % 34.8 % (24.0-44.0); MEAN CORPUSCULAR HEMOGLOBIN 31.8 pg (27.0-33.0); MEAN CORPUSCULAR HGB CONC 33.9 g/dl (32.0-36.5); MEAN CORPUSCULAR VOLUME 93.9 fl (80.0-96.0); MONO # 0.5 10^3/uL (0.0-0.8); MONO % 10.2 % (2.0-8.0); NEUTROPHILS # 2.6 10^3/uL (1.5-8.5); NEUTROPHILS % 53.6 % (36.0-66.0); PLATELET COUNT, AUTOMATED 246 10^3/uL (150-450); RED BLOOD COUNT 4.24 10^6/uL (4.30-6.10); WHITE BLOOD COUNT 4.9 10^3/uL (4.0-10.0)
[2025-02-12 03:34] LABS: ETHYL ALCOHOL (ETHANOL) < 0.003 % (0.000-0.010)
[2025-02-12 03:36] LABS: SALICYLATE LEVEL < 3.0 MG/DL (<30)
[2025-02-12 03:38] LABS: THYROID STIMULATING HORMONE 1.928 uIU/ML (0.55-4.78)
[2025-02-12 03:40] LABS: ALKALINE PHOSPHATASE 55 U/L (40-129); ALT/SGPT 30 U/L (7.0-40); AST/SGOT 35 U/L (<34); BILIRUBIN,DIRECT 0.2 MG/DL (<0.4); BILIRUBIN,TOTAL 0.6 MG/DL (0.3-1.2); BLOOD UREA NITROGEN 10 MG/DL (9-23); CALCIUM LEVEL 8.5 MG/DL (8.5-10.1); CARBON DIOXIDE LEVEL 24 MMOL/L (20-31); CHLORIDE LEVEL 104 MMOL/L (98-107); GLOMERULAR FILTRATION RATE > 90.0 (>60); GLUCOSE, FASTING 96 MG/DL (60-100); POTASSIUM SERUM 3.6 MMOL/L (3.5-5.1); SODIUM LEVEL 141 MMOL/L (136-145); TOTAL PROTEIN 7.2 G/DL (5.7-8.2)
[2025-02-12 03:42] LABS: CPK CREATINE PHOSPHOKINASE 586 U/L (46-171)
[2025-02-12 03:53] VITALS: BP 136/89; O2SAT 99
[2025-02-12 03:54] VITALS: TEMP 98
[2025-02-12 04:31] LABS: BARBITURATES URINE NEGATIVE (NEGATIVE); BENZODIAZEPINES URINE NEGATIVE (NEGATIVE); COCAINE METABOLITE URINE NEGATIVE (NEGATIVE); METHADONE URINE NEGATIVE (NEGATIVE); OPIATES URINE NEGATIVE (NEGATIVE); PHENCYCLIDINE URINE NEGATIVE (NEGATIVE)
[2025-02-12 04:43] LABS: AMPHETAMINES LEVEL URINE POSITIVE (NEGATIVE); CANNABINOIDS URINE POSITIVE (NEGATIVE)
[2025-02-21] MEDS ORDERED: CLON-412 PO (01:20)
[2025-02-21] MEDS ORDERED: PALI1TAB3 PO (01:20)
[2025-02-21] MEDS ORDERED: DIVA500T9 PO (01:20)
== END 2025-02-12 08:21 | disposition home or self-care (01) ==
LOC: M ED 02:14
DX: F19.10 Other psychoactive substance abuse, uncomplicated (principal); Z76.5 Malingerer [conscious simulation]; Z91.51 Personal history of suicidal behavior; F17.290 Nicotine dependence, other tobacco product, uncomplicated; F12.10 Cannabis abuse, uncomplicated; Z79.899 Other long term (current) drug therapy; Z88.2 Allergy status to sulfonamides

== ENCOUNTER 2025-02-12 22:40 | Emergency (ER) | payer OTHER ==
[~2025-02-12] VITALS: Ht 177.8 cm; Wt 112.7 kg
[2025-02-12 22:50] VITALS: TEMP 98.7
[2025-02-13] MEDS: MIRTAZAPINE 15 MG TAB PO SCH (00:03)
[2025-02-13] MEDS: RISPERIDONE 1 MG TAB PO ONE (00:03)
[2025-02-13 07:28] VITALS: BP 138/91; O2SAT 98
[2025-02-21] MEDS ORDERED: CLON-412 PO (01:20)
[2025-02-21] MEDS ORDERED: DIVA500T9 PO (01:20)
[2025-02-21] MEDS ORDERED: PALI1TAB3 PO (01:20)
== END 2025-02-13 09:58 | disposition home or self-care (01) ==
LOC: M ED 22:40 → EDBD 22:40 → M ED 02-13 09:58
DX: Z76.5 Malingerer [conscious simulation] (principal); I10 Essential (primary) hypertension; F31.9 Bipolar disorder, unspecified; F20.9 Schizophrenia, unspecified; F12.10 Cannabis abuse, uncomplicated; Z79.899 Other long term (current) drug therapy; Z88.2 Allergy status to sulfonamides